=== PATIENT | female | born 1945 | race Caucasian/White ===

== ENCOUNTER 2016-12-13 18:21 | Inpatient (IN) | payer MEDICARE, MEDICAID ==
--- NOTE | 2016-12-13 19:25 | ED Physician Chart ---
Chief Complaint/HPI - Patient Information Date Seen:: 12/13/16 Time Seen:: 19:22 Chief Complaint:: l side pain History of Present Illness:: pt began w a "rash " on left hip area on monday. no known hx of trauma or a fall. dtr is usually nearby when pt is in motion and doubts a fall could have occurred. pt was walking yesterday but after her dialysis session complained l leg pain worse and wont walk. pt has prior fx/sx of l hip. pt says rash very tndr to lt touch. no fever. no known hx of sciatic type pains. pt asks for pain med..is not usually on pain meds Vitals:: Vital Signs - 8 hr 12/13/16 18:55 Temp 98.4 F HR 115 RR 16 BP 113/68 O2 Sat % 98 Historian:: Patient, Family Member (dtr) Review of Systems - Review of Systems General/Constitutional: No fever, No chills, No weight loss, No weakness, No diaphoresis, No edema, No loss of appetite Skin: No skin lesions, No rash, No bruising Head: No headache, No light-headedness Eyes: No loss of vision, No pain, No diplopia ENT: No earache, No nasal drainage, No sore throat, No tinnitus Neck: No neck pain, No swelling, No thyromegaly, No stiffness, No mass noted Cardio Vascular: No chest pain, No palpitations, No PND, No orthopnea, No edema Pulmonary: No SOB, No cough, No sputum, No wheezing GI: No nausea, No vomiting, No diarrhea, No pain, No melena, No hematochezia, No constipation, No hematemesis G/U: No dysuria, No frequency, No hematuria Musculoskeletal: No bone or joint pain, No back pain, No muscle pain, Other ( pain along l lat side/flank/hip) Endocrine: No polyuria, No polydipsia Psychiatric: No prior psych history, No depression, No anxiety, No suicidal ideation Hematopoietic: No bruising, No lymphadenopathy Allergic/Immuno: No urticaria, No angioedema Neurological: No syncope, No focal symptoms, No weakness, No paresthesia, No headache, No seizure, No dizziness, No confusion, No vertigo Past Medical History - Past Medical History Past Medical History: DM, CVA/TIA (loss vision rt eye only), ESRD (dialysis m/w/ f), Other (a fib hx but not on rate meds , non-etoh related cirrhosis) Social History: Other (lives in [facility] alone) Surgical History: other (dialysis shunt left bicep) Medication: Reviewed Physical Exam - Physical Examination General/Constitutional: Awake, Well-developed, well-nourished, Alert, No distress, GCS 15, Non-toxic appearing, Ambulatory Other Gen/Cons comments:: mod obese. wont walk now. Head: Atraumatic Eyes: Lids, conjuctiva normal, PERRL, EOMI Skin: Nl inspection, No rash, No skin lesions, No ecchymosis, Well hydrated, No lymphadenopathy ENMT: External ears, nose nl, Nasal exam nl, Lips, teeth, gums nl Neck: Nontender, Full ROM w/o pain, No JVD, No nuchal rigidity, No bruit, No mass, No stridor Respiratory: Nl effort/Exclusion, Clear to Auscultation, No Wheeze/Rhonchi/Rales Cardio Vascular: No murmur, gallop, rubs, NL S1 S2 Other Cardio Vascular comments:: irreg irreg hrt beat w ? slt murmur GI: No tenderness/rebounding/guarding, No organomegaly, No hernia, Normal BS's, Nondistended, No mass/bruits, No McBurney tenderness : No CVA tenderness Extremities: No tenderness or effusion, Full ROM, normal strength in all extremities, No edema, Normal digits & nails Other Extremities comments:: dialysis shunt left bicep..clean , no infection left side has ecchymosis from left hip to thigh and up side to flank. pt refuses to straight leg raise on l due to pain. sensation in feet ok. Neuro/Psych: Alert/oriented, DTR's symmetric, Normal sensory exam, Normal motor strength, Judgement/insight normal, Mood normal, Normal gait, No focal deficits Misc: normal gait, Normal back, No paraspinal tenderness Labs/Radiology/EKG Results - Lab Results Results: Laboratory Tests 12/13/16 12/13/16 12/13/16 19:37 19:37 19:37 WBC 4.5 L RBC 3.62 L Hgb 12.6 Hct 37.9 MCV 104.8 H MCH 34.8 H MCHC Differential 33.2 RDW 18.1 Plt Count 44 L MPV 9.3 Band Neutrophils % 12 H Neutrophils (Manual) 80 Lymphocytes 4 L Monocytes 4 Eosinophils 0 Basophils 0 Platelet Estimate DECREASED PLATELETS Platelet Morphology NORMAL RBC Morph Micro Appear NORMAL PT 14.5 H INR 1.37 PTT (Actin FS) 39.0 H Sodium 134 L Potassium 2.9 L* Chloride 97 L Carbon Dioxide 26.7 Anion Gap 13.2 BUN 40 H Creatinine 5.2 H* Est GFR ( Amer) TNP Est GFR (Non-Af Amer) TNP BUN/Creatinine Ratio 7.7 Glucose 141 H Calcium 9.2 Total Bilirubin 2.0 H AST 29 ALT 14 Alkaline Phosphatase 129 H Total Protein 5.6 L Albumin 2.7 L Globulin 2.9 Albumin/Globulin Ratio 0.9 L - Radiology Results Results: rt hip xray - no fx. old hardware from hip replacement ok - EKG Interpretations EKG Time:: 19:45 Rate & Rhythm: a fib w 104 v rate Ririe: 34 Intervals: qtc 487 ED Septic Shock - . Is Septic Shock (SBP<90, OR Lactate>4 mmol\\L) present?: No - <6hrs of presentation: Vital Signs: Vital Signs - 8 hr 12/13/16 18:55 Temp 98.4 F HR 115 RR 16 BP 113/68 O2 Sat % 98 Reassessment (Disposition) - Reassessment Reassessment:: clinical thinking- rash seems most consistent w trauma but report is none occurred. story seems cw a herpez zostre but appearance of rash seems to not correlate as rash crosses many dermatomes and is ecchymosis and not vessicular. doesnt appear to be cellulitis. given pts poor reserve and severe pain syndrome and uncertain dx have advised admit. concerns include pemphigus vulgarus or infection or bleeding dyscrasia. d/w dr chaidez..will admit. Reassessment Condition:: Improved - Diagnosis Diagnosis:: 1 left leg/flank pain 2 rash of uncertain etiology r/o infection of blood dyscrasia 3 renal failure//dialysis pt 4 stable chronic a fib - Patient Disposition Admitted to:: Telemetry Condition at Disposition:: Improved
[2016-12-13] MEDS ORDERED: Morphine Sulfate 2 mg/mL 1mL Syr IVP STA ×2 (19:29→21:32)
[2016-12-13] MEDS ORDERED: Morphine Sulfate 2 mg/mL 1mL Syr ONE ×2 (19:49→21:33)
[2016-12-13 19:55] LABS: HEMATOCRIT 37.9 % (35.0-45.0); HEMOGLOBIN 12.6 gm/dL (11.7-16.1); MEAN CELL VOLUME 104.8 fl (81-100); MEAN CORPUSCULAR HEMOGLOBIN 34.8 pg (27.0-31.0); MEAN CORPUSCULAR HGB CONC 33.2 pg (28.0-36.0); MEAN PLATELET VOLUME 9.3 fl; PLATELET COUNT 44 Th/cmm (150-400); RED BLOOD COUNT 3.62 Mil/cmm (3.80-5.20); RED CELL DISTRIBUTION WIDTH 18.1 % (11.5-20.0); WHITE BLOOD COUNT 4.5 Th/cmm (4.8-10.8)
[2016-12-13 20:01] LABS: ALB/GLOB RATIO 0.9 (1.0-1.8); ALKALINE PHOSPHATASE 129 U/L (34-104); ANION GAP 13.2 (7.0-16.0); BUN - UREA NITROGEN 40 mg/dL (7-25); BUN/CREATININE RATIO 7.7; CALCIUM SERUM 9.2 mg/dL (8.6-10.3); CARBON DIOXIDE 26.7 mEq/L (21.0-31.0); CHLORIDE 97 mEq/L (98-107); GLUCOSE 141 mg/dL (70-105); SGOT 29 U/L (13-39); SGPT/ALT 14 U/L (7-52); SODIUM SERUM 134 mEq/L (136-145)
[2016-12-13 20:16] LABS: POTASSIUM SERUM 2.9 mEq/L (3.5-5.1)
[2016-12-13 20:19] LABS: CREATININE - SERUM 5.2 mg/dL (0.6-1.2)
[2016-12-13 20:48] LABS: TOTAL CELLS COUNTED 100
[2016-12-13 21:10] LABS: BAND NEUTROPHILE 12 % (0-10); INR 1.37 (0.5-1.4); NEUTROPHILS 80 % (40-80); PROTHROMBIN TIME (TEST) 14.5 SECONDS (9.5-11.5)
[2016-12-13 21:11] LABS: BASOPHIL 0 % (0-3); EOSINOPHIL 0 % (0-5); PLATELET ESTIMATE DECREASED PLATELETS (NORMAL); PLATELET MORPHOLOGY NORMAL (NORMAL)
[2016-12-14] MEDS: Morphine Sulfate 2 mg/mL 1mL Syr IVP PRN ×3 (02:29→22:59)
--- NOTE | 2016-12-14 08:10 | Diagnostic Imaging Report ---
Left hip 2 views Indication: Pain and ecchymosis, rule out fracture Comparison: none Findings: A bipolar left hip hemiarthroplasty is noted.1-2 mm space is seen between the superior aspect of the acetabular component and the superior left acetabulum. No evidence of an acute fracture or dislocation. Atherosclerotic vascular disease is noted. Degenerative changes lower lumbar spine are noted. Impression: Evidence of previous bipolar left hip hemiarthroplasty. No evidence of an acute fracture. 1 to 2 mm space between the superior aspect of the left acetabular component of the prosthesis and the superior left acetabulum. This may be within the range of normal. Please correlate patient's clinical findings and old exams. In the setting of trauma, if clinical symptoms persist and there is continued concern for an occult fracture, follow up exams in 5-7 days is suggested.
--- NOTE | 2016-12-14 08:18 | History and Physical ---
History of Present Illness - HPI Chief Complaint: Left Side Pain HPI: 71 year old female who present with complaints of pain to the left side. Patient began with rash to the left hip area on Monday. no falls or trauma or fall. Patient had dialysis yesterday after which she developed pain to the left leg. Patient has previous history of fx to the left hip. patient has tender rash to the left hip. no fever. Vital Signs: Last Vital Signs Temp 97.0 F 12/14/16 04:33 Pulse 103 12/14/16 04:33 Resp 17 12/14/16 04:33 BP 107/68 12/14/16 04:33 Pulse Ox 96 12/14/16 00:33 Past Medical History Cardiovascular: Report: No Pertinent Hx Pulmonary: Report: No Pertinent Hx [employer]: Report: CVA, TIA GI: Report: No Pertinent Hx Psych: Report: No Pertinent Hx Musculoskeletal: Report: No Pertinent Hx Rheumatologic: Report: No pertinent Hx Infectious Disease: Report: No Pertinent Hx Renal/: Report: No Pertinent Hx, Other (ESRD) Endocrine: Report: Diabetes Dermatology: Report: No Pertinent Hx - Past Surgical History Past Surgical History: No pertinent Hx Family Medical History - Family Member Mother History Unknown: Yes Social History Smoke: No Alcohol: None Drugs: None Lives: With Family - Medications Home Medications: Home Medication Medication Instructions Recorded Type Cacium Carbonate 648 mg PO TID 12/13/16 History Calcitriol [Rocaltrol] 1 tab PO DAILY 12/13/16 History Folic Acid [Folate*] 1 tab PO DAILY 12/13/16 History Folic Acid/Vit Bcomp,C [Full 1 tab PO DAILY 12/13/16 History Spectrum B with Vit C Tab] Pantoprazole Sodium 1 tab PO DAILY 12/13/16 History Propranolol HCl [Inderal*] 1 tab PO TID 12/13/16 History Rifaximin [Xifaxan] 1 tab PO Q12H 12/13/16 History Sevelamer Carnonate [Renvela] 1 tab PO TID 12/13/16 History Tramadol HCl [Ultram] 1 tab PO Q8H 12/13/16 History Vit D2 1.25 mg PO QWEEK 0730 12/13/16 History - Allergies Allergies/Adverse Reactions: Allergies Allergy/AdvReac Type Severity Reaction Status Date / Time No Known Allergies Allergy Verified 12/13/16 19:23 Review of Systems - Review of Systems Constitutional: Report: No Significant Eyes: Report: No Significant ENT: Report: No Significant Respiratory: Report: No Significant Cardiovascular: Report: No Significant Gastrointestinal: Report: No Significant Genitourinary: Report: No Significant Musculoskeletal: Report: No Significant Skin: Report: No Significant Neurological: Report: No Significant Physical Exam - Physical Exam HEENT: Report: Ears Nose Throat within normal limits, Pharnyx within normal limits Neck: Report: Within normal limits Cardiovascular Systems: Report: +s1/s2 noted, Irregular rhythm was noted Respiratory: Report: Breath Sounds are within normal limits, Clear to Auscultation of lung conn Abdomen: Report: Non-tender to palpation Back: Report: Inspection of back is within normal limits. Extremities: Report: Non-tender to palpation. Skin: Report: Color of skin is within normal limits, Warm - Lab Results All Lab Results last 24 hours: Laboratory Last Values WBC 4.5 Th/cmm (4.8-10.8) L 12/13/16 19:37 RBC 3.62 Mil/cmm (3.80-5.20) L 12/13/16 19:37 Hgb 12.6 gm/dL (11.7-16.1) 12/13/16 19:37 Hct 37.9 % (35.0-45.0) 12/13/16 19:37 MCV 104.8 fl (81-100) H 12/13/16 19:37 MCH 34.8 pg (27.0-31.0) H 12/13/16 19:37 MCHC Differential 33.2 pg (28.0-36.0) 12/13/16 19:37 RDW 18.1 % (11.5-20.0) 12/13/16 19:37 Plt Count 44 Th/cmm (150-400) L 12/13/16 19:37 MPV 9.3 fl 12/13/16 19:37 Band Neutrophils % 12 % (0-10) H 12/13/16 19:37 Neutrophils (Manual) 80 % (40-80) 12/13/16 19:37 Lymphocytes 4 % (20-50) L 12/13/16 19:37 Monocytes 4 % (2-10) 12/13/16 19:37 Eosinophils 0 % (0-5) 12/13/16 19:37 Basophils 0 % (0-3) 12/13/16 19:37 Platelet Estimate DECREASED PLATELETS (NORMAL) 12/13/16 19:37 Platelet Morphology NORMAL (NORMAL) 12/13/16 19:37 RBC Morph Micro Appear NORMAL (NORMAL) 12/13/16 19:37 PT 14.5 SECONDS (9.5-11.5) H 12/13/16 19:37 INR 1.37 (0.5-1.4) 12/13/16 19:37 PTT (Actin FS) 39.0 SECONDS (26.0-38.0) H 12/13/16 19:37 Sodium 134 mEq/L (136-145) L 12/13/16 19:37 Potassium 2.9 mEq/L (3.5-5.1) L* 12/13/16 19:37 Chloride 97 mEq/L (98-107) L 12/13/16 19:37 Carbon Dioxide 26.7 mEq/L (21.0-31.0) 12/13/16 19:37 Anion Gap 13.2 (7.0-16.0) 12/13/16 19:37 BUN 40 mg/dL (7-25) H 12/13/16 19:37 Creatinine 5.2 mg/dL (0.6-1.2) H* 12/13/16 19:37 Est GFR ( Amer) TNP 12/13/16 19:37 Est GFR (Non-Af Amer) TNP 12/13/16 19:37 BUN/Creatinine Ratio 7.7 12/13/16 19:37 Glucose 141 mg/dL (70-105) H 12/13/16 19:37 Calcium 9.2 mg/dL (8.6-10.3) 12/13/16 19:37 Total Bilirubin 2.0 mg/dL (0.3-1.0) H 12/13/16 19:37 AST 29 U/L (13-39) 12/13/16 19:37 ALT 14 U/L (7-52) 12/13/16 19:37 Alkaline Phosphatase 129 U/L (34-104) H 12/13/16 19:37 Total Protein 5.6 gm/dL (6.0-8.3) L 12/13/16 19:37 Albumin 2.7 gm/dL (3.7-5.3) L 12/13/16 19:37 Globulin 2.9 gm/dL 12/13/16 19:37 Albumin/Globulin Ratio 0.9 (1.0-1.8) L 12/13/16 19:37 - Assessment Assessment: left leg pain secondary to #2 rash suspicious of herpes zoster ... will order acyclovir PO and gabapentin PO. Will order ID consult with Dr. Shemar Negron ESRD on HD .. renal consult dialysis per nephrology DM .. will order HgA1c, TSH CVA/TIA hypokalemia ... will repeat K+ chronic atrial fibrillation ... will order cardiology consult. ECHO to be read by Cardiology. - Plan Plan: left leg pain rash suspicious of herpes zoster ... will order acyclovir PO and gabapentin PO ESRD on HD .. renal consult dialysis per renal DM CVA/TIA hypokalemia ... will repeat K+ chronic atrial fibrillation ... will order cardiology consult. ECHO to be read by Cardiology.
[2016-12-14 09:26] LABS: HEMATOCRIT 39.4 % (35.0-45.0); HEMOGLOBIN 12.8 gm/dL (11.7-16.1); MEAN CELL VOLUME 103.3 fl (81-100); MEAN CORPUSCULAR HEMOGLOBIN 33.7 pg (27.0-31.0); MEAN CORPUSCULAR HGB CONC 32.6 pg (28.0-36.0); MEAN PLATELET VOLUME 9.3 fl; PLATELET COUNT 48 Th/cmm (150-400); RED BLOOD COUNT 3.81 Mil/cmm (3.80-5.20)
[2016-12-14 09:27] LABS: WHITE BLOOD COUNT 6.5 Th/cmm (4.8-10.8)
[2016-12-14 09:37] LABS: TOTAL CELLS COUNTED 100
[2016-12-14 09:42] LABS: BAND NEUTROPHILE 7 % (0-10); NEUTROPHILS 87 % (40-80)
[2016-12-14 09:43] LABS: PLATELET ESTIMATE DECREASED PLATELETS (NORMAL)
[2016-12-14 09:44] LABS: PLATELET MORPHOLOGY NORMAL (NORMAL)
[2016-12-14 10:52] LABS: ALB/GLOB RATIO 0.9 (1.0-1.8); ALKALINE PHOSPHATASE 132 U/L (34-104); ANION GAP 15.8 (7.0-16.0); BUN - UREA NITROGEN 45 mg/dL (7-25); BUN/CREATININE RATIO 7.8; CALCIUM SERUM 8.9 mg/dL (8.6-10.3); CARBON DIOXIDE 27.6 mEq/L (21.0-31.0); CHLORIDE 95 mEq/L (98-107); GLUCOSE 157 mg/dL (70-105); POTASSIUM SERUM 3.4 mEq/L (3.5-5.1); SGOT 29 U/L (13-39); SGPT/ALT 14 U/L (7-52); SODIUM SERUM 135 mEq/L (136-145)
[2016-12-14 10:58] LABS: CREATININE - SERUM 5.8 mg/dL (0.6-1.2)
[2016-12-14] MEDS: Vitamin B Complex w/Vitamin C Tab PO SCH (11:59)
[2016-12-14] MEDS: Sevelamer Carnonate 800 mg Tab PO SCH ×3 (12:00→21:03)
[2016-12-14] MEDS: Pantoprazole 40 mg EC Tab PO SCH (12:00)
--- NOTE | 2016-12-14 23:39 | Consultation ---
Consult Note - Consult Note Service Date: 12/14/16 Referring Physician: Rod Domínguez Consult Note: PHYSICIAN Consultation Note: Date of Admission: 12/13/16 Purpose of Consultation: painful skin lesion in L hip and leg pain. Chief Complaint: Patient SHIRIN CLARKE was admitted to [facility] Telemetry with RENAL FAILURE-L HIP PAIN-A-FIB. History of Present Illness: Patient is a 71 year female with a past medical history her CKD on hemodialysis , hypertension, diabetes mellitus type 2, atrial fibrillation, history of TIA admitted to the hospital for left hip pain with blister formation with underlying erythema. There is a large area of darkening of the skin with pain in the left leg. Patient has no fever. No chills. Past Medical History: CKD 5 on HD, HTN, DM2, CHRONIC ATRIAL FIBRILLATION, H/O TIA. Diagnoses ZOSTER WITHOUT COMPLICATIONS (12/13/16) TYPE 2 DIABETES MELLITUS W DIABETIC CHRONIC KIDNEY DISEASE (12/13/16) HYPOKALEMIA (12/13/16) HYP CHR KIDNEY DISEASE W STAGE 5 CHR KIDNEY DISEASE OR ESRD (12/13/16) CHRONIC ATRIAL FIBRILLATION (12/13/16) PAIN IN LEFT HIP (12/13/16) END STAGE RENAL DISEASE (12/13/16) PRSNL HX OF TIA (TIA), AND CEREB INFRC W/O RESID DEFICITS (12/13/16) DEPENDENCE ON RENAL DIALYSIS (12/13/16) Allergies Allergy/AdvReac Type Severity Reaction Status Date / Time No Known Allergies Allergy Verified 12/13/16 19:23 Vital Signs Temp 99.5 F 12/14/16 20:00 Pulse 96 12/14/16 21:04 Resp 18 12/14/16 20:00 BP 94/55 12/14/16 21:04 Pulse Ox 97 12/14/16 20:00 Intake & Output 12/14/16 12/14/16 12/15/16 06:59 18:59 06:59 Intake Total 30 400 Balance 30 400 Weight (lbs) 66.224 kg 66.224 kg Intake: Oral 30 400 Other: # Bowel Movements 0 1 Stool Characteristics Soft Laboratory Results - last 24 hr 12/14/16 12/14/16 12/14/16 08:50 08:50 08:50 WBC 6.5 D RBC 3.81 Hgb 12.8 Hct 39.4 MCV 103.3 H MCH 33.7 H MCHC Differential 32.6 RDW 18.0 Plt Count 48 L MPV 9.3 Band Neutrophils % 7 Neutrophils (Manual) 87 H Lymphocytes 3 L Monocytes 3 Platelet Estimate DECREASED PLATELETS Platelet Morphology NORMAL Sodium 135 L Potassium 3.4 L Chloride 95 L Carbon Dioxide 27.6 Anion Gap 15.8 BUN 45 H Creatinine 5.8 H* Est GFR ( Amer) TNP Est GFR (Non-Af Amer) TNP BUN/Creatinine Ratio 7.8 Glucose 157 H Calcium 8.9 Total Bilirubin 2.0 H AST 29 ALT 14 Alkaline Phosphatase 132 H Total Protein 5.4 L Albumin 2.6 L Globulin 2.8 Albumin/Globulin Ratio 0.9 L TSH 2.67 Home Medication Medication Instructions Recorded Type Cacium Carbonate 648 mg PO TID 12/13/16 History Calcitriol [Rocaltrol] 1 tab PO DAILY 12/13/16 History Folic Acid [Folate*] 1 tab PO DAILY 12/13/16 History Folic Acid/Vit Bcomp,C [Full 1 tab PO DAILY 12/13/16 History Spectrum B with Vit C Tab] Pantoprazole Sodium 1 tab PO DAILY 12/13/16 History Propranolol HCl [Inderal*] 1 tab PO TID 12/13/16 History Rifaximin [Xifaxan] 1 tab PO Q12H 12/13/16 History Sevelamer Carnonate [Renvela] 1 tab PO TID 12/13/16 History Tramadol HCl [Ultram] 1 tab PO Q8H 12/13/16 History Vit D2 1.25 mg PO QWEEK 0730 12/13/16 History Current Medications Generic Name Dose Route Start Last Admin Trade Name Freq PRN Reason Stop Dose Admin Acyclovir 800 mg 12/14/16 13:00 12/14/16 21:04 Zovirax PO 02/12/17 12:59 Not Given Q8HR ESMER Calcitriol 0.25 mcg 12/14/16 09:00 12/14/16 11:56 Rocaltrol PO 02/12/17 08:59 0.25 mcg DAILY ESMER Administration Calcium Carbonate 600 mg 12/14/16 09:00 12/14/16 21:02 Calcium Carb PO 02/12/17 08:59 600 mg TID ESMER Administration Folic Acid 1 mg 12/14/16 09:00 12/14/16 11:55 Folate PO 02/12/17 08:59 1 mg DAILY ESMER Administration Gabapentin 300 mg 12/14/16 09:00 12/14/16 11:55 Neurontin PO 02/12/17 08:59 300 mg DAILY ESMER Administration Miscellaneous 1 ea 12/14/16 11:20 Clinical Monitoring 02/12/17 11:19 DAILY PRN RENAL Morphine Sulfate 2 mg 12/14/16 00:35 12/14/16 22:59 Morphine IVP 02/12/17 00:34 2 mg Q6H PRN Administration Pain (Moderate) Pantoprazole Sodium 40 mg 12/14/16 09:00 12/14/16 12:00 Protonix PO 02/12/17 08:59 40 mg DAILY ESMER Administration Pneumococcal Polyvalent Vaccine 0.5 ml 12/16/16 09:00 Pneumovax IM 12/16/16 09:01 .ONCE ONE Propranolol HCl 20 mg 12/14/16 09:00 12/14/16 21:04 Inderal PO 02/12/17 08:59 Not Given TID ESMER Rifaximin 200 mg 12/14/16 09:00 12/14/16 21:03 Xifaxan PO 02/12/17 08:59 200 mg Q12H ESMER Administration Sevelamer Carbonate 800 mg 12/14/16 09:00 12/14/16 21:03 Renvela PO 02/12/17 08:59 800 mg TID ESMER Administration Tramadol HCl 50 mg 12/14/16 17:00 12/14/16 17:59 Ultram PO 02/12/17 16:59 Not Given Q8H ESMER Vitamin B Complex/Vit C/Folic Acid 1 tab 12/14/16 09:00 12/14/16 11:59 Vitamin B Complex W/Vitamin C PO 02/12/17 08:59 1 tab DAILY ESMER Administration Review of Systems: A 12 point ROS was reviewed with the pertinent positive and negatives noted in the HPI. Social History Smoking Status Never smoker Family Medical History Unknown Physical Exam: General: Comfortable, not in acute distress. Well-nourished well-developed. HEENT: Head: Atraumatic, normocephalic. Oral cavity: Moist, pink tongue. Eyes : Pallor is present and no icterus. Pupils PERRLA. EOMI. Neck: Neck supple no JVD noted to be thick and midline. Cardio: S1 and S2 within normal metabolism normal murmur or gallop Respiratory: CTAP Abdominal: Soft, nontender, nondistended, bowel sounds present Genital/Urinary: Deferred Extremities: No cyanosis, no clubbing, no edema. Left hip: Anterolaterally, there is a tender erythematous lesion with a blister formation. There is a blackening of the skin with blister formation on lateral aspect of leg. Neurological: Alert, awake, oriented 3. No focal neuro deficit. Assessment: 1. Left lower extremity cellulitis, ? doubt shingles. r/o fascitis. 2. ? Shingles of left lower extremity. 3. CKD 5 on HD. 4. DM2 5. HTN. 6. CHRONIC ATRIAL FIBRILLATION. 7. H/O TIA Plan: Start vanco Clinda and zosyn. Continue acyclovir, change to the renal dose. Check Xray of left humerus, knee and tibia fibula. Blood cultures. Thank you, Dr. Domínguez, for involving me taking care of this patient. Faiza, Shemar Negron M.D. [id number]
--- NOTE | 2016-12-15 00:04 | Consultation ---
DATE OF CONSULTATION: 12/14/[address] Olmos. HISTORY AND PHYSICAL: This is a 71-year-old female patient came to the Emergency Room complaining of pain in the hip. The patient was found to have shingles. During that stay, the patient was found to have atrial fibrillation with rapid ventricular response and hence cardiac consult is requested. PAST MEDICAL HISTORY: Diabetes mellitus type 2, insulin-dependent diabetes mellitus, diabetic CKD stage V, end-stage renal disease, on dialysis; iron deficiency anemia, hyperkalemia, atrial fibrillation, shingles in the left thigh, shingles neuropathy. FAMILY HISTORY: Unremarkable. SOCIAL HISTORY: No history of smoking, alcohol abuse. ALLERGIES: None. PHYSICAL EXAMINATION: VITAL SIGNS: Blood pressure 130/80, pulse 110 irregular, respirations 28. HEAD: Normocephalic. No lumps or bumps. EYES: Pupils equal, reactive to light. Fundi show AV nicking, sclerae white, conjunctivae pink. NECK: Carotid 2+. Normal upstroke. JVD flat. Thyroid not palpable. Lymph nodes not palpable. CHEST: Shows increased AP diameter. No kyphosis, scoliosis. LUNGS: Bilateral bronchovesicular breath sounds. HEART: PMI fifth intercostal space with lateral to midclavicular line. S1, S2. No S3, S4. ____. Systolic murmur, grade 2/6, lower left sternal border without radiation. ABDOMEN: Soft. Liver, spleen not palpable. No organomegaly. Bowel sounds active. NEUROLOGIC: No focal neurological deficit except shingles neuropathy. EXTREMITIES: Peripheral pulses 1+. No pedal edema. CLINICAL IMPRESSION: Atrial fibrillation with rapid ventricular response, diabetes mellitus type 2, insulin-dependent diabetes mellitus, diabetic chronic kidney disease stage V, end-stage renal disease, on dialysis, iron deficiency anemia, shingles on the left thigh with shingles neuropathy, hyperkalemia. PLAN: Admit the patient. We will give Kayexalate, control the heart rate. Continue dialysis with ultrafiltration. Start the patient on acyclovir with gabapentin and control diabetes. [facility]# [id number]
[2016-12-15] MEDS ORDERED: Clindamycin 600mg/50mL 600 MG/50 ML BAG IV ONE (00:15)
[2016-12-15] MEDS ORDERED: Clindamycin 150 mg/mL 4mL Vial ONE (00:39)
[2016-12-15] MEDS ORDERED: Piperacillin Sodium/Tazobact 2.25 gm Vial IV ONE (00:40)
--- NOTE | 2016-12-15 04:06 | Consultation ---
DATE OF CONSULTATION: 12/14/2016 HISTORY OF PRESENT ILLNESS: The patient was seen by courtesy of Dr. Domínguez. The patient is seen at [facility]. The patient is a 71-year-old dialysis patient known to us from our dialysis unit who has been admitted to the hospital with 3 days of excruciating pain in her left eye. The patient has a history of diabetes mellitus, hypertension, diabetic nephropathy and seizure disease, on hemodialysis for more than 3 years, has been on dialysis, also has nonalcoholic cirrhosis of liver. Had a left hip surgery done in the recent past; had some ecchymosis and tenderness in her belly followed by improvement of the ecchymosis; however, 3 days ago, the patient had worsening of ecchymosis and redness of the left thigh, which turned into inflammation and excruciating pain that the patient came to the Emergency Room for further management. ALLERGIES: NO KNOWN ALLERGIES. AST MEDICAL HISTORY: The patient had atrial fibrillation; history of hypertension; diverticulitis; nonalcoholic cirrhosis; stroke; peripheral vascular disease; TIA with right eye blindness; end-stage renal disease, on dialysis on Monday, Monday and Monday; atrial fibrillation as mentioned. SOCIAL HISTORY: Nonsmoker, nonalcoholic, supportive family. SURGICAL HISTORY: Significant history of access in the left arm. PHYSICAL EXAMINATION: VITAL SIGNS: Blood pressure is 105 systolic, diastolic 56, afebrile, pulse is 130. HEENT: Pupils are reactive, right eye poorly responsive to light reaction. NECK: JVP is collapsed. Central trachea. LUNGS: Clear. ABDOMEN: Soft with ecchymosis in the lower part of the abdomen, surgical scar noted for possible hysterectomy in the past. EXTREMITIES: The patient has bruits on the left arm where the access has been done in the past. The patient's left thigh is tender to touch with ecchymosis and redness and warmth. The lower extremity pulses are intact. NEUROLOGIC: The patient is alert and oriented times person, mild to moderate distress because of the pain. INVESTIGATION: WBC count of 4.5 and now 6.5, H and H of 12.8 and 39.4. INR of 1.37. Sodium 134, potassium 2.9, BUN and creatinine is 40 and 5.2, calcium 9.2. AST, ALT normal range. Total protein 5.6, albumin 2.7. The INR is 1.37 as mentioned. ASSESSMENT AND PLAN: The patient with possible cellulitis and superimposed with infection evaluating the hip, the integrity of the hip replacement as well. Dialysis support will be given. Sliding scale insulin be used for diabetes. Blood pressure, as the patient is hypotensive at this time, we will closely monitor the blood pressure. Liver cirrhosis is stable, compensated. Atrial fibrillation, heart rate is stable with some slight increase in the heart rate of 130. Close monitoring needed. The patient will be scheduled for dialysis while antibiotic will be given for possible cellulitis and physical therapy will be continued. In the interim, I thank Dr. Domínguez for asking me to see the patient. JOB# [id number]
[2016-12-15] MEDS: Piperacillin/Tazobact 2.25 gm in 0.9% NS 50 ML IV SCH ×2 (05:50→12:02)
[2016-12-15 07:55] LABS: MEAN CELL VOLUME 104.6 fl (81-100); RED CELL DISTRIBUTION WIDTH 18.2 % (11.5-20.0)
[2016-12-15 08:00] LABS: HEMATOCRIT 38.9 % (35.0-45.0); HEMOGLOBIN 12.7 gm/dL (11.7-16.1); MEAN CORPUSCULAR HEMOGLOBIN 34.1 pg (27.0-31.0); MEAN CORPUSCULAR HGB CONC 32.6 pg (28.0-36.0); MEAN PLATELET VOLUME 10.3 fl; PLATELET COUNT 44 Th/cmm (150-400); RED BLOOD COUNT 3.72 Mil/cmm (3.80-5.20); WHITE BLOOD COUNT 6.7 Th/cmm (4.8-10.8)
--- NOTE | 2016-12-15 08:17 | General Progress Note ---
Subjective - Review of Systems Service Date: 12/15/16 Subjective: Awake,Alert,afebrile. no acute distress. Complains of left hip pain. Left Hip Xray negative for fractures. Patient states pain is better. Objective - Results Result Diagrams: 12/15/16 07:44 12/14/16 08:50 Recent Labs: Laboratory Last Values WBC 6.5 Th/cmm (4.8-10.8) D 12/14/16 08:50 RBC 3.81 Mil/cmm (3.80-5.20) 12/14/16 08:50 Hgb 12.8 gm/dL (11.7-16.1) 12/14/16 08:50 Hct 39.4 % (35.0-45.0) 12/14/16 08:50 MCV 103.3 fl (81-100) H 12/14/16 08:50 MCH 33.7 pg (27.0-31.0) H 12/14/16 08:50 MCHC Differential 32.6 pg (28.0-36.0) 12/14/16 08:50 RDW 18.0 % (11.5-20.0) 12/14/16 08:50 Plt Count 48 Th/cmm (150-400) L 12/14/16 08:50 MPV 9.3 fl 12/14/16 08:50 Band Neutrophils % 7 % (0-10) 12/14/16 08:50 Neutrophils (Manual) 87 % (40-80) H 12/14/16 08:50 Lymphocytes 3 % (20-50) L 12/14/16 08:50 Monocytes 3 % (2-10) 12/14/16 08:50 Eosinophils 0 % (0-5) 12/13/16 19:37 Basophils 0 % (0-3) 12/13/16 19:37 Platelet Estimate DECREASED PLATELETS (NORMAL) 12/14/16 08:50 Platelet Morphology NORMAL (NORMAL) 12/14/16 08:50 RBC Morph Micro Appear NORMAL (NORMAL) 12/13/16 19:37 PT 14.5 SECONDS (9.5-11.5) H 12/13/16 19:37 INR 1.37 (0.5-1.4) 12/13/16 19:37 PTT (Actin FS) 39.0 SECONDS (26.0-38.0) H 12/13/16 19:37 Sodium 135 mEq/L (136-145) L 12/14/16 08:50 Potassium 3.4 mEq/L (3.5-5.1) L 12/14/16 08:50 Chloride 95 mEq/L (98-107) L 12/14/16 08:50 Carbon Dioxide 27.6 mEq/L (21.0-31.0) 12/14/16 08:50 Anion Gap 15.8 (7.0-16.0) 12/14/16 08:50 BUN 45 mg/dL (7-25) H 12/14/16 08:50 Creatinine 5.8 mg/dL (0.6-1.2) H* 12/14/16 08:50 Est GFR ( Amer) TNP 12/14/16 08:50 Est GFR (Non-Af Amer) TNP 12/14/16 08:50 BUN/Creatinine Ratio 7.8 12/14/16 08:50 Glucose 157 mg/dL (70-105) H 12/14/16 08:50 Calcium 8.9 mg/dL (8.6-10.3) 12/14/16 08:50 Total Bilirubin 2.0 mg/dL (0.3-1.0) H 12/14/16 08:50 AST 29 U/L (13-39) 12/14/16 08:50 ALT 14 U/L (7-52) 12/14/16 08:50 Alkaline Phosphatase 132 U/L (34-104) H 12/14/16 08:50 Total Protein 5.4 gm/dL (6.0-8.3) L 12/14/16 08:50 Albumin 2.6 gm/dL (3.7-5.3) L 12/14/16 08:50 Globulin 2.8 gm/dL 12/14/16 08:50 Albumin/Globulin Ratio 0.9 (1.0-1.8) L 12/14/16 08:50 TSH 2.67 uIU/ml (0.34-5.60) 12/14/16 08:50 - Physical Exam Vitals and I&O: Vital Signs Temp 97.6 F 12/15/16 05:00 Pulse 68 12/15/16 05:00 Resp 18 12/15/16 05:00 BP 136/86 12/15/16 05:00 Pulse Ox 98 12/15/16 05:00 Intake & Output 12/14/16 12/15/16 12/15/16 18:59 06:59 18:59 Intake Total 400 450 Output Total 2 Balance 400 448 Weight (lbs) 66.224 kg 66.224 kg Intake: Intake, IV Amount 450 Clindamycin 600mg/50mL 50 600 mg In 50 ml @ 100 mls /hr IV ONCE ONE Rx#: [id number] Clindamycin 600mg/50mL 50 600 mg In 50 ml @ 100 mls /hr IV Q8HR [facility] Rx#: [id number] Piperacillin Sodium/ 50 Tazobact 2.25 gm In Sodium Chloride 0.9% 50 ml @ 100 mls/hr IV ONCE ONE Rx#:[id number] Piperacillin Sodium/ 50 Tazobact 2.25 gm In Sodium Chloride 0.9% 50 ml @ 100 mls/hr IV Q8HR [facility] Rx#:[id number] Vancomycin HCl 1 gm In 250 Sodium Chloride 0.9% 250 ml @ 165 mls/hr IV ONCE ONE Rx#:[id number] Oral 400 Output: Urine 2 Other: # Bowel Movements 1 2 Stool Characteristics Soft Active Medications: Current Medications Acyclovir (Zovirax) 400 mg PO DAILY [facility] Stop: 02/13/17 08:59 Calcitriol (Rocaltrol) 0.25 mcg PO DAILY [facility] Stop: 02/12/17 08:59 Last Admin: 12/14/16 11:56 Dose: 0.25 mcg Calcium Carbonate (Calcium Carb) 600 mg PO TID [facility] Stop: 02/12/17 08:59 Last Admin: 12/14/16 21:02 Dose: 600 mg Folic Acid (Folate) 1 mg PO DAILY [facility] Stop: 02/12/17 08:59 Last Admin: 12/14/16 11:55 Dose: 1 mg Gabapentin (Neurontin) 300 mg PO DAILY [facility] Stop: 02/12/17 08:59 Last Admin: 12/14/16 11:55 Dose: 300 mg Clindamycin Phosphate (Cleocin Pb) 600 mg in 50 mls @ 100 mls/hr IV Q8HR [facility] Stop: 02/13/17 04:59 Last Infusion: 12/15/16 05:30 Dose: Infused Piperacillin Sod/Tazobactam (Sod 2.25 gm/ Sodium Chloride) 50 mls @ 100 mls/hr IV Q8HR [facility] Stop: 02/13/17 04:59 Last Infusion: 12/15/16 06:20 Dose: Infused Miscellaneous (Clinical Monitoring) 1 ea DAILY PRN PRN Reason: RENAL Stop: 02/12/17 11:19 Miscellaneous (Vancomycin Iv Per Pharmacy) 1 ea PRN [facility] Stop: 02/13/17 00:14 Morphine Sulfate (Morphine) 2 mg IVP Q6H PRN PRN Reason: Pain (Moderate) Stop: 02/12/17 00:34 Last Admin: 12/14/16 22:59 Dose: 2 mg Pantoprazole Sodium (Protonix) 40 mg PO DAILY [facility] Stop: 02/12/17 08:59 Last Admin: 12/14/16 12:00 Dose: 40 mg Pneumococcal Polyvalent Vaccine (Pneumovax) 0.5 ml IM .ONCE ONE Stop: 12/16/16 09:01 Propranolol HCl (Inderal) 20 mg PO TID [facility] Stop: 02/12/17 08:59 Last Admin: 12/14/16 21:04 Dose: Not Given Rifaximin (Xifaxan) 200 mg PO Q12H [facility] Stop: 02/12/17 08:59 Last Admin: 12/14/16 21:03 Dose: 200 mg Sevelamer Carbonate (Renvela) 800 mg PO TID [facility] Stop: 02/12/17 08:59 Last Admin: 12/14/16 21:03 Dose: 800 mg Tramadol HCl (Ultram) 50 mg PO Q8H [facility] Stop: 02/12/17 16:59 Last Admin: 12/15/16 01:30 Dose: 50 mg Vitamin B Complex/Vit C/Folic Acid (Vitamin B Complex W/Vitamin C) 1 tab PO DAILY [facility] Stop: 02/12/17 08:59 Last Admin: 12/14/16 11:59 Dose: 1 tab General: Alert, Oriented x3, No acute distress HEENT: Atraumatic, PERRLA, EOMI Neck: Supple Cardiovascular: Regular rate, Normal S1, Normal S2 Lungs: Clear to auscultation Abdomen: Bowel sounds Extremities: Edema, no Clubbing, no Cyanosis Skin: Rash (left hip and lower leg) Assessment/Plan - Assessment Assessment: left leg pain secondary to #2 rash suspicious of herpes zoster ... will order acyclovir PO and gabapentin PO. Will order ID consult with Dr. Shemar Negron ESRD on HD .. renal consult dialysis per nephrology DM .. will order HgA1c, TSH CVA/TIA hypokalemia ... will repeat K+ chronic atrial fibrillation ... will order cardiology consult. ECHO to be read by Cardiology. - Plan Plan: left leg pain rash suspicious of herpes zoster ... will order acyclovir PO and gabapentin PO ESRD on HD .. renal consult dialysis per renal DM CVA/TIA hypokalemia ... will repeat K+ chronic atrial fibrillation ... will order cardiology consult. ECHO to be read by Cardiology.
--- NOTE | 2016-12-15 08:23 | General Progress Note ---
Subjective - Review of Systems Service Date: 12/15/16 Events since last encounter: c/o left thigh pain. Case D/W Dr Domínguez today. She had dialysis yesterday and is due for another treatment tomorrow. Having multiple bedside Xrays taken at this time. Subjective: c/o left thigh pain and "burning" Objective - Results Result Diagrams: 12/14/16 08:50 12/14/16 08:50 Recent Labs: Laboratory Last Values WBC 6.5 Th/cmm (4.8-10.8) D 12/14/16 08:50 RBC 3.81 Mil/cmm (3.80-5.20) 12/14/16 08:50 Hgb 12.8 gm/dL (11.7-16.1) 12/14/16 08:50 Hct 39.4 % (35.0-45.0) 12/14/16 08:50 MCV 103.3 fl (81-100) H 12/14/16 08:50 MCH 33.7 pg (27.0-31.0) H 12/14/16 08:50 MCHC Differential 32.6 pg (28.0-36.0) 12/14/16 08:50 RDW 18.0 % (11.5-20.0) 12/14/16 08:50 Plt Count 48 Th/cmm (150-400) L 12/14/16 08:50 MPV 9.3 fl 12/14/16 08:50 Band Neutrophils % 7 % (0-10) 12/14/16 08:50 Neutrophils (Manual) 87 % (40-80) H 12/14/16 08:50 Lymphocytes 3 % (20-50) L 12/14/16 08:50 Monocytes 3 % (2-10) 12/14/16 08:50 Eosinophils 0 % (0-5) 12/13/16 19:37 Basophils 0 % (0-3) 12/13/16 19:37 Platelet Estimate DECREASED PLATELETS (NORMAL) 12/14/16 08:50 Platelet Morphology NORMAL (NORMAL) 12/14/16 08:50 RBC Morph Micro Appear NORMAL (NORMAL) 12/13/16 19:37 PT 14.5 SECONDS (9.5-11.5) H 12/13/16 19:37 INR 1.37 (0.5-1.4) 12/13/16 19:37 PTT (Actin FS) 39.0 SECONDS (26.0-38.0) H 12/13/16 19:37 Sodium 135 mEq/L (136-145) L 12/14/16 08:50 Potassium 3.4 mEq/L (3.5-5.1) L 12/14/16 08:50 Chloride 95 mEq/L (98-107) L 12/14/16 08:50 Carbon Dioxide 27.6 mEq/L (21.0-31.0) 12/14/16 08:50 Anion Gap 15.8 (7.0-16.0) 12/14/16 08:50 BUN 45 mg/dL (7-25) H 12/14/16 08:50 Creatinine 5.8 mg/dL (0.6-1.2) H* 12/14/16 08:50 Est GFR ( Amer) TNP 12/14/16 08:50 Est GFR (Non-Af Amer) TNP 12/14/16 08:50 BUN/Creatinine Ratio 7.8 12/14/16 08:50 Glucose 157 mg/dL (70-105) H 12/14/16 08:50 Calcium 8.9 mg/dL (8.6-10.3) 12/14/16 08:50 Total Bilirubin 2.0 mg/dL (0.3-1.0) H 12/14/16 08:50 AST 29 U/L (13-39) 12/14/16 08:50 ALT 14 U/L (7-52) 12/14/16 08:50 Alkaline Phosphatase 132 U/L (34-104) H 12/14/16 08:50 Total Protein 5.4 gm/dL (6.0-8.3) L 12/14/16 08:50 Albumin 2.6 gm/dL (3.7-5.3) L 12/14/16 08:50 Globulin 2.8 gm/dL 12/14/16 08:50 Albumin/Globulin Ratio 0.9 (1.0-1.8) L 12/14/16 08:50 TSH 2.67 uIU/ml (0.34-5.60) 12/14/16 08:50 - Physical Exam Vitals and I&O: Vital Signs Temp 97.6 F 12/15/16 05:00 Pulse 68 12/15/16 05:00 Resp 18 12/15/16 05:00 BP 136/86 12/15/16 05:00 Pulse Ox 98 12/15/16 05:00 Intake & Output 12/14/16 12/15/16 12/15/16 18:59 06:59 18:59 Intake Total 400 450 Output Total 2 Balance 400 448 Weight (lbs) 66.224 kg 66.224 kg Intake: Intake, IV Amount 450 Clindamycin 600mg/50mL 50 600 mg In 50 ml @ 100 mls /hr IV ONCE ONE Rx#: [id number] Clindamycin 600mg/50mL 50 600 mg In 50 ml @ 100 mls /hr IV Q8HR [facility] Rx#: [id number] Piperacillin Sodium/ 50 Tazobact 2.25 gm In Sodium Chloride 0.9% 50 ml @ 100 mls/hr IV ONCE ONE Rx#:[id number] Piperacillin Sodium/ 50 Tazobact 2.25 gm In Sodium Chloride 0.9% 50 ml @ 100 mls/hr IV Q8HR [facility] Rx#:[id number] Vancomycin HCl 1 gm In 250 Sodium Chloride 0.9% 250 ml @ 165 mls/hr IV ONCE ONE Rx#:[id number] Oral 400 Output: Urine 2 Other: # Bowel Movements 1 2 Stool Characteristics Soft Active Medications: Current Medications Acyclovir (Zovirax) 400 mg PO DAILY [facility] Stop: 02/13/17 08:59 Calcitriol (Rocaltrol) 0.25 mcg PO DAILY [facility] Stop: 02/12/17 08:59 Last Admin: 12/14/16 11:56 Dose: 0.25 mcg Calcium Carbonate (Calcium Carb) 600 mg PO TID [facility] Stop: 02/12/17 08:59 Last Admin: 12/14/16 21:02 Dose: 600 mg Folic Acid (Folate) 1 mg PO DAILY [facility] Stop: 02/12/17 08:59 Last Admin: 12/14/16 11:55 Dose: 1 mg Gabapentin (Neurontin) 300 mg PO DAILY [facility] Stop: 02/12/17 08:59 Last Admin: 12/14/16 11:55 Dose: 300 mg Clindamycin Phosphate (Cleocin Pb) 600 mg in 50 mls @ 100 mls/hr IV Q8HR [facility] Stop: 02/13/17 04:59 Last Infusion: 12/15/16 05:30 Dose: Infused Piperacillin Sod/Tazobactam (Sod 2.25 gm/ Sodium Chloride) 50 mls @ 100 mls/hr IV Q8HR [facility] Stop: 02/13/17 04:59 Last Infusion: 12/15/16 06:20 Dose: Infused Miscellaneous (Clinical Monitoring) 1 ea [facility] DAILY PRN PRN Reason: RENAL Stop: 02/12/17 11:19 Miscellaneous (Vancomycin Iv Per Pharmacy) 1 ea MC PRN [facility] Stop: 02/13/17 00:14 Morphine Sulfate (Morphine) 2 mg IVP Q6H PRN PRN Reason: Pain (Moderate) Stop: 02/12/17 00:34 Last Admin: 12/14/16 22:59 Dose: 2 mg Pantoprazole Sodium (Protonix) 40 mg PO DAILY [facility] Stop: 02/12/17 08:59 Last Admin: 12/14/16 12:00 Dose: 40 mg Pneumococcal Polyvalent Vaccine (Pneumovax) 0.5 ml IM .ONCE ONE Stop: 12/16/16 09:01 Propranolol HCl (Inderal) 20 mg PO TID [facility] Stop: 02/12/17 08:59 Last Admin: 12/14/16 21:04 Dose: Not Given Rifaximin (Xifaxan) 200 mg PO Q12H [facility] Stop: 02/12/17 08:59 Last Admin: 12/14/16 21:03 Dose: 200 mg Sevelamer Carbonate (Renvela) 800 mg PO TID [facility] Stop: 02/12/17 08:59 Last Admin: 12/14/16 21:03 Dose: 800 mg Tramadol HCl (Ultram) 50 mg PO Q8H [facility] Stop: 02/12/17 16:59 Last Admin: 12/15/16 01:30 Dose: 50 mg Vitamin B Complex/Vit C/Folic Acid (Vitamin B Complex W/Vitamin C) 1 tab PO DAILY [facility] Stop: 02/12/17 08:59 Last Admin: 12/14/16 11:59 Dose: 1 tab General: Alert, Oriented x3, Cooperative, No acute distress, Mild distress HEENT: Atraumatic, PERRLA, EOMI Neck: Supple Cardiovascular: Regular rate, Normal S1, Normal S2 Lungs: Clear to auscultation Abdomen: Bowel sounds, Soft Extremities: Other (left arm AVF with good bruit. Left thigh with vesicular erruption in dermatomal distribution) Skin: Other (sallow appearing) Assessment/Plan - Assessment Assessment: 1. ESRD: Stable. for dialysis tomorrow. 2. A FIB: Stable., Monitor 3. HTN: Controlled 4. Herpes Zoster (Shingles) left thigh: Stabael. On Acyclovir and Neurontin. ID COnsult pending 5. Dialysis Status: Stable. For dialysis tomorrow 6. BRADLEY with liver cirrhosis: Stable. Monitor Amonia as needed 7. Thrombocytopenia: Stable. No evidence of bleeding at this time. 8. Anemia: Stable. GIve EPOGEN as needed.
[2016-12-15 08:25] LABS: CHOLESTEROL 67 mg/dL (<200); TRIGLYCERIDES 146 mg/dL (<150)
[2016-12-15 09:35] LABS: BAND NEUTROPHILE 2 % (0-10); NEUTROPHILS 83 % (40-80); TOTAL CELLS COUNTED 100
[2016-12-15] MEDS: Pantoprazole 40 mg EC Tab PO SCH (09:38)
[2016-12-15] MEDS: Vitamin B Complex w/Vitamin C Tab PO SCH (09:38)
[2016-12-15] MEDS ORDERED: Probiotic Screen MC PRN (09:48)
[2016-12-15] MEDS: Sevelamer Carnonate 800 mg Tab PO SCH ×3 (09:51→21:28)
--- NOTE | 2016-12-15 12:40 | Diagnostic Imaging Report ---
Left humerus (2 views) HISTORY: Pain, swelling No focal bony lesions. No fractures. No radiographic evidence of osteomyelitis. Numerous surgical clips noted in the overlying soft tissues. Vascular stent seen in the left axillary area. There is suggestion of focal soft tissue swelling and calcification adjacent to the mid shaft humerus with questionable air collection. A CT scan would provide additional assessment and evaluation. IMPRESSION: 1. No focal bony abnormalities 2. Suggestion of focal soft tissue swelling and calcification adjacent to the mid shaft of the humerus. Questionable air collection. A CT scan is recommended for further assessment and evaluation.
--- NOTE | 2016-12-15 12:40 | Diagnostic Imaging Report ---
Left knee (2 views) HISTORY: Pain, swelling No acute bony abnormality is. No fractures. Mild medial joint space narrowing. Mild degenerative changes noted along the patella. Vascular calcification noted. IMPRESSION: 1. No acute bony abnormalities 2. Mild degenerative changes
--- NOTE | 2016-12-15 12:40 | Diagnostic Imaging Report ---
Left tibia/fibula HISTORY: Pain, swelling No acute bony abnormalities. No fractures. No radiographic evidence of osteomyelitis. No abnormal soft tissue calcifications. IMPRESSION: 1. No acute bony abnormalities
--- NOTE | 2016-12-15 12:41 | Cardiology ---
12/15/[address] Rod Domínguez. M-MODE ECHOCARDIOGRAM: Mitral valve, anterior leaflet of mitral valve shows normal excursion, EF velocity. Posterior leaflet of mitral valve shows normal excursion. Left ventricular posterior wall shows increased thickness, normal excursion. Interventricular septum showed normal thickness, decreased excursion, ejection fraction 50%. Left atrium enlarged 4.4 cm. Aortic root shows normal dimension, normal excursion of aortic leaflets. CONCLUSION: Hypertrophy of the left ventricle, ejection fraction 50%, left atrial enlargement. 2D ECHO: Long axis view showed normal sized left ventricle with hypertrophy of the left ventricle. Left atrium enlarged. Aortic root shows normal dimension, normal excursion of aortic leaflets. Short axis view of mitral valve normal. Short axis view of aortic valve normal. Apical four chamber view showed normal sized left ventricle with hypertrophy of the left ventricle. Left atrium enlarged. Right ventricular cavity, right atrium normal, no pericardial effusion. CONCLUSION: Hypertrophy of the left ventricle with left atrial enlargement, ejection fraction 50%. Doppler study shows prominent A wave consistent with poor compliance of left ventricle, trace mitral regurgitation, severe tricuspid regurgitation, right ventricular systolic pressure of 32 mmHg. JOB# [id number]
[2016-12-15] MEDS: Lactulose 10 Gm/15 mL 30mL UDC PO SCH (16:46)
--- NOTE | 2016-12-15 17:25 | Infectious Disease Prog Note ---
Infectious Disease Subjective - Review of Systems Service Date: 12/15/16 Subjective: patient has no new change, she has developed large blister with underlying necrosis. There is no fever. c/o tenderness in her left leg laterally. Infectious Disease Objective - Results Result Diagrams: 12/15/16 07:44 12/14/16 08:50 Recent Labs: Laboratory Last Values WBC 6.7 Th/cmm (4.8-10.8) 12/15/16 07:44 RBC 3.72 Mil/cmm (3.80-5.20) L 12/15/16 07:44 Hgb 12.7 gm/dL (11.7-16.1) 12/15/16 07:44 Hct 38.9 % (35.0-45.0) 12/15/16 07:44 MCV 104.6 fl (81-100) H 12/15/16 07:44 MCH 34.1 pg (27.0-31.0) H 12/15/16 07:44 MCHC Differential 32.6 pg (28.0-36.0) 12/15/16 07:44 RDW 18.2 % (11.5-20.0) 12/15/16 07:44 Plt Count 44 Th/cmm (150-400) L 12/15/16 07:44 MPV 10.3 fl 12/15/16 07:44 Neutrophils % TELEPHONE CLERKS SUPERVISOR 12/15/16 07:44 Band Neutrophils % 2 % (0-10) 12/15/16 07:44 Lymphocytes % TELEPHONE CLERKS SUPERVISOR 12/15/16 07:44 Monocytes % TELEPHONE CLERKS SUPERVISOR 12/15/16 07:44 Eosinophils % TELEPHONE CLERKS SUPERVISOR 12/15/16 07:44 Basophils % TELEPHONE CLERKS SUPERVISOR 12/15/16 07:44 Neutrophils (Manual) 83 % (40-80) H 12/15/16 07:44 Lymphocytes 10 % (20-50) L 12/15/16 07:44 Monocytes 5 % (2-10) 12/15/16 07:44 Eosinophils 0 % (0-5) 12/13/16 19:37 Basophils 0 % (0-3) 12/13/16 19:37 Platelet Estimate DECREASED PLATELETS (NORMAL) 12/14/16 08:50 Platelet Morphology NORMAL (NORMAL) 12/14/16 08:50 RBC Morph Micro Appear NORMAL (NORMAL) 12/13/16 19:37 PT 14.5 SECONDS (9.5-11.5) H 12/13/16 19:37 INR 1.37 (0.5-1.4) 12/13/16 19:37 PTT (Actin FS) 39.0 SECONDS (26.0-38.0) H 12/13/16 19:37 Sodium 135 mEq/L (136-145) L 12/14/16 08:50 Potassium 3.4 mEq/L (3.5-5.1) L 12/14/16 08:50 Chloride 95 mEq/L (98-107) L 12/14/16 08:50 Carbon Dioxide 27.6 mEq/L (21.0-31.0) 12/14/16 08:50 Anion Gap 15.8 (7.0-16.0) 12/14/16 08:50 BUN 45 mg/dL (7-25) H 12/14/16 08:50 Creatinine 5.8 mg/dL (0.6-1.2) H* 12/14/16 08:50 Est GFR ( Amer) TNP 12/14/16 08:50 Est GFR (Non-Af Amer) TNP 12/14/16 08:50 BUN/Creatinine Ratio 7.8 12/14/16 08:50 Glucose 157 mg/dL (70-105) H 12/14/16 08:50 Hemoglobin A1c % 5.1 % (4.0-6.0) 12/15/16 07:44 Calcium 8.9 mg/dL (8.6-10.3) 12/14/16 08:50 Total Bilirubin 2.0 mg/dL (0.3-1.0) H 12/14/16 08:50 AST 29 U/L (13-39) 12/14/16 08:50 ALT 14 U/L (7-52) 12/14/16 08:50 Alkaline Phosphatase 132 U/L (34-104) H 12/14/16 08:50 Ammonia 89 umol/L (16-53) H 12/15/16 07:44 Total Protein 5.4 gm/dL (6.0-8.3) L 12/14/16 08:50 Albumin 2.6 gm/dL (3.7-5.3) L 12/14/16 08:50 Globulin 2.8 gm/dL 12/14/16 08:50 Albumin/Globulin Ratio 0.9 (1.0-1.8) L 12/14/16 08:50 Triglycerides 146 mg/dL (<150) 12/15/16 07:44 Cholesterol 67 mg/dL (<200) 12/15/16 07:44 LDL Cholesterol Direct 18 mg/dL (75-193) L 12/15/16 07:44 HDL Cholesterol 7 mg/dL (23-92) L 12/15/16 07:44 TSH 1.39 uIU/ml (0.34-5.60) 12/15/16 07:44 - Physical Exam Vitals and I&O: Vital Signs Temp 97.5 F 12/15/16 16:52 Pulse 102 12/15/16 16:52 Resp 19 12/15/16 16:52 BP 90/54 12/15/16 16:52 Pulse Ox 96 12/15/16 16:52 Intake & Output 12/14/16 12/15/16 12/15/16 18:59 06:59 18:59 Intake Total 400 450 100 Output Total 2 Balance 400 448 100 Weight (lbs) 66.224 kg 66.224 kg Intake: Intake, IV Amount 450 100 Clindamycin 600mg/50mL 50 600 mg In 50 ml @ 100 mls /hr IV ONCE ONE Rx#: [id number] Clindamycin 600mg/50mL 50 50 600 mg In 50 ml @ 100 mls /hr IV Q8HR [facility] Rx#: [id number] Piperacillin Sodium/ 50 Tazobact 2.25 gm In Sodium Chloride 0.9% 50 ml @ 100 mls/hr IV ONCE ONE Rx#:[id number] Piperacillin Sodium/ 50 50 Tazobact 2.25 gm In Sodium Chloride 0.9% 50 ml @ 100 mls/hr IV Q8HR [facility] Rx#:[id number] Vancomycin HCl 1 gm In 250 Sodium Chloride 0.9% 250 ml @ 165 mls/hr IV ONCE ONE Rx#:[id number] Oral 400 Output: Urine 2 Other: # Bowel Movements 1 2 Stool Characteristics Soft Soft Active Medications: Current Medications Acyclovir (Zovirax) 400 mg PO DAILY [facility] Stop: 02/13/17 08:59 Last Admin: 12/15/16 11:07 Dose: 400 mg Amiodarone HCl (Cordarone) 200 mg PO BID [facility] Stop: 02/13/17 16:59 Last Admin: 12/15/16 16:46 Dose: 200 mg Calcitriol (Rocaltrol) 0.25 mcg PO DAILY [facility] Stop: 02/12/17 08:59 Last Admin: 12/15/16 09:38 Dose: 0.25 mcg Calcium Carbonate (Calcium Carb) 600 mg PO TID [facility] Stop: 02/12/17 08:59 Last Admin: 12/15/16 13:35 Dose: 600 mg Folic Acid (Folate) 1 mg PO DAILY [facility] Stop: 02/12/17 08:59 Last Admin: 12/15/16 09:38 Dose: 1 mg Gabapentin (Neurontin) 300 mg PO DAILY [facility] Stop: 02/12/17 08:59 Last Admin: 12/15/16 09:38 Dose: 300 mg Clindamycin Phosphate (Cleocin Pb) 600 mg in 50 mls @ 100 mls/hr IV Q8HR [facility] Stop: 02/13/17 04:59 Last Infusion: 12/15/16 12:32 Dose: Infused Piperacillin Sod/Tazobactam (Sod 2.25 gm/ Sodium Chloride) 50 mls @ 100 mls/hr IV Q8HR [facility] Stop: 02/13/17 04:59 Last Infusion: 12/15/16 12:32 Dose: Infused Lactobacillus Rhamnosus (Culturelle) 1 each PO DAILY [facility] Stop: 02/14/17 08:59 Lactulose (Cephulac) 15 gm PO DAILY [facility] Stop: 02/13/17 16:14 Last Admin: 12/15/16 16:46 Dose: 15 gm Miscellaneous (Clinical Monitoring) 1 ea DAILY PRN PRN Reason: RENAL Stop: 02/12/17 11:19 Miscellaneous (Vancomycin Iv Per Pharmacy) 1 ea PRN [facility] Stop: 02/13/17 00:14 Miscellaneous (Probiotic Screen) 1 ea PRN PRN PRN Reason: PROTOCOL Stop: 02/13/17 09:47 Morphine Sulfate (Morphine) 2 mg IVP Q6H PRN PRN Reason: Pain (Moderate) Stop: 02/12/17 00:34 Last Admin: 12/14/16 22:59 Dose: 2 mg Pantoprazole Sodium (Protonix) 40 mg PO DAILY [facility] Stop: 02/12/17 08:59 Last Admin: 12/15/16 09:38 Dose: 40 mg Pneumococcal Polyvalent Vaccine (Pneumovax) 0.5 ml IM .ONCE ONE Stop: 12/16/16 09:01 Propranolol HCl (Inderal) 20 mg PO TID [facility] Stop: 02/12/17 08:59 Last Admin: 12/15/16 13:36 Dose: Not Given Rifaximin (Xifaxan) 200 mg PO Q12H [facility] Stop: 02/12/17 08:59 Last Admin: 12/15/16 09:38 Dose: 200 mg Sevelamer Carbonate (Renvela) 800 mg PO TID [facility] Stop: 02/12/17 08:59 Last Admin: 12/15/16 13:36 Dose: 800 mg Tramadol HCl (Ultram) 50 mg PO Q8H [facility] Stop: 02/12/17 16:59 Last Admin: 12/15/16 16:50 Dose: 50 mg Vitamin B Complex/Vit C/Folic Acid (Vitamin B Complex W/Vitamin C) 1 tab PO DAILY [facility] Stop: 02/12/17 08:59 Last Admin: 12/15/16 09:38 Dose: 1 tab General: no acute distress, well developed, well nourished HEENT: atraumatic, normocephalic, PERRLA, EOMI Neck: supple, no thyromegaly Cardiovascular: S1S2, no regular Lungs: clear to auscultation bilaterally, clear to percussion Abdomen: soft, bowel sounds, no tender, no distended Extremities: no cyanosis, no clubbing, no edema Neurological: awake, alert, oriented, CN 2-12 intact Skin: other (left thigh and left leg ) Infectious Disease Assmt/Plan - Assessment Assessment: 1. Left leg cellulitis. suspect strep versus staph infection, suspect underlying necrosis. 2. ? shingles in thigh. 3. DM2. 4. CKD 5 on HD. - Plan Plan: Continue vanco iv, zosyn, clinda and acyclovir. surgical consult with dr Cordon. Arterial study. Nutritional Asmnt/Malnutr-PDOC - Dietary Evaluation Malnutrition Findings (Please click <Entered> for more info): Nutritional Asmnt/Malnutrition Start: 12/15/16 15: 13 Text: Status: Complete Freq: Document 12/15/16 15:13 [facility] (Rec: 12/15/16 15:28 [facility] SHOSHANA-[id number]) Nutritional Asmnt/Malnutrition Patient General Information Nutritional Screening High Risk Screening Diagnosis Left leg pain, rash suspicious of herpes zoster Pertinent Medical Hx/Surgical Hx CVA, TIA, ESRD on dialysis, DM Subjective Information Pt is a 71-year-old female admitted with chief complaint of pain to left side of hip. Pt was asleep and unarousable to sound. Pt appears overwt with loose skin. RD unable to complete full malnutrition- focused physical assessment. CHRISTINA Pierre reports that pt feeds self independently. Pt has no teeth but currently tolerating food; RN request for soft foods in case. RD discussed with Dr. Domínguez, texture change approved. Current Diet Order/ Nutrition Support Renal Patient / S.O Indicated Pertinent Medications Rocaltrol, Calcium Carb, Cleocin, Folate, Morphine, Protonix, Renevla, Vitamin B Complex Pertinent Labs (12/14) BUN 45H and Creatinine 5 .8H (increasing), Total Bilrubin 2H, Alkaline Phosphatase 132H, Albumin 2.6L , Ammonia 89H Nutritional Hx/Data Height 1.55 m Height (Calculated Centimeters) 154.9 Current Weight (lbs) 66.224 kg Weight (Calculated Kilograms) 66.2 Weight (Calculated Grams) 79317.5 [place] Body Weight 105 % [place] Body Weight 139 Weight Status Overweight GI Symptoms GI Symptoms None Last BM Difficult in: Chewing Food Allergies No Cultural/Ethnic/P[employer]ism Belief No preferences noted. Skin Integrity/Comment: Jf 17. No skin breakdown. Rash and bruises noted. Current %PO Good (75-100%) Estimated Nutritional Goals BEE in Kcals: Using Current wt Calories/Kcals/Kg Based on current wt 66.4 kg with consideration of dialysis Kcals Calculated 5119-7650 kcals/day (25-30 kcals/kg) Protein: Using Current wt Protein g/kg: Based on current wt 66.4 kg with consideration of dialysis Protein Calculated 80-93 gm/day (1.2-1.4 gm/kg) Fluid: ml Per MD/DO due to renal failure Nutritional Problem 1. Problem Problem Possible chewing difficulty related to Etiology complete edentulism as evidenced by Signs/Symptoms: RN reports. Malnutrition Alert Protein-Calorie Malnutrition N/A Is there a minimum of two criteria No selected? Query Text:Check all the applicable criteria. A minimum of two criteria are recommended for diagnosis of either severe or non-severe malnutrition. Malnutrition Related to Morbid Obesity Malnutrition related to morbid obesity No Intervention/Recommendation Comments 1. Recommend mechanical soft chopped, 90-gram renal diet to better meet estimated nutritional needs. Expected Outcomes/Goals Expected Outcomes/Goals Have pt meet at least 75% of estimated nutritional needs with acceptable tolerance. Physician Parameters for PEM Serum Albumin (g/dl) 2.4 - 3.0 (Moderate)
--- NOTE | 2016-12-15 17:30 | Infectious Disease Prog Note ---
Infectious Disease Subjective - Review of Systems Service Date: 12/15/16 Subjective: patient has no new change, she has developed large blister with underlying necrosis. There is no fever. c/o tenderness in her left leg laterally. Infectious Disease Objective - Results Result Diagrams: 12/15/16 07:44 12/14/16 08:50 Recent Labs: Laboratory Last Values WBC 6.7 Th/cmm (4.8-10.8) 12/15/16 07:44 RBC 3.72 Mil/cmm (3.80-5.20) L 12/15/16 07:44 Hgb 12.7 gm/dL (11.7-16.1) 12/15/16 07:44 Hct 38.9 % (35.0-45.0) 12/15/16 07:44 MCV 104.6 fl (81-100) H 12/15/16 07:44 MCH 34.1 pg (27.0-31.0) H 12/15/16 07:44 MCHC Differential 32.6 pg (28.0-36.0) 12/15/16 07:44 RDW 18.2 % (11.5-20.0) 12/15/16 07:44 Plt Count 44 Th/cmm (150-400) L 12/15/16 07:44 MPV 10.3 fl 12/15/16 07:44 Neutrophils % SUPERVISOR WHIPPED TOPPING 12/15/16 07:44 Band Neutrophils % 2 % (0-10) 12/15/16 07:44 Lymphocytes % SUPERVISOR WHIPPED TOPPING 12/15/16 07:44 Monocytes % SUPERVISOR WHIPPED TOPPING 12/15/16 07:44 Eosinophils % SUPERVISOR WHIPPED TOPPING 12/15/16 07:44 Basophils % SUPERVISOR WHIPPED TOPPING 12/15/16 07:44 Neutrophils (Manual) 83 % (40-80) H 12/15/16 07:44 Lymphocytes 10 % (20-50) L 12/15/16 07:44 Monocytes 5 % (2-10) 12/15/16 07:44 Eosinophils 0 % (0-5) 12/13/16 19:37 Basophils 0 % (0-3) 12/13/16 19:37 Platelet Estimate DECREASED PLATELETS (NORMAL) 12/14/16 08:50 Platelet Morphology NORMAL (NORMAL) 12/14/16 08:50 RBC Morph Micro Appear NORMAL (NORMAL) 12/13/16 19:37 PT 14.5 SECONDS (9.5-11.5) H 12/13/16 19:37 INR 1.37 (0.5-1.4) 12/13/16 19:37 PTT (Actin FS) 39.0 SECONDS (26.0-38.0) H 12/13/16 19:37 Sodium 135 mEq/L (136-145) L 12/14/16 08:50 Potassium 3.4 mEq/L (3.5-5.1) L 12/14/16 08:50 Chloride 95 mEq/L (98-107) L 12/14/16 08:50 Carbon Dioxide 27.6 mEq/L (21.0-31.0) 12/14/16 08:50 Anion Gap 15.8 (7.0-16.0) 12/14/16 08:50 BUN 45 mg/dL (7-25) H 12/14/16 08:50 Creatinine 5.8 mg/dL (0.6-1.2) H* 12/14/16 08:50 Est GFR ( Amer) TNP 12/14/16 08:50 Est GFR (Non-Af Amer) TNP 12/14/16 08:50 BUN/Creatinine Ratio 7.8 12/14/16 08:50 Glucose 157 mg/dL (70-105) H 12/14/16 08:50 Hemoglobin A1c % 5.1 % (4.0-6.0) 12/15/16 07:44 Calcium 8.9 mg/dL (8.6-10.3) 12/14/16 08:50 Total Bilirubin 2.0 mg/dL (0.3-1.0) H 12/14/16 08:50 AST 29 U/L (13-39) 12/14/16 08:50 ALT 14 U/L (7-52) 12/14/16 08:50 Alkaline Phosphatase 132 U/L (34-104) H 12/14/16 08:50 Ammonia 89 umol/L (16-53) H 12/15/16 07:44 Total Protein 5.4 gm/dL (6.0-8.3) L 12/14/16 08:50 Albumin 2.6 gm/dL (3.7-5.3) L 12/14/16 08:50 Globulin 2.8 gm/dL 12/14/16 08:50 Albumin/Globulin Ratio 0.9 (1.0-1.8) L 12/14/16 08:50 Triglycerides 146 mg/dL (<150) 12/15/16 07:44 Cholesterol 67 mg/dL (<200) 12/15/16 07:44 LDL Cholesterol Direct 18 mg/dL (75-193) L 12/15/16 07:44 HDL Cholesterol 7 mg/dL (23-92) L 12/15/16 07:44 TSH 1.39 uIU/ml (0.34-5.60) 12/15/16 07:44 - Physical Exam Vitals and I&O: Vital Signs Temp 97.5 F 12/15/16 16:52 Pulse 102 12/15/16 16:52 Resp 19 12/15/16 16:52 BP 90/54 12/15/16 16:52 Pulse Ox 96 12/15/16 16:52 Intake & Output 12/14/16 12/15/16 12/15/16 18:59 06:59 18:59 Intake Total 400 450 100 Output Total 2 Balance 400 448 100 Weight (lbs) 66.224 kg 66.224 kg Intake: Intake, IV Amount 450 100 Clindamycin 600mg/50mL 50 600 mg In 50 ml @ 100 mls /hr IV ONCE ONE Rx#: [id number] Clindamycin 600mg/50mL 50 50 600 mg In 50 ml @ 100 mls /hr IV Q8HR [facility] Rx#: [id number] Piperacillin Sodium/ 50 Tazobact 2.25 gm In Sodium Chloride 0.9% 50 ml @ 100 mls/hr IV ONCE ONE Rx#:[id number] Piperacillin Sodium/ 50 50 Tazobact 2.25 gm In Sodium Chloride 0.9% 50 ml @ 100 mls/hr IV Q8HR [facility] Rx#:[id number] Vancomycin HCl 1 gm In 250 Sodium Chloride 0.9% 250 ml @ 165 mls/hr IV ONCE ONE Rx#:[id number] Oral 400 Output: Urine 2 Other: # Bowel Movements 1 2 Stool Characteristics Soft Soft Active Medications: Current Medications Acyclovir (Zovirax) 400 mg PO DAILY [facility] Stop: 02/13/17 08:59 Last Admin: 12/15/16 11:07 Dose: 400 mg Amiodarone HCl (Cordarone) 200 mg PO BID [facility] Stop: 02/13/17 16:59 Last Admin: 12/15/16 16:46 Dose: 200 mg Calcitriol (Rocaltrol) 0.25 mcg PO DAILY [facility] Stop: 02/12/17 08:59 Last Admin: 12/15/16 09:38 Dose: 0.25 mcg Calcium Carbonate (Calcium Carb) 600 mg PO TID [facility] Stop: 02/12/17 08:59 Last Admin: 12/15/16 13:35 Dose: 600 mg Folic Acid (Folate) 1 mg PO DAILY [facility] Stop: 02/12/17 08:59 Last Admin: 12/15/16 09:38 Dose: 1 mg Gabapentin (Neurontin) 300 mg PO DAILY [facility] Stop: 02/12/17 08:59 Last Admin: 12/15/16 09:38 Dose: 300 mg Clindamycin Phosphate (Cleocin Pb) 600 mg in 50 mls @ 100 mls/hr IV Q8HR [facility] Stop: 02/13/17 04:59 Last Infusion: 12/15/16 12:32 Dose: Infused Piperacillin Sod/Tazobactam (Sod 2.25 gm/ Sodium Chloride) 50 mls @ 100 mls/hr IV Q8HR [facility] Stop: 02/13/17 04:59 Last Infusion: 12/15/16 12:32 Dose: Infused Lactobacillus Rhamnosus (Culturelle) 1 each PO DAILY [facility] Stop: 02/14/17 08:59 Lactulose (Cephulac) 15 gm PO DAILY [facility] Stop: 02/13/17 16:14 Last Admin: 12/15/16 16:46 Dose: 15 gm Miscellaneous (Clinical Monitoring) 1 ea DAILY PRN PRN Reason: RENAL Stop: 02/12/17 11:19 Miscellaneous (Vancomycin Iv Per Pharmacy) 1 ea PRN [facility] Stop: 02/13/17 00:14 Miscellaneous (Probiotic Screen) 1 ea PRN PRN PRN Reason: PROTOCOL Stop: 02/13/17 09:47 Morphine Sulfate (Morphine) 2 mg IVP Q6H PRN PRN Reason: Pain (Moderate) Stop: 02/12/17 00:34 Last Admin: 12/14/16 22:59 Dose: 2 mg Pantoprazole Sodium (Protonix) 40 mg PO DAILY [facility] Stop: 02/12/17 08:59 Last Admin: 12/15/16 09:38 Dose: 40 mg Pneumococcal Polyvalent Vaccine (Pneumovax) 0.5 ml IM .ONCE ONE Stop: 12/16/16 09:01 Propranolol HCl (Inderal) 20 mg PO TID [facility] Stop: 02/12/17 08:59 Last Admin: 12/15/16 13:36 Dose: Not Given Rifaximin (Xifaxan) 200 mg PO Q12H [facility] Stop: 02/12/17 08:59 Last Admin: 12/15/16 09:38 Dose: 200 mg Sevelamer Carbonate (Renvela) 800 mg PO TID [facility] Stop: 02/12/17 08:59 Last Admin: 12/15/16 13:36 Dose: 800 mg Tramadol HCl (Ultram) 50 mg PO Q8H [facility] Stop: 02/12/17 16:59 Last Admin: 12/15/16 16:50 Dose: 50 mg Vitamin B Complex/Vit C/Folic Acid (Vitamin B Complex W/Vitamin C) 1 tab PO DAILY [facility] Stop: 02/12/17 08:59 Last Admin: 12/15/16 09:38 Dose: 1 tab General: no acute distress, well developed, well nourished HEENT: atraumatic, normocephalic, PERRLA Neck: supple, no thyromegaly Cardiovascular: S1S2, regular Lungs: clear to auscultation bilaterally, clear to percussion Abdomen: soft, bowel sounds, no tender, no distended Extremities: edema, other (large blister in lateral aspect of left leg with darkening of the skin underneath. Left thigh blister with wurrounding erythema.) , no cyanosis, no clubbing Neurological: awake, alert, oriented Infectious Disease Assmt/Plan - Assessment Assessment: 1. Left leg cellulitis. suspect strep versus staph infection, suspect underlying necrosis. 2. ? shingles in thigh. 3. DM2. 4. CKD 5 on HD. - Plan Plan: Continue vanco iv, zosyn, clinda and acyclovir. surgical consult with dr Cordon. Arterial study. Nutritional Asmnt/Malnutr-PDOC - Dietary Evaluation Malnutrition Findings (Please click <Entered> for more info): Nutritional Asmnt/Malnutrition Start: 12/15/16 15: 13 Text: Status: Complete Freq: Document 12/15/16 15:13 [facility] (Rec: 12/15/16 15:28 [facility] [id number]) Nutritional Asmnt/Malnutrition Patient General Information Nutritional Screening High Risk Screening Diagnosis Left leg pain, rash suspicious of herpes zoster Pertinent Medical Hx/Surgical Hx CVA, TIA, ESRD on dialysis, DM Subjective Information Pt is a 71-year-old female admitted with chief complaint of pain to left side of hip. Pt was asleep and unarousable to sound. Pt appears overwt with loose skin. RD unable to complete full malnutrition- focused physical assessment. CHRISTINA Pierre reports that pt feeds self independently. Pt has no teeth but currently tolerating food; RN request for soft foods in case. RD discussed with Dr. Domínguez, texture change approved. Current Diet Order/ Nutrition Support Renal Patient / S.O Indicated Pertinent Medications Rocaltrol, Calcium Carb, Cleocin, Folate, Morphine, Protonix, Renevla, Vitamin B Complex Pertinent Labs (12/14) BUN 45H and Creatinine 5 .8H (increasing), Total Bilrubin 2H, Alkaline Phosphatase 132H, Albumin 2.6L , Ammonia 89H Nutritional Hx/Data Height 1.55 m Height (Calculated Centimeters) 154.9 Current Weight (lbs) 66.224 kg Weight (Calculated Kilograms) 66.2 Weight (Calculated Grams) 09166.5 [place] Body Weight 105 % [place] Body Weight 139 Weight Status Overweight GI Symptoms GI Symptoms None Last BM Difficult in: Chewing Food Allergies No Cultural/Ethnic/Spiritism Belief No preferences noted. Skin Integrity/Comment: Jf 17. No skin breakdown. Rash and bruises noted. Current %PO Good (75-100%) Estimated Nutritional Goals BEE in Kcals: Using Current wt Calories/Kcals/Kg Based on current wt 66.4 kg with consideration of dialysis Kcals Calculated 5187-6615 kcals/day (25-30 kcals/kg) Protein: Using Current wt Protein g/kg: Based on current wt 66.4 kg with consideration of dialysis Protein Calculated 80-93 gm/day (1.2-1.4 gm/kg) Fluid: ml Per MD/DO due to renal failure Nutritional Problem 1. Problem Problem Possible chewing difficulty related to Etiology complete edentulism as evidenced by Signs/Symptoms: RN reports. Malnutrition Alert Protein-Calorie Malnutrition N/A Is there a minimum of two criteria No selected? Query Text:Check all the applicable criteria. A minimum of two criteria are recommended for diagnosis of either severe or non-severe malnutrition. Malnutrition Related to Morbid Obesity Malnutrition related to morbid obesity No Intervention/Recommendation Comments 1. Recommend mechanical soft chopped, 90-gram renal diet to better meet estimated nutritional needs. Expected Outcomes/Goals Expected Outcomes/Goals Have pt meet at least 75% of estimated nutritional needs with acceptable tolerance. Physician Parameters for PEM Serum Albumin (g/dl) 2.4 - 3.0 (Moderate)
[2016-12-16] MEDS: Piperacillin/Tazobact 2.25 gm in 0.9% NS 50 ML IV SCH ×4 (01:16→21:34)
--- NOTE | 2016-12-16 03:17 | Admit Criteria Form ---
Admit Criteria Forms - Admit Criteria Diagnosis: PAIN MANAGEMENT GR Clinical Indications for Admission to Inpatient Care (Place 'X' for any and all applicable criteria): Hospital admission is needed for appropriate care of the patient because of 1 or more of the following are present (1)(2)(3)(4)(5): [X ]I. Severe pain requiring acute inpatient management as indicated by 1 or more of the following (2)(5)(10): [X ]a) Continuous or frequent (eg, every 2 to 4 hours) parenteral analgesics required [A] [ ]b) Necessity (ie, alternative approaches not effective) for analgesic regimen that can only be performed or initiated in inpatient setting [ ]II. Pain causing debilitation to the point of inability to function or be supported at any other level of care [ ]III. Severe side effects from pain medications as indicated by ANY ONE of the following (12)(13)(14)(15): [ ]a) Uncontrollable seizures [ ]b) Cardiac arrhythmias of immediate concern [ ]c) Dehydration that is severe or persistent [ ]d) Vomiting that is severe or persistent [ ]e) Altered mental status that is severe or persistent [ ]f) Obstipation with inadequate GI function to maintain nutrition The original [employer] content created by [employer] has been revised. The portions of the content which have been revised are identified through the use of italic text or in bold, and [facility] has neither reviewed nor approved the modified material. All other unmodified content is copyright [employer]. Please see references footnoted in the original [facility] edition 2016 Admit Criteria Met?: Yes
[2016-12-16 06:28] LABS: HEMATOCRIT 34.8 % (35.0-45.0); HEMOGLOBIN 11.8 gm/dL (11.7-16.1); MEAN CELL VOLUME 101.9 fl (81-100); MEAN CORPUSCULAR HEMOGLOBIN 34.5 pg (27.0-31.0); MEAN CORPUSCULAR HGB CONC 33.9 pg (28.0-36.0); MEAN PLATELET VOLUME 10.1 fl; RED BLOOD COUNT 3.41 Mil/cmm (3.80-5.20); RED CELL DISTRIBUTION WIDTH 17.8 % (11.5-20.0); WHITE BLOOD COUNT 8.7 Th/cmm (4.8-10.8)
--- NOTE | 2016-12-16 07:46 | General Progress Note ---
Subjective - Review of Systems Service Date: 12/16/16 Subjective: Awake,Alert,afebrile. no acute distress. Complains of left hip pain. Left Hip Xray negative for fractures. Patient states pain is better. resting in bed. blisters present to the left hip with evidence of necrosis. Surgical consult today with Dr. Cordon. Objective - Results Result Diagrams: 12/16/16 05:55 12/14/16 08:50 Recent Labs: Laboratory Last Values WBC 8.7 Th/cmm (4.8-10.8) D 12/16/16 05:55 RBC 3.41 Mil/cmm (3.80-5.20) L 12/16/16 05:55 Hgb 11.8 gm/dL (11.7-16.1) 12/16/16 05:55 Hct 34.8 % (35.0-45.0) L D 12/16/16 05:55 MCV 101.9 fl (81-100) H 12/16/16 05:55 MCH 34.5 pg (27.0-31.0) H 12/16/16 05:55 MCHC Differential 33.9 pg (28.0-36.0) 12/16/16 05:55 RDW 17.8 % (11.5-20.0) 12/16/16 05:55 Plt Count 48 Th/cmm (150-400) L 12/16/16 05:55 MPV 10.1 fl 12/16/16 05:55 Neutrophils % 80.8 % (40.0-80.0) H 12/16/16 05:55 Band Neutrophils % 2 % (0-10) 12/15/16 07:44 Lymphocytes % 9.6 % (20.0-50.0) L 12/16/16 05:55 Monocytes % 9.3 % (2.0-10.0) 12/16/16 05:55 Eosinophils % 0.3 % (0.0-5.0) 12/16/16 05:55 Basophils % 0.0 % (0.0-2.0) 12/16/16 05:55 Neutrophils (Manual) 83 % (40-80) H 12/15/16 07:44 Lymphocytes 10 % (20-50) L 12/15/16 07:44 Monocytes 5 % (2-10) 12/15/16 07:44 Eosinophils 0 % (0-5) 12/13/16 19:37 Basophils 0 % (0-3) 12/13/16 19:37 Platelet Estimate DECREASED PLATELETS (NORMAL) 12/14/16 08:50 Platelet Morphology NORMAL (NORMAL) 12/14/16 08:50 RBC Morph Micro Appear NORMAL (NORMAL) 12/13/16 19:37 PT 14.5 SECONDS (9.5-11.5) H 12/13/16 19:37 INR 1.37 (0.5-1.4) 12/13/16 19:37 PTT (Actin FS) 39.0 SECONDS (26.0-38.0) H 12/13/16 19:37 Sodium 135 mEq/L (136-145) L 12/14/16 08:50 Potassium 3.4 mEq/L (3.5-5.1) L 12/14/16 08:50 Chloride 95 mEq/L (98-107) L 12/14/16 08:50 Carbon Dioxide 27.6 mEq/L (21.0-31.0) 12/14/16 08:50 Anion Gap 15.8 (7.0-16.0) 12/14/16 08:50 BUN 45 mg/dL (7-25) H 12/14/16 08:50 Creatinine 5.8 mg/dL (0.6-1.2) H* 12/14/16 08:50 Est GFR ( Amer) TNP 12/14/16 08:50 Est GFR (Non-Af Amer) TNP 12/14/16 08:50 BUN/Creatinine Ratio 7.8 12/14/16 08:50 Glucose 157 mg/dL (70-105) H 12/14/16 08:50 Hemoglobin A1c % 5.1 % (4.0-6.0) 12/15/16 07:44 Calcium 8.9 mg/dL (8.6-10.3) 12/14/16 08:50 Total Bilirubin 2.0 mg/dL (0.3-1.0) H 12/14/16 08:50 AST 29 U/L (13-39) 12/14/16 08:50 ALT 14 U/L (7-52) 12/14/16 08:50 Alkaline Phosphatase 132 U/L (34-104) H 12/14/16 08:50 Ammonia 39 umol/L (16-53) 12/16/16 05:55 Total Protein 5.4 gm/dL (6.0-8.3) L 12/14/16 08:50 Albumin 2.6 gm/dL (3.7-5.3) L 12/14/16 08:50 Globulin 2.8 gm/dL 12/14/16 08:50 Albumin/Globulin Ratio 0.9 (1.0-1.8) L 12/14/16 08:50 Triglycerides 146 mg/dL (<150) 12/15/16 07:44 Cholesterol 67 mg/dL (<200) 12/15/16 07:44 LDL Cholesterol Direct 18 mg/dL (75-193) L 12/15/16 07:44 HDL Cholesterol 7 mg/dL (23-92) L 12/15/16 07:44 TSH 1.39 uIU/ml (0.34-5.60) 12/15/16 07:44 Random Vancomycin 10.3 ug/mL (5.0-40.0) 12/16/16 05:55 - Physical Exam Vitals and I&O: Vital Signs Temp 96.9 F 12/16/16 04:00 Pulse 88 12/16/16 04:00 Resp 18 12/16/16 04:00 BP 144/83 12/16/16 04:00 Pulse Ox 95 12/16/16 04:00 Intake & Output 12/15/16 12/16/16 12/16/16 18:59 06:59 18:59 Intake Total 100 350 Balance 100 350 Weight (lbs) 83.37 kg Intake: Intake, IV Amount 100 150 Clindamycin 600mg/50mL 50 100 600 mg In 50 ml @ 100 mls /hr IV Q8HR [facility] Rx#: [id number] Piperacillin Sodium/ 50 50 Tazobact 2.25 gm In Sodium Chloride 0.9% 50 ml @ 100 mls/hr IV Q8HR [facility] Rx#:[id number] Oral 200 Other: # Voids 1 # Bowel Movements 1 Stool Characteristics Soft Soft Active Medications: Current Medications Acyclovir (Zovirax) 400 mg PO DAILY [facility] Stop: 02/13/17 08:59 Last Admin: 12/15/16 11:07 Dose: 400 mg Amiodarone HCl (Cordarone) 200 mg PO BID [facility] Stop: 02/13/17 16:59 Last Admin: 12/15/16 16:46 Dose: 200 mg Calcitriol (Rocaltrol) 0.25 mcg PO DAILY [facility] Stop: 02/12/17 08:59 Last Admin: 12/15/16 09:38 Dose: 0.25 mcg Calcium Carbonate (Calcium Carb) 600 mg PO TID [facility] Stop: 02/12/17 08:59 Last Admin: 12/15/16 21:23 Dose: 600 mg Folic Acid (Folate) 1 mg PO DAILY [facility] Stop: 02/12/17 08:59 Last Admin: 12/15/16 09:38 Dose: 1 mg Gabapentin (Neurontin) 300 mg PO DAILY [facility] Stop: 02/12/17 08:59 Last Admin: 12/15/16 09:38 Dose: 300 mg Clindamycin Phosphate (Cleocin Pb) 600 mg in 50 mls @ 100 mls/hr IV Q8HR [facility] Stop: 02/13/17 04:59 Last Infusion: 12/16/16 05:42 Dose: Infused Piperacillin Sod/Tazobactam (Sod 2.25 gm/ Sodium Chloride) 50 mls @ 100 mls/hr IV Q8HR [facility] Stop: 02/13/17 04:59 Last Admin: 12/16/16 05:42 Dose: 100 mls/hr Lactobacillus Rhamnosus (Culturelle) 1 each PO DAILY [facility] Stop: 02/14/17 08:59 Lactulose (Cephulac) 15 gm PO DAILY [facility] Stop: 02/13/17 16:14 Last Admin: 12/15/16 16:46 Dose: 15 gm Miscellaneous (Clinical Monitoring) 1 ea [facility] DAILY PRN PRN Reason: RENAL Stop: 02/12/17 11:19 Miscellaneous (Vancomycin Iv Per Pharmacy) 1 ea MC PRN [facility] Stop: 02/13/17 00:14 Miscellaneous (Probiotic Screen) 1 ea PRN PRN PRN Reason: PROTOCOL Stop: 02/13/17 09:47 Morphine Sulfate (Morphine) 2 mg IVP Q6H PRN PRN Reason: Pain (Moderate) Stop: 02/12/17 00:34 Last Admin: 12/14/16 22:59 Dose: 2 mg Pantoprazole Sodium (Protonix) 40 mg PO DAILY [facility] Stop: 02/12/17 08:59 Last Admin: 12/15/16 09:38 Dose: 40 mg Pneumococcal Polyvalent Vaccine (Pneumovax) 0.5 ml IM .ONCE ONE Stop: 12/16/16 09:01 Propranolol HCl (Inderal) 20 mg PO TID [facility] Stop: 02/12/17 08:59 Last Admin: 12/15/16 21:24 Dose: Not Given Rifaximin (Xifaxan) 200 mg PO Q12H [facility] Stop: 02/12/17 08:59 Last Admin: 12/15/16 21:24 Dose: 200 mg Sevelamer Carbonate (Renvela) 800 mg PO TID [facility] Stop: 02/12/17 08:59 Last Admin: 12/15/16 21:28 Dose: 800 mg Tramadol HCl (Ultram) 50 mg PO Q8H [facility] Stop: 02/12/17 16:59 Last Admin: 12/16/16 01:17 Dose: 50 mg Vitamin B Complex/Vit C/Folic Acid (Vitamin B Complex W/Vitamin C) 1 tab PO DAILY [facility] Stop: 02/12/17 08:59 Last Admin: 12/15/16 09:38 Dose: 1 tab General: Alert, Oriented x3, No acute distress HEENT: Atraumatic, PERRLA, EOMI Neck: Supple Cardiovascular: Regular rate, Normal S1, Normal S2 Lungs: Clear to auscultation Abdomen: Bowel sounds Extremities: Edema, no Clubbing, no Cyanosis Skin: Rash (vesicular rash present to the left hip cellulitis) Assessment/Plan - Problem List Patient Problems: All Active Problems Anemia (Acute) D64.9 Cellulitis (Acute) L03.90 Chronic atrial fibrillation (Acute) I48.2 Diabetes mellitus (Acute) E11.9 ESRD (end stage renal disease) on dialysis (Acute) N18.6, Z99.2 Herpes zoster (Acute) B02.9 Left hip pain (Acute) M25.552 BRADLEY (nonalcoholic steatohepatitis) (Acute) K75.81 Peripheral vascular disease (Acute) I73.9 Thrombocytopenia (Acute) D69.6 - Assessment Assessment: left leg pain cellulitis herpes zoster End Stage Renal Disease on HD Diabetes Mellitus Chronic Atrial Fibrillation Thrombocytopenia Anemia PVD BRADLEY - Plan Plan: left leg pain rash suspicious of herpes zoster ... will order acyclovir PO and gabapentin PO ESRD on HD .. renal consult dialysis per renal DM CVA/TIA hypokalemia ... will repeat K+ chronic atrial fibrillation ... will order cardiology consult. ECHO to be read by Cardiology. Nutritional Asmnt/Malnutr-PDOC - Dietary Evaluation Malnutrition Findings (Please click <Entered> for more info): Nutritional Asmnt/Malnutrition Start: 12/15/16 15: 13 Text: Status: Complete Freq: Document 12/15/16 15:13 [facility] (Rec: 12/15/16 15:28 [facility] [id number]) Nutritional Asmnt/Malnutrition Patient General Information Nutritional Screening High Risk Screening Diagnosis Left leg pain, rash suspicious of herpes zoster Pertinent Medical Hx/Surgical Hx CVA, TIA, ESRD on dialysis, DM Subjective Information Pt is a 71-year-old female admitted with chief complaint of pain to left side of hip. Pt was asleep and unarousable to sound. Pt appears overwt with loose skin. RD unable to complete full malnutrition- focused physical assessment. CHRISTINA Pierre reports that pt feeds self independently. Pt has no teeth but currently tolerating food; RN request for soft foods in case. RD discussed with Dr. Domínguez, texture change approved. Current Diet Order/ Nutrition Support Renal Patient / S.O Indicated Pertinent Medications Rocaltrol, Calcium Carb, Cleocin, Folate, Morphine, Protonix, Renevla, Vitamin B Complex Pertinent Labs (12/14) BUN 45H and Creatinine 5 .8H (increasing), Total Bilrubin 2H, Alkaline Phosphatase 132H, Albumin 2.6L , Ammonia 89H Nutritional Hx/Data Height 1.55 m Height (Calculated Centimeters) 154.9 Current Weight (lbs) 66.224 kg Weight (Calculated Kilograms) 66.2 Weight (Calculated Grams) 85444.5 [place] Body Weight 105 % [place] Body Weight 139 Weight Status Overweight GI Symptoms GI Symptoms None Last BM Difficult in: Chewing Food Allergies No Cultural/Ethnic/Voodoo Belief No preferences noted. Skin Integrity/Comment: Jf 17. No skin breakdown. Rash and bruises noted. Current %PO Good (75-100%) Estimated Nutritional Goals BEE in Kcals: Using Current wt Calories/Kcals/Kg Based on current wt 66.4 kg with consideration of dialysis Kcals Calculated 4041-7565 kcals/day (25-30 kcals/kg) Protein: Using Current wt Protein g/kg: Based on current wt 66.4 kg with consideration of dialysis Protein Calculated 80-93 gm/day (1.2-1.4 gm/kg) Fluid: ml Per MD/DO due to renal failure Nutritional Problem 1. Problem Problem Possible chewing difficulty related to Etiology complete edentulism as evidenced by Signs/Symptoms: RN reports. Malnutrition Alert Protein-Calorie Malnutrition N/A Is there a minimum of two criteria No selected? Query Text:Check all the applicable criteria. A minimum of two criteria are recommended for diagnosis of either severe or non-severe malnutrition. Malnutrition Related to Morbid Obesity Malnutrition related to morbid obesity No Intervention/Recommendation Comments 1. Recommend mechanical soft chopped, 90-gram renal diet to better meet estimated nutritional needs. Expected Outcomes/Goals Expected Outcomes/Goals Have pt meet at least 75% of estimated nutritional needs with acceptable tolerance. Physician Parameters for PEM Serum Albumin (g/dl) 2.4 - 3.0 (Moderate)
[2016-12-16 07:57] LABS: PLATELET COUNT 48 Th/cmm (150-400)
[2016-12-16 07:59] LABS: BAND NEUTROPHILE 4 % (0-10); NEUTROPHILS 80 % (40-80); TOTAL CELLS COUNTED 100
[2016-12-16 08:00] LABS: PLATELET ESTIMATE SLIGHT DECREASED (NORMAL)
[2016-12-16] MEDS ORDERED: Lactulose 10 Gm/15 mL 30mL UDC PO SCH (09:00)
[2016-12-16] MEDS ORDERED: Pneumococcal Vaccine 0.5 mL Vial IM ONE (09:00)
[2016-12-16] MEDS: Lactulose 10 Gm/15 mL 30mL UDC PO SCH (09:12)
[2016-12-16] MEDS: Sevelamer Carnonate 800 mg Tab PO SCH ×3 (09:12→21:33)
[2016-12-16] MEDS: Pantoprazole 40 mg EC Tab PO SCH (09:13)
[2016-12-16] MEDS: Vitamin B Complex w/Vitamin C Tab PO SCH (09:13)
[2016-12-16] MEDS: Lactobacillus Rhamnosus 10 Billion CFU Capsule PO SCH (09:17)
[2016-12-16] MEDS ORDERED: Albumin 25% 25gm/100mL 25 GM/100 ML BTL IV ONE ×2 (12:47→13:09)
[2016-12-16] MEDS ORDERED: Albumin 5% 12.5gm/250mL 12.5 GM/250 ML BTL IV ONE ×2 (14:02→14:15)
--- NOTE | 2016-12-16 17:43 | Consultation ---
DATE OF CONSULTATION: 12/16/2016 REFERRING PHYSICIAN: Dr. Domínguez. REASON FOR CONSULTATION: Superficial skin necrosis and blisters on lateral aspect of the left lower extremity. Thank you for referring this patient to me. HISTORY OF PRESENT ILLNESS: This is a 71-year-old female who complained of pain with no antecedent episode few days before admission, which would be about a week ago. The patient claims that prior to this, she has been able to ambulate with a walker. She is on dialysis for end-stage renal disease. PAST HISTORY: Includes CVA and TIA. She has diabetes as well. LABORATORY STUDIES: On this admission, the WBC is normal, hemoglobin is also normal. Bands, however, is elevated to 12%. Chemistry: BUN is 40 with creatinine of 5.2. The x-rays of the left knee, tibia and fibula, humerus and hip does not show any acute fracture. The patient has been seen by Infectious Disease dairy nutrition consultant who feels that the blisters and the underlying necrosis of the lateral aspect of the left leg could likely be secondary to shingles or staph infection. RECOMMENDATIONS: I agree with the recommendation so far. However, there is a chance these changes can lead to superficial skin ulcerations and gangrene, which might be necessary to debride. We will follow with you. [facility]# [id number]
--- NOTE | 2016-12-16 19:25 | Infectious Disease Prog Note ---
Infectious Disease Subjective - Review of Systems Service Date: 12/16/16 Subjective: patient has no new change, she has same large blister with underlying necrosis. There is no fever. c/o tenderness in her left leg laterally. Infectious Disease Objective - Results Result Diagrams: 12/16/16 05:55 12/14/16 08:50 Recent Labs: Laboratory Last Values WBC 8.7 Th/cmm (4.8-10.8) D 12/16/16 05:55 RBC 3.41 Mil/cmm (3.80-5.20) L 12/16/16 05:55 Hgb 11.8 gm/dL (11.7-16.1) 12/16/16 05:55 Hct 34.8 % (35.0-45.0) L D 12/16/16 05:55 MCV 101.9 fl (81-100) H 12/16/16 05:55 MCH 34.5 pg (27.0-31.0) H 12/16/16 05:55 MCHC Differential 33.9 pg (28.0-36.0) 12/16/16 05:55 RDW 17.8 % (11.5-20.0) 12/16/16 05:55 Plt Count 48 Th/cmm (150-400) L 12/16/16 05:55 MPV 10.1 fl 12/16/16 05:55 Neutrophils % CASTING MACHINE SET UP OPERATOR 12/16/16 05:55 Band Neutrophils % 4 % (0-10) 12/16/16 05:55 Lymphocytes % CASTING MACHINE SET UP OPERATOR 12/16/16 05:55 Monocytes % CASTING MACHINE SET UP OPERATOR 12/16/16 05:55 Eosinophils % CASTING MACHINE SET UP OPERATOR 12/16/16 05:55 Basophils % CASTING MACHINE SET UP OPERATOR 12/16/16 05:55 Neutrophils (Manual) 80 % (40-80) 12/16/16 05:55 Lymphocytes 8 % (20-50) L 12/16/16 05:55 Monocytes 8 % (2-10) 12/16/16 05:55 Eosinophils 0 % (0-5) 12/13/16 19:37 Basophils 0 % (0-3) 12/13/16 19:37 Platelet Estimate SLIGHT DECREASED (NORMAL) 12/16/16 05:55 Platelet Morphology NORMAL (NORMAL) 12/14/16 08:50 RBC Morph Micro Appear NORMAL (NORMAL) 12/13/16 19:37 PT 14.5 SECONDS (9.5-11.5) H 12/13/16 19:37 INR 1.37 (0.5-1.4) 12/13/16 19:37 PTT (Actin FS) 39.0 SECONDS (26.0-38.0) H 12/13/16 19:37 Sodium 135 mEq/L (136-145) L 12/14/16 08:50 Potassium 3.4 mEq/L (3.5-5.1) L 12/14/16 08:50 Chloride 95 mEq/L (98-107) L 12/14/16 08:50 Carbon Dioxide 27.6 mEq/L (21.0-31.0) 12/14/16 08:50 Anion Gap 15.8 (7.0-16.0) 12/14/16 08:50 BUN 45 mg/dL (7-25) H 12/14/16 08:50 Creatinine 5.8 mg/dL (0.6-1.2) H* 12/14/16 08:50 Est GFR ( Amer) TNP 12/14/16 08:50 Est GFR (Non-Af Amer) TNP 12/14/16 08:50 BUN/Creatinine Ratio 7.8 12/14/16 08:50 Glucose 157 mg/dL (70-105) H 12/14/16 08:50 Hemoglobin A1c % 5.1 % (4.0-6.0) 12/15/16 07:44 Calcium 8.9 mg/dL (8.6-10.3) 12/14/16 08:50 Total Bilirubin 2.0 mg/dL (0.3-1.0) H 12/14/16 08:50 AST 29 U/L (13-39) 12/14/16 08:50 ALT 14 U/L (7-52) 12/14/16 08:50 Alkaline Phosphatase 132 U/L (34-104) H 12/14/16 08:50 Ammonia 39 umol/L (16-53) 12/16/16 05:55 Total Protein 5.4 gm/dL (6.0-8.3) L 12/14/16 08:50 Albumin 2.6 gm/dL (3.7-5.3) L 12/14/16 08:50 Globulin 2.8 gm/dL 12/14/16 08:50 Albumin/Globulin Ratio 0.9 (1.0-1.8) L 12/14/16 08:50 Triglycerides 146 mg/dL (<150) 12/15/16 07:44 Cholesterol 67 mg/dL (<200) 12/15/16 07:44 LDL Cholesterol Direct 18 mg/dL (75-193) L 12/15/16 07:44 HDL Cholesterol 7 mg/dL (23-92) L 12/15/16 07:44 TSH 1.39 uIU/ml (0.34-5.60) 12/15/16 07:44 Random Vancomycin 10.3 ug/mL (5.0-40.0) 12/16/16 05:55 - Physical Exam Vitals and I&O: Vital Signs Temp 97.7 F 12/16/16 17:28 Pulse 104 12/16/16 17:28 Resp 19 12/16/16 17:28 BP 98/77 12/16/16 17:28 Pulse Ox 97 12/16/16 17:28 Intake & Output 12/16/16 12/16/16 12/17/16 06:59 18:59 06:59 Intake Total 400 100 Balance 400 100 Weight (lbs) 83.37 kg Intake: Intake, IV Amount 200 100 Clindamycin 600mg/50mL 100 50 600 mg In 50 ml @ 100 mls /hr IV Q8HR [facility] Rx#: [id number] Piperacillin Sodium/ 100 50 Tazobact 2.25 gm In Sodium Chloride 0.9% 50 ml @ 100 mls/hr IV Q8HR [facility] Rx#:[id number] Oral 200 Other: # Voids 1 # Bowel Movements 1 Stool Characteristics Soft Active Medications: Current Medications Acyclovir (Zovirax) [address] [facility] Stop: 02/13/17 08:59 Last Admin: 12/16/16 09:11 Dose: 400 mg Amiodarone HCl (Cordarone) [address] [facility] Stop: 02/13/17 16:59 Last Admin: 12/16/16 16:53 Dose: 200 mg Calcitriol (Rocaltrol) 0.[address] [facility] Stop: 02/12/17 08:59 Last Admin: 12/16/16 09:13 Dose: 0.25 mcg Calcium Carbonate (Calcium Carb) [address] [facility] Stop: 02/12/17 08:59 Last Admin: 12/16/16 13:15 Dose: 600 mg Folic Acid (Folate) 1 mg PO DAILY [facility] Stop: 02/12/17 08:59 Last Admin: 12/16/16 09:14 Dose: 1 mg Gabapentin (Neurontin) 300 mg PO DAILY [facility] Stop: 02/12/17 08:59 Last Admin: 12/16/16 09:13 Dose: 300 mg Clindamycin Phosphate (Cleocin Pb) 600 mg in 50 mls @ 100 mls/hr IV Q8HR [facility] Stop: 02/13/17 04:59 Last Infusion: 12/16/16 13:45 Dose: Infused Piperacillin Sod/Tazobactam (Sod 2.25 gm/ Sodium Chloride) 50 mls @ 100 mls/hr IV Q8HR [facility] Stop: 02/13/17 04:59 Last Infusion: 12/16/16 12:30 Dose: Infused Lactobacillus Rhamnosus (Culturelle) [address] [facility] Stop: 02/14/17 08:59 Last Admin: 12/16/16 09:17 Dose: Not Given Lactulose (Cephulac) [address] [facility] Stop: 02/13/17 16:14 Last Admin: 12/16/16 09:12 Dose: 15 gm Miscellaneous (Clinical Monitoring) 1 ea DAILY PRN PRN Reason: RENAL Stop: 02/12/17 11:19 Miscellaneous (Vancomycin Iv Per Pharmacy) [address] [facility] Stop: 02/13/17 00:14 Miscellaneous (Probiotic Screen) 1 [facility] PRN PRN PRN Reason: PROTOCOL Stop: 02/13/17 09:47 Morphine Sulfate (Morphine) 2 mg IVP Q6H PRN PRN Reason: Pain (Moderate) Stop: 02/12/17 00:34 Last Admin: 12/14/16 22:59 Dose: 2 mg Pantoprazole Sodium (Protonix) [address] [facility] Stop: 02/12/17 08:59 Last Admin: 12/16/16 09:13 Dose: 40 mg Propranolol HCl (Inderal) [address] [facility] Stop: 02/12/17 08:59 Last Admin: 12/16/16 13:14 Dose: Not Given Rifaximin (Xifaxan) [address] [facility] Stop: 02/12/17 08:59 Last Admin: 12/16/16 09:11 Dose: 200 mg Sevelamer Carbonate (Renvela) 800 mg PO TID [facility] Stop: 02/12/17 08:59 Last Admin: 12/16/16 13:14 Dose: 800 mg Tramadol HCl (Ultram) 50 mg PO Q8H [facility] Stop: 02/12/17 16:59 Last Admin: 12/16/16 16:54 Dose: 50 mg Vitamin B Complex/Vit C/Folic Acid (Vitamin B Complex W/Vitamin C) 1 tab PO DAILY [facility] Stop: 02/12/17 08:59 Last Admin: 12/16/16 09:13 Dose: 1 tab General: no acute distress, well developed, well nourished HEENT: atraumatic, normocephalic, PERRLA Neck: supple, no thyromegaly Cardiovascular: S1S2, regular Lungs: clear to auscultation bilaterally, clear to percussion Abdomen: soft, no tender Extremities: other (left leg has large dlister, with underlying skin necrosis), no cyanosis, no clubbing Neurological: awake, alert, oriented Infectious Disease Assmt/Plan - Problem List Patient Problems: All Active Problems Anemia (Acute) D64.9 Cellulitis (Acute) L03.90 Chronic atrial fibrillation (Acute) I48.2 Diabetes mellitus (Acute) E11.9 ESRD (end stage renal disease) on dialysis (Acute) N18.6, Z99.2 Herpes zoster (Acute) B02.9 Left hip pain (Acute) M25.552 BRADLEY (nonalcoholic steatohepatitis) (Acute) K75.81 Peripheral vascular disease (Acute) I73.9 Thrombocytopenia (Acute) D69.6 - Assessment Assessment: 1. Left leg cellulitis. suspect strep versus staph infection, suspect underlying necrosis. 2. ? shingles in thigh. 3. DM2. 4. CKD 5 on HD. - Plan Plan: Continue vanco iv, zosyn, clinda and acyclovir. surgical consult with ofelia Rodriguez. Arterial study. Nutritional Asmnt/Malnutr-PDOC - Dietary Evaluation Malnutrition Findings (Please click <Entered> for more info): Nutritional Asmnt/Malnutrition Start: 12/15/16 15: 13 Text: Status: Complete Freq: Document 12/15/16 15:13 [facility] (Rec: 12/15/16 15:28 [facility] [id number]) Nutritional Asmnt/Malnutrition Patient General Information Nutritional Screening High Risk Screening Diagnosis Left leg pain, rash suspicious of herpes zoster Pertinent Medical Hx/Surgical Hx CVA, TIA, ESRD on dialysis, DM Subjective Information Pt is a 71-year-old female admitted with chief complaint of pain to left side of hip. Pt was asleep and unarousable to sound. Pt appears overwt with loose skin. RD unable to complete full malnutrition- focused physical assessment. CHRISTINA Pierre reports that pt feeds self independently. Pt has no teeth but currently tolerating food; RN request for soft foods in case. RD discussed with Dr. Domínguez, texture change approved. Current Diet Order/ Nutrition Support Renal Patient / S.O Indicated Pertinent Medications Rocaltrol, Calcium Carb, Cleocin, Folate, Morphine, Protonix, Renevla, Vitamin B Complex Pertinent Labs (12/14) BUN 45H and Creatinine 5 .8H (increasing), Total Bilrubin 2H, Alkaline Phosphatase 132H, Albumin 2.6L , Ammonia 89H Nutritional Hx/Data Height 1.55 m Height (Calculated Centimeters) 154.9 Current Weight (lbs) 66.224 kg Weight (Calculated Kilograms) 66.2 Weight (Calculated Grams) 94809.5 [place] Body Weight 105 % [place] Body Weight 139 Weight Status Overweight GI Symptoms GI Symptoms None Last BM Difficult in: Chewing Food Allergies No Cultural/Ethnic/Anabaptist Belief No preferences noted. Skin Integrity/Comment: Jf 17. No skin breakdown. Rash and bruises noted. Current %PO Good (75-100%) Estimated Nutritional Goals BEE in Kcals: Using Current wt Calories/Kcals/Kg Based on current wt 66.4 kg with consideration of dialysis Kcals Calculated 4906-1077 kcals/day (25-30 kcals/kg) Protein: Using Current wt Protein g/kg: Based on current wt 66.4 kg with consideration of dialysis Protein Calculated 80-93 gm/day (1.2-1.4 gm/kg) Fluid: ml Per MD/DO due to renal failure Nutritional Problem 1. Problem Problem Possible chewing difficulty related to Etiology complete edentulism as evidenced by Signs/Symptoms: RN reports. Malnutrition Alert Protein-Calorie Malnutrition N/A Is there a minimum of two criteria No selected? Query Text:Check all the applicable criteria. A minimum of two criteria are recommended for diagnosis of either severe or non-severe malnutrition. Malnutrition Related to Morbid Obesity Malnutrition related to morbid obesity No Intervention/Recommendation Comments 1. Recommend mechanical soft chopped, 90-gram renal diet to better meet estimated nutritional needs. Expected Outcomes/Goals Expected Outcomes/Goals Have pt meet at least 75% of estimated nutritional needs with acceptable tolerance. Physician Parameters for PEM Serum Albumin (g/dl) 2.4 - 3.0 (Moderate)
[2016-12-16] MEDS: Morphine Sulfate 2 mg/mL 1mL Syr IVP PRN (21:39)
[2016-12-17] MEDS: Piperacillin/Tazobact 2.25 gm in 0.9% NS 50 ML IV SCH ×3 (05:22→23:00)
--- NOTE | 2016-12-17 05:50 | General Progress Note ---
Subjective - Review of Systems Service Date: 12/17/16 Subjective: Awake,Alert,afebrile. no acute distress. Complains of left hip pain. Xray negative for fractures. Patient states pain is better. resting in bed. blisters present to the left hip with evidence of necrosis. Surgical consult today with Dr. Cordon. please see dictated report. continue current treatment. Objective - Results Result Diagrams: 12/16/16 05:55 12/14/16 08:50 Recent Labs: Laboratory Last Values WBC 8.7 Th/cmm (4.8-10.8) D 12/16/16 05:55 RBC 3.41 Mil/cmm (3.80-5.20) L 12/16/16 05:55 Hgb 11.8 gm/dL (11.7-16.1) 12/16/16 05:55 Hct 34.8 % (35.0-45.0) L D 12/16/16 05:55 MCV 101.9 fl (81-100) H 12/16/16 05:55 MCH 34.5 pg (27.0-31.0) H 12/16/16 05:55 MCHC Differential 33.9 pg (28.0-36.0) 12/16/16 05:55 RDW 17.8 % (11.5-20.0) 12/16/16 05:55 Plt Count 48 Th/cmm (150-400) L 12/16/16 05:55 MPV 10.1 fl 12/16/16 05:55 Neutrophils % GENERAL ACCOUNTING MANAGER 12/16/16 05:55 Band Neutrophils % 4 % (0-10) 12/16/16 05:55 Lymphocytes % GENERAL ACCOUNTING MANAGER 12/16/16 05:55 Monocytes % GENERAL ACCOUNTING MANAGER 12/16/16 05:55 Eosinophils % GENERAL ACCOUNTING MANAGER 12/16/16 05:55 Basophils % GENERAL ACCOUNTING MANAGER 12/16/16 05:55 Neutrophils (Manual) 80 % (40-80) 12/16/16 05:55 Lymphocytes 8 % (20-50) L 12/16/16 05:55 Monocytes 8 % (2-10) 12/16/16 05:55 Eosinophils 0 % (0-5) 12/13/16 19:37 Basophils 0 % (0-3) 12/13/16 19:37 Platelet Estimate SLIGHT DECREASED (NORMAL) 12/16/16 05:55 Platelet Morphology NORMAL (NORMAL) 12/14/16 08:50 RBC Morph Micro Appear NORMAL (NORMAL) 12/13/16 19:37 PT 14.5 SECONDS (9.5-11.5) H 12/13/16 19:37 INR 1.37 (0.5-1.4) 12/13/16 19:37 PTT (Actin FS) 39.0 SECONDS (26.0-38.0) H 12/13/16 19:37 Sodium 135 mEq/L (136-145) L 12/14/16 08:50 Potassium 3.4 mEq/L (3.5-5.1) L 12/14/16 08:50 Chloride 95 mEq/L (98-107) L 12/14/16 08:50 Carbon Dioxide 27.6 mEq/L (21.0-31.0) 12/14/16 08:50 Anion Gap 15.8 (7.0-16.0) 12/14/16 08:50 BUN 45 mg/dL (7-25) H 12/14/16 08:50 Creatinine 5.8 mg/dL (0.6-1.2) H* 12/14/16 08:50 Est GFR ( Amer) TNP 12/14/16 08:50 Est GFR (Non-Af Amer) TNP 12/14/16 08:50 BUN/Creatinine Ratio 7.8 12/14/16 08:50 Glucose 157 mg/dL (70-105) H 12/14/16 08:50 Hemoglobin A1c % 5.1 % (4.0-6.0) 12/15/16 07:44 Calcium 8.9 mg/dL (8.6-10.3) 12/14/16 08:50 Total Bilirubin 2.0 mg/dL (0.3-1.0) H 12/14/16 08:50 AST 29 U/L (13-39) 12/14/16 08:50 ALT 14 U/L (7-52) 12/14/16 08:50 Alkaline Phosphatase 132 U/L (34-104) H 12/14/16 08:50 Ammonia 39 umol/L (16-53) 12/16/16 05:55 Total Protein 5.4 gm/dL (6.0-8.3) L 12/14/16 08:50 Albumin 2.6 gm/dL (3.7-5.3) L 12/14/16 08:50 Globulin 2.8 gm/dL 12/14/16 08:50 Albumin/Globulin Ratio 0.9 (1.0-1.8) L 12/14/16 08:50 Triglycerides 146 mg/dL (<150) 12/15/16 07:44 Cholesterol 67 mg/dL (<200) 12/15/16 07:44 LDL Cholesterol Direct 18 mg/dL (75-193) L 12/15/16 07:44 HDL Cholesterol 7 mg/dL (23-92) L 12/15/16 07:44 TSH 1.39 uIU/ml (0.34-5.60) 12/15/16 07:44 Random Vancomycin 10.3 ug/mL (5.0-40.0) 12/16/16 05:55 - Physical Exam Vitals and I&O: Vital Signs Temp 96.5 F 12/17/16 04:00 Pulse 118 12/17/16 04:00 Resp 18 12/17/16 05:00 BP 98/59 12/17/16 04:00 Pulse Ox 98 12/17/16 04:00 Intake & Output 12/16/16 12/16/16 12/17/16 06:59 18:59 06:59 Intake Total 400 100 243.333 Balance 400 100 243.333 Weight (lbs) 83.37 kg 76.657 kg Intake: Intake, IV Amount 200 100 143.333 Clindamycin 600mg/50mL 100 50 100 600 mg In 50 ml @ 100 mls /hr IV Q8HR [facility] Rx#: [id number] Piperacillin Sodium/ 100 50 43.333 Tazobact 2.25 gm In Sodium Chloride 0.9% 50 ml @ 100 mls/hr IV Q8HR [facility] Rx#:[id number] Oral 200 100 Other: # Voids 1 2 # Bowel Movements 1 3 Stool Characteristics Soft Active Medications: Current Medications Acyclovir (Zovirax) 400 mg PO DAILY [facility] Stop: 02/13/17 08:59 Last Admin: 12/16/16 09:11 Dose: 400 mg Amiodarone HCl (Cordarone) 200 mg PO BID [facility] Stop: 02/13/17 16:59 Last Admin: 12/16/16 16:53 Dose: 200 mg Calcitriol (Rocaltrol) 0.25 mcg PO DAILY [facility] Stop: 02/12/17 08:59 Last Admin: 12/16/16 09:13 Dose: 0.25 mcg Calcium Carbonate (Calcium Carb) 600 mg PO TID [facility] Stop: 02/12/17 08:59 Last Admin: 12/16/16 21:30 Dose: 600 mg Folic Acid (Folate) 1 mg PO DAILY [facility] Stop: 02/12/17 08:59 Last Admin: 12/16/16 09:14 Dose: 1 mg Gabapentin (Neurontin) 300 mg PO DAILY [facility] Stop: 02/12/17 08:59 Last Admin: 12/16/16 09:13 Dose: 300 mg Clindamycin Phosphate (Cleocin Pb) 600 mg in 50 mls @ 100 mls/hr IV Q8HR [facility] Stop: 02/13/17 04:59 Last Infusion: 12/17/16 05:23 Dose: Infused Piperacillin Sod/Tazobactam (Sod 2.25 gm/ Sodium Chloride) 50 mls @ 100 mls/hr IV Q8HR [facility] Stop: 02/13/17 04:59 Last Admin: 12/17/16 05:22 Dose: 100 mls/hr Lactobacillus Rhamnosus (Culturelle) 1 each PO DAILY [facility] Stop: 02/14/17 08:59 Last Admin: 12/16/16 09:17 Dose: Not Given Lactulose (Cephulac) 15 gm PO DAILY [facility] Stop: 02/13/17 16:14 Last Admin: 12/16/16 09:12 Dose: 15 gm Miscellaneous (Clinical Monitoring) 1 ea DAILY PRN PRN Reason: RENAL Stop: 02/12/17 11:19 Miscellaneous (Vancomycin Iv Per Pharmacy) 1 ea MC PRN [facility] Stop: 02/13/17 00:14 Miscellaneous (Probiotic Screen) 1 ea PRN PRN PRN Reason: PROTOCOL Stop: 02/13/17 09:47 Morphine Sulfate (Morphine) 2 mg IVP Q6H PRN PRN Reason: Pain (Moderate) Stop: 02/12/17 00:34 Last Admin: 12/16/16 21:39 Dose: 2 mg Pantoprazole Sodium (Protonix) 40 mg PO DAILY [facility] Stop: 02/12/17 08:59 Last Admin: 12/16/16 09:13 Dose: 40 mg Propranolol HCl (Inderal) 20 mg PO TID [facility] Stop: 02/12/17 08:59 Last Admin: 12/16/16 21:31 Dose: Not Given Rifaximin (Xifaxan) 200 mg PO Q12H [facility] Stop: 02/12/17 08:59 Last Admin: 12/16/16 21:33 Dose: 200 mg Sevelamer Carbonate (Renvela) 800 mg PO TID [facility] Stop: 02/12/17 08:59 Last Admin: 12/16/16 21:33 Dose: 800 mg Tramadol HCl (Ultram) 50 mg PO Q8H [facility] Stop: 02/12/17 16:59 Last Admin: 12/17/16 00:55 Dose: 50 mg Vitamin B Complex/Vit C/Folic Acid (Vitamin B Complex W/Vitamin C) 1 tab PO DAILY [facility] Stop: 02/12/17 08:59 Last Admin: 12/16/16 09:13 Dose: 1 tab General: Alert, Oriented x3, No acute distress HEENT: Atraumatic, PERRLA, EOMI Neck: Supple Cardiovascular: Regular rate, Normal S1, Normal S2 Lungs: Clear to auscultation Abdomen: Bowel sounds Extremities: Edema, no Clubbing, no Cyanosis Skin: Rash (vesicular rash present to the left hip cellulitis) Assessment/Plan - Problem List Patient Problems: All Active Problems Anemia (Acute) D64.9 Cellulitis (Acute) L03.90 Chronic atrial fibrillation (Acute) I48.2 Diabetes mellitus (Acute) E11.9 ESRD (end stage renal disease) on dialysis (Acute) N18.6, Z99.2 Herpes zoster (Acute) B02.9 Left hip pain (Acute) M25.552 BRADLEY (nonalcoholic steatohepatitis) (Acute) K75.81 Peripheral vascular disease (Acute) I73.9 Thrombocytopenia (Acute) D69.6 - Assessment Assessment: left leg pain cellulitis herpes zoster End Stage Renal Disease on HD Diabetes Mellitus Chronic Atrial Fibrillation Thrombocytopenia Anemia PVD BRADLEY - Plan Plan: eft leg pain cellulitis herpes zoster End Stage Renal Disease on HD Diabetes Mellitus Chronic Atrial Fibrillation Thrombocytopenia Anemia PVD BRADLEY Nutritional Asmnt/Malnutr-PDOC - Dietary Evaluation Malnutrition Findings (Please click <Entered> for more info): Nutritional Asmnt/Malnutrition Start: 12/15/16 15: 13 Text: Status: Complete Freq: Document 12/15/16 15:13 [facility] (Rec: 12/15/16 15:28 [facility] [id number]) Nutritional Asmnt/Malnutrition Patient General Information Nutritional Screening High Risk Screening Diagnosis Left leg pain, rash suspicious of herpes zoster Pertinent Medical Hx/Surgical Hx CVA, TIA, ESRD on dialysis, DM Subjective Information Pt is a 71-year-old female admitted with chief complaint of pain to left side of hip. Pt was asleep and unarousable to sound. Pt appears overwt with loose skin. RD unable to complete full malnutrition- focused physical assessment. CHRISTINA Pierre reports that pt feeds self independently. Pt has no teeth but currently tolerating food; RN request for soft foods in case. RD discussed with Dr. Domínguez, texture change approved. Current Diet Order/ Nutrition Support Renal Patient / S.O Indicated Pertinent Medications Rocaltrol, Calcium Carb, Cleocin, Folate, Morphine, Protonix, Renevla, Vitamin B Complex Pertinent Labs (12/14) BUN 45H and Creatinine 5 .8H (increasing), Total Bilrubin 2H, Alkaline Phosphatase 132H, Albumin 2.6L , Ammonia 89H Nutritional Hx/Data Height 1.55 m Height (Calculated Centimeters) 154.9 Current Weight (lbs) 66.224 kg Weight (Calculated Kilograms) 66.2 Weight (Calculated Grams) 68843.5 [place] Body Weight 105 % [place] Body Weight 139 Weight Status Overweight GI Symptoms GI Symptoms None Last BM Difficult in: Chewing Food Allergies No Cultural/Ethnic/B[employer]ism Belief No preferences noted. Skin Integrity/Comment: Jf 17. No skin breakdown. Rash and bruises noted. Current %PO Good (75-100%) Estimated Nutritional Goals BEE in Kcals: Using Current wt Calories/Kcals/Kg Based on current wt 66.4 kg with consideration of dialysis Kcals Calculated 1885-6447 kcals/day (25-30 kcals/kg) Protein: Using Current wt Protein g/kg: Based on current wt 66.4 kg with consideration of dialysis Protein Calculated 80-93 gm/day (1.2-1.4 gm/kg) Fluid: ml Per MD/DO due to renal failure Nutritional Problem 1. Problem Problem Possible chewing difficulty related to Etiology complete edentulism as evidenced by Signs/Symptoms: RN reports. Malnutrition Alert Protein-Calorie Malnutrition N/A Is there a minimum of two criteria No selected? Query Text:Check all the applicable criteria. A minimum of two criteria are recommended for diagnosis of either severe or non-severe malnutrition. Malnutrition Related to Morbid Obesity Malnutrition related to morbid obesity No Intervention/Recommendation Comments 1. Recommend mechanical soft chopped, 90-gram renal diet to better meet estimated nutritional needs. Expected Outcomes/Goals Expected Outcomes/Goals Have pt meet at least 75% of estimated nutritional needs with acceptable tolerance. Physician Parameters for PEM Serum Albumin (g/dl) 2.4 - 3.0 (Moderate)
[2016-12-17 07:01] LABS: HEMATOCRIT 32.5 % (35.0-45.0); HEMOGLOBIN 10.9 gm/dL (11.7-16.1); MEAN CELL VOLUME 101.6 fl (81-100); MEAN CORPUSCULAR HEMOGLOBIN 34.2 pg (27.0-31.0); MEAN CORPUSCULAR HGB CONC 33.7 pg (28.0-36.0); MEAN PLATELET VOLUME 10.7 fl; RED CELL DISTRIBUTION WIDTH 17.9 % (11.5-20.0); WHITE BLOOD COUNT 8.5 Th/cmm (4.8-10.8)
[2016-12-17 07:06] LABS: PLATELET COUNT 68 Th/cmm (150-400)
[2016-12-17 08:33] LABS: ANISOCYTOSIS 1+; BAND NEUTROPHILE 7 % (0-10); EOSINOPHIL 1 % (0-5); NEUTROPHILS 72 % (40-80); PLATELET ESTIMATE DECREASED PLATELETS (NORMAL); PLATELET MORPHOLOGY NORMAL (NORMAL); TOTAL CELLS COUNTED 100
--- NOTE | 2016-12-17 08:51 | Diagnostic Imaging Report ---
Exam: Ultrasound examination of the posterior circulation lower extremities bilaterally. HISTORY: Peripheral vascular disease. Findings: Real-time ultrasound examination of the deep posterior circulation lower extremities bilaterally was performed utilizing color Doppler technique. The study demonstrates mild to moderate plaque formation along the course of the common femoral superficial femoral and popliteal arteries with the biphasic flow throughout the right lower extremity duplex. Circulation. The right ankle-brachial index 0.6 The left lower extremity demonstrates a predominantly biphasic flow through the deep posterior circulation throughout with a monophasic flow in the distal left superficial femoral artery. Mild to moderate plaquing is seen throughout. The left ankle brachial indexes 0.6 IMPRESSION: 1. No evidence of significant stenosis or alteration of flow with mild to moderate plaque formation throughout. 2. The right lower extremity demonstrates uniform biphasic flow throughout. No significant stenosis or alteration of flow. 3. The left lower extremity demonstrates a monophasic flow in the left distal superficial femoral artery as well is a anterior tibial artery. Mild to moderate plaque formation is noted throughout without significant stenosis or alteration of flow.
[2016-12-17] MEDS: Lactulose 10 Gm/15 mL 30mL UDC PO SCH (09:00)
[2016-12-17] MEDS: Vitamin B Complex w/Vitamin C Tab PO SCH (10:37)
[2016-12-17] MEDS: Lactobacillus Rhamnosus 10 Billion CFU Capsule PO SCH (10:38)
[2016-12-17] MEDS: Sevelamer Carnonate 800 mg Tab PO SCH ×3 (10:38→21:42)
[2016-12-17] MEDS: Pantoprazole 40 mg EC Tab PO SCH (10:38)
[2016-12-17] MEDS: Morphine Sulfate 2 mg/mL 1mL Syr IVP PRN ×2 (12:50→21:47)
[2016-12-17] MEDS ORDERED: Vancomycin HCl 500 MG in Sodium Chloride 0.9% 100 ML IV SCH (21:00)
[2016-12-18] MEDS: Piperacillin/Tazobact 2.25 gm in 0.9% NS 50 ML IV SCH ×3 (06:02→20:51)
[2016-12-18 06:28] LABS: HEMATOCRIT 31.5 % (35.0-45.0); HEMOGLOBIN 10.7 gm/dL (11.7-16.1); MEAN CELL VOLUME 102.3 fl (81-100); MEAN CORPUSCULAR HEMOGLOBIN 34.7 pg (27.0-31.0); MEAN CORPUSCULAR HGB CONC 33.9 pg (28.0-36.0); MEAN PLATELET VOLUME 10.5 fl; PLATELET COUNT 81 Th/cmm (150-400); RED BLOOD COUNT 3.08 Mil/cmm (3.80-5.20); RED CELL DISTRIBUTION WIDTH 17.1 % (11.5-20.0); WHITE BLOOD COUNT 8.8 Th/cmm (4.8-10.8)
--- NOTE | 2016-12-18 07:20 | General Progress Note ---
Subjective - Review of Systems Service Date: 12/18/16 Subjective: Awake,Alert,afebrile. no acute distress. Complains of left hip pain. Xray negative for fractures. Patient states pain is better. resting in bed. blisters present to the left hip with evidence of necrosis. Surgical consult today with Dr. Cordon. please see dictated report. continue current treatment. Objective - Results Result Diagrams: 12/18/16 06:09 12/14/16 08:50 Recent Labs: Laboratory Last Values WBC 8.8 Th/cmm (4.8-10.8) 12/18/16 06:09 RBC 3.08 Mil/cmm (3.80-5.20) L 12/18/16 06:09 Hgb 10.7 gm/dL (11.7-16.1) L 12/18/16 06:09 Hct 31.5 % (35.0-45.0) L 12/18/16 06:09 MCV 102.3 fl (81-100) H 12/18/16 06:09 MCH 34.7 pg (27.0-31.0) H 12/18/16 06:09 MCHC Differential 33.9 pg (28.0-36.0) 12/18/16 06:09 RDW 17.1 % (11.5-20.0) 12/18/16 06:09 Plt Count 81 Th/cmm (150-400) L 12/18/16 06:09 MPV 10.5 fl 12/18/16 06:09 Neutrophils % FIELD COIL WINDER 12/16/16 05:55 Band Neutrophils % 7 % (0-10) 12/17/16 06:42 Lymphocytes % FIELD COIL WINDER 12/16/16 05:55 Monocytes % FIELD COIL WINDER 12/16/16 05:55 Eosinophils % FIELD COIL WINDER 12/16/16 05:55 Basophils % FIELD COIL WINDER 12/16/16 05:55 Neutrophils (Manual) 72 % (40-80) 12/17/16 06:42 Lymphocytes 10 % (20-50) L 12/17/16 06:42 Monocytes 10 % (2-10) 12/17/16 06:42 Eosinophils 1 % (0-5) 12/17/16 06:42 Basophils 0 % (0-3) 12/13/16 19:37 Platelet Estimate DECREASED PLATELETS (NORMAL) 12/17/16 06:42 Platelet Morphology NORMAL (NORMAL) 12/17/16 06:42 Anisocytosis 1+ 12/17/16 06:42 RBC Morph Micro Appear ABNORMAL (NORMAL) 12/17/16 06:42 PT 14.5 SECONDS (9.5-11.5) H 12/13/16 19:37 INR 1.37 (0.5-1.4) 12/13/16 19:37 PTT (Actin FS) 39.0 SECONDS (26.0-38.0) H 12/13/16 19:37 Sodium 135 mEq/L (136-145) L 12/14/16 08:50 Potassium 3.4 mEq/L (3.5-5.1) L 12/14/16 08:50 Chloride 95 mEq/L (98-107) L 12/14/16 08:50 Carbon Dioxide 27.6 mEq/L (21.0-31.0) 12/14/16 08:50 Anion Gap 15.8 (7.0-16.0) 12/14/16 08:50 BUN 45 mg/dL (7-25) H 12/14/16 08:50 Creatinine 5.8 mg/dL (0.6-1.2) H* 12/14/16 08:50 Est GFR ( Amer) TNP 12/14/16 08:50 Est GFR (Non-Af Amer) TNP 12/14/16 08:50 BUN/Creatinine Ratio 7.8 12/14/16 08:50 Glucose 157 mg/dL (70-105) H 12/14/16 08:50 Hemoglobin A1c % 5.1 % (4.0-6.0) 12/15/16 07:44 Calcium 8.9 mg/dL (8.6-10.3) 12/14/16 08:50 Total Bilirubin 2.0 mg/dL (0.3-1.0) H 12/14/16 08:50 AST 29 U/L (13-39) 12/14/16 08:50 ALT 14 U/L (7-52) 12/14/16 08:50 Alkaline Phosphatase 132 U/L (34-104) H 12/14/16 08:50 Ammonia 34 umol/L (16-53) 12/17/16 06:42 Total Protein 5.4 gm/dL (6.0-8.3) L 12/14/16 08:50 Albumin 2.6 gm/dL (3.7-5.3) L 12/14/16 08:50 Globulin 2.8 gm/dL 12/14/16 08:50 Albumin/Globulin Ratio 0.9 (1.0-1.8) L 12/14/16 08:50 Triglycerides 146 mg/dL (<150) 12/15/16 07:44 Cholesterol 67 mg/dL (<200) 12/15/16 07:44 LDL Cholesterol Direct 18 mg/dL (75-193) L 12/15/16 07:44 HDL Cholesterol 7 mg/dL (23-92) L 12/15/16 07:44 TSH 1.39 uIU/ml (0.34-5.60) 12/15/16 07:44 Random Vancomycin 22.7 ug/mL (5.0-40.0) 12/18/16 06:09 - Physical Exam Vitals and I&O: Vital Signs Temp 98.9 F 12/18/16 04:00 Pulse 72 12/18/16 04:00 Resp 19 12/18/16 04:00 BP 95/41 12/18/16 04:00 Pulse Ox 96 12/18/16 04:00 Intake & Output 12/17/16 12/18/16 12/18/16 18:59 06:59 18:59 Intake Total 50 250 Balance 50 250 Weight (lbs) 76.657 kg 85.139 kg Intake: Intake, IV Amount 50 250 Clindamycin 600mg/50mL 50 50 600 mg In 50 ml @ 100 mls /hr IV Q8HR [facility] Rx#: [id number] Piperacillin Sodium/ 100 Tazobact 2.25 gm In Sodium Chloride 0.9% 50 ml @ 100 mls/hr IV Q8HR [facility] Rx#:[id number] Vancomycin HCl 500 mg In 100 Sodium Chloride 0.9% 100 ml @ 100 mls/hr IV 2100 [facility] Rx#:[id number] Other: Stool Characteristics Soft Soft Active Medications: Current Medications Acyclovir (Zovirax) 400 mg PO DAILY [facility] Stop: 02/13/17 08:59 Last Admin: 12/17/16 10:34 Dose: 400 mg Amiodarone HCl (Cordarone) 200 mg PO BID [facility] Stop: 02/13/17 16:59 Last Admin: 12/17/16 18:58 Dose: 200 mg Calcitriol (Rocaltrol) 0.25 mcg PO DAILY [facility] Stop: 02/12/17 08:59 Last Admin: 12/17/16 10:35 Dose: 0.25 mcg Calcium Carbonate (Calcium Carb) 600 mg PO TID [facility] Stop: 02/12/17 08:59 Last Admin: 12/17/16 21:38 Dose: 600 mg Folic Acid (Folate) 1 mg PO DAILY [facility] Stop: 02/12/17 08:59 Last Admin: 12/17/16 10:38 Dose: 1 mg Gabapentin (Neurontin) 300 mg PO DAILY [facility] Stop: 02/12/17 08:59 Last Admin: 12/17/16 10:39 Dose: 300 mg Clindamycin Phosphate (Cleocin Pb) 600 mg in 50 mls @ 100 mls/hr IV Q8HR [facility] Stop: 02/13/17 04:59 Last Admin: 12/18/16 05:18 Dose: 100 mls/hr Piperacillin Sod/Tazobactam (Sod 2.25 gm/ Sodium Chloride) 50 mls @ 100 mls/hr IV Q8HR [facility] Stop: 02/13/17 04:59 Last Admin: 12/18/16 06:02 Dose: 100 mls/hr Lactobacillus Rhamnosus (Culturelle) 1 each PO DAILY [facility] Stop: 02/14/17 08:59 Last Admin: 12/17/16 10:38 Dose: 1 each Lactulose (Cephulac) 15 gm PO DAILY [facility] Stop: 02/13/17 16:14 Last Admin: 12/17/16 09:00 Dose: 15 gm Miscellaneous (Clinical Monitoring) 1 ea DAILY PRN PRN Reason: RENAL Stop: 02/12/17 11:19 Miscellaneous (Vancomycin Iv Per Pharmacy) 1 ea PRN [facility] Stop: 02/13/17 00:14 Miscellaneous (Probiotic Screen) 1 ea PRN PRN PRN Reason: PROTOCOL Stop: 02/13/17 09:47 Morphine Sulfate (Morphine) 2 mg IVP Q6H PRN PRN Reason: Pain (Moderate) Stop: 02/12/17 00:34 Last Admin: 12/17/16 21:47 Dose: 2 mg Pantoprazole Sodium (Protonix) 40 mg PO DAILY [facility] Stop: 02/12/17 08:59 Last Admin: 12/17/16 10:38 Dose: 40 mg Propranolol HCl (Inderal) 20 mg PO TID [facility] Stop: 02/12/17 08:59 Last Admin: 12/17/16 21:42 Dose: 20 mg Rifaximin (Xifaxan) 200 mg PO Q12H [facility] Stop: 02/12/17 08:59 Last Admin: 12/17/16 21:38 Dose: 200 mg Sevelamer Carbonate (Renvela) 800 mg PO TID [facility] Stop: 02/12/17 08:59 Last Admin: 12/17/16 21:42 Dose: 800 mg Tramadol HCl (Ultram) 50 mg PO Q8H [facility] Stop: 02/12/17 16:59 Last Admin: 12/18/16 00:48 Dose: Not Given Vitamin B Complex/Vit C/Folic Acid (Vitamin B Complex W/Vitamin C) 1 tab PO DAILY [facility] Stop: 02/12/17 08:59 Last Admin: 12/17/16 10:37 Dose: 1 tab General: Alert, Oriented x3, No acute distress HEENT: Atraumatic, PERRLA, EOMI Neck: Supple Cardiovascular: Regular rate, Normal S1, Normal S2 Lungs: Clear to auscultation Abdomen: Bowel sounds Extremities: Edema, no Clubbing, no Cyanosis Skin: Rash (vesicular rash present to the left hip cellulitis) Assessment/Plan - Problem List Patient Problems: All Active Problems Anemia (Acute) D64.9 Cellulitis (Acute) L03.90 Chronic atrial fibrillation (Acute) I48.2 Diabetes mellitus (Acute) E11.9 ESRD (end stage renal disease) on dialysis (Acute) N18.6, Z99.2 Herpes zoster (Acute) B02.9 Left hip pain (Acute) M25.552 BRADLEY (nonalcoholic steatohepatitis) (Acute) K75.81 Peripheral vascular disease (Acute) I73.9 Thrombocytopenia (Acute) D69.6 - Assessment Assessment: left leg pain cellulitis herpes zoster End Stage Renal Disease on HD Diabetes Mellitus Chronic Atrial Fibrillation Thrombocytopenia Anemia PVD BRADLEY - Plan Plan: eft leg pain cellulitis herpes zoster End Stage Renal Disease on HD Diabetes Mellitus Chronic Atrial Fibrillation Thrombocytopenia Anemia PVD BRADLEY Nutritional Asmnt/Malnutr-PDOC - Dietary Evaluation Malnutrition Findings (Please click <Entered> for more info): Nutritional Asmnt/Malnutrition Start: 12/15/16 15: 13 Text: Status: Complete Freq: Document 12/15/16 15:13 [facility] (Rec: 12/15/16 15:28 [facility] [id number]) Nutritional Asmnt/Malnutrition Patient General Information Nutritional Screening High Risk Screening Diagnosis Left leg pain, rash suspicious of herpes zoster Pertinent Medical Hx/Surgical Hx CVA, TIA, ESRD on dialysis, DM Subjective Information Pt is a 71-year-old female admitted with chief complaint of pain to left side of hip. Pt was asleep and unarousable to sound. Pt appears overwt with loose skin. RD unable to complete full malnutrition- focused physical assessment. RN Gabby reports that pt feeds self independently. Pt has no teeth but currently tolerating food; RN request for soft foods in case. RD discussed with Dr. Domínguez, texture change approved. Current Diet Order/ Nutrition Support Renal Patient / S.O Indicated Pertinent Medications Rocaltrol, Calcium Carb, Cleocin, Folate, Morphine, Protonix, Renevla, Vitamin B Complex Pertinent Labs (12/14) BUN 45H and Creatinine 5 .8H (increasing), Total Bilrubin 2H, Alkaline Phosphatase 132H, Albumin 2.6L , Ammonia 89H Nutritional Hx/Data Height 1.55 m Height (Calculated Centimeters) 154.9 Current Weight (lbs) 66.224 kg Weight (Calculated Kilograms) 66.2 Weight (Calculated Grams) 86660.5 [place] Body Weight 105 % [place] Body Weight 139 Weight Status Overweight GI Symptoms GI Symptoms None Last BM Difficult in: Chewing Food Allergies No Cultural/Ethnic/[employer] Belief No preferences noted. Skin Integrity/Comment: Jf 17. No skin breakdown. Rash and bruises noted. Current %PO Good (75-100%) Estimated Nutritional Goals BEE in Kcals: Using Current wt Calories/Kcals/Kg Based on current wt 66.4 kg with consideration of dialysis Kcals Calculated 8569-3204 kcals/day (25-30 kcals/kg) Protein: Using Current wt Protein g/kg: Based on current wt 66.4 kg with consideration of dialysis Protein Calculated 80-93 gm/day (1.2-1.4 gm/kg) Fluid: ml Per MD/DO due to renal failure Nutritional Problem 1. Problem Problem Possible chewing difficulty related to Etiology complete edentulism as evidenced by Signs/Symptoms: RN reports. Malnutrition Alert Protein-Calorie Malnutrition N/A Is there a minimum of two criteria No selected? Query Text:Check all the applicable criteria. A minimum of two criteria are recommended for diagnosis of either severe or non-severe malnutrition. Malnutrition Related to Morbid Obesity Malnutrition related to morbid obesity No Intervention/Recommendation Comments 1. Recommend mechanical soft chopped, 90-gram renal diet to better meet estimated nutritional needs. Expected Outcomes/Goals Expected Outcomes/Goals Have pt meet at least 75% of estimated nutritional needs with acceptable tolerance. Physician Parameters for PEM Serum Albumin (g/dl) 2.4 - 3.0 (Moderate)
[2016-12-18 08:38] LABS: ALB/GLOB RATIO 0.9 (1.0-1.8); ALKALINE PHOSPHATASE 77 U/L (34-104); ANION GAP 12.1 (7.0-16.0); BILIRUBIN,TOTAL 3.1 mg/dL (0.3-1.0); BUN - UREA NITROGEN 35 mg/dL (7-25); BUN/CREATININE RATIO 7.1; CALCIUM SERUM 8.8 mg/dL (8.6-10.3); CARBON DIOXIDE 24.8 mEq/L (21.0-31.0); CHLORIDE 94 mEq/L (98-107); GLUCOSE 92 mg/dL (70-105); POTASSIUM SERUM 3.9 mEq/L (3.5-5.1); SGOT 15 U/L (13-39); SGPT/ALT 8 U/L (7-52); SODIUM SERUM 127 mEq/L (136-145)
[2016-12-18 09:09] LABS: CREATININE - SERUM 4.9 mg/dL (0.6-1.2)
[2016-12-18] MEDS: Pantoprazole 40 mg EC Tab PO SCH (09:43)
[2016-12-18] MEDS: Vitamin B Complex w/Vitamin C Tab PO SCH (09:44)
[2016-12-18] MEDS: Lactulose 10 Gm/15 mL 30mL UDC PO SCH (09:46)
[2016-12-18] MEDS: Lactobacillus Rhamnosus 10 Billion CFU Capsule PO SCH (09:46)
[2016-12-18 10:06] LABS: BAND NEUTROPHILE 2 % (0-10); EOSINOPHIL 1 % (0-5); NEUTROPHILS 82 % (40-80); TOTAL CELLS COUNTED 100
[2016-12-18 10:07] LABS: PLATELET ESTIMATE DECREASED PLATELETS (NORMAL); PLATELET MORPHOLOGY NORMAL (NORMAL); POLYCHROMASIA 1+
[2016-12-18] MEDS: Sevelamer Carnonate 800 mg Tab PO SCH ×3 (10:48→21:01)
--- NOTE | 2016-12-18 11:23 | General Progress Note ---
Subjective - Review of Systems Service Date: 12/18/16 Events since last encounter: blisters left leg removed local wound care ordered Objective - Results Result Diagrams: 12/18/16 06:09 12/18/16 06:09 Recent Labs: Laboratory Last Values WBC 8.8 Th/cmm (4.8-10.8) 12/18/16 06:09 RBC 3.08 Mil/cmm (3.80-5.20) L 12/18/16 06:09 Hgb 10.7 gm/dL (11.7-16.1) L 12/18/16 06:09 Hct 31.5 % (35.0-45.0) L 12/18/16 06:09 MCV 102.3 fl (81-100) H 12/18/16 06:09 MCH 34.7 pg (27.0-31.0) H 12/18/16 06:09 MCHC Differential 33.9 pg (28.0-36.0) 12/18/16 06:09 RDW 17.1 % (11.5-20.0) 12/18/16 06:09 Plt Count 81 Th/cmm (150-400) L 12/18/16 06:09 MPV 10.5 fl 12/18/16 06:09 Neutrophils % RECONCILER 12/16/16 05:55 Band Neutrophils % 2 % (0-10) 12/18/16 06:09 Lymphocytes % RECONCILER 12/16/16 05:55 Monocytes % RECONCILER 12/16/16 05:55 Eosinophils % RECONCILER 12/16/16 05:55 Basophils % RECONCILER 12/16/16 05:55 Neutrophils (Manual) 82 % (40-80) H 12/18/16 06:09 Lymphocytes 9 % (20-50) L 12/18/16 06:09 Monocytes 6 % (2-10) 12/18/16 06:09 Eosinophils 1 % (0-5) 12/18/16 06:09 Basophils 0 % (0-3) 12/13/16 19:37 Nucleated RBCs 1.0 % (0-0) H 12/18/16 06:09 Platelet Estimate DECREASED PLATELETS (NORMAL) 12/18/16 06:09 Platelet Morphology NORMAL (NORMAL) 12/18/16 06:09 Polychromasia 1+ 12/18/16 06:09 Anisocytosis 1+ 12/17/16 06:42 RBC Morph Micro Appear ABNORMAL (NORMAL) 12/18/16 06:09 PT 14.5 SECONDS (9.5-11.5) H 12/13/16 19:37 INR 1.37 (0.5-1.4) 12/13/16 19:37 PTT (Actin FS) 39.0 SECONDS (26.0-38.0) H 12/13/16 19:37 Sodium 127 mEq/L (136-145) L 12/18/16 06:09 Potassium 3.9 mEq/L (3.5-5.1) 12/18/16 06:09 Chloride 94 mEq/L (98-107) L 12/18/16 06:09 Carbon Dioxide 24.8 mEq/L (21.0-31.0) 12/18/16 06:09 Anion Gap 12.1 (7.0-16.0) 12/18/16 06:09 BUN 35 mg/dL (7-25) H 12/18/16 06:09 Creatinine 4.9 mg/dL (0.6-1.2) H* 12/18/16 06:09 Est GFR ( Amer) TNP 12/18/16 06:09 Est GFR (Non-Af Amer) TNP 12/18/16 06:09 BUN/Creatinine Ratio 7.1 12/18/16 06:09 Glucose 92 mg/dL (70-105) 12/18/16 06:09 Hemoglobin A1c % 5.1 % (4.0-6.0) 12/15/16 07:44 Calcium 8.8 mg/dL (8.6-10.3) 12/18/16 06:09 Total Bilirubin 3.1 mg/dL (0.3-1.0) H 12/18/16 06:09 AST 15 U/L (13-39) 12/18/16 06:09 ALT 8 U/L (7-52) 12/18/16 06:09 Alkaline Phosphatase 77 U/L (34-104) 12/18/16 06:09 Ammonia 34 umol/L (16-53) 12/17/16 06:42 Total Protein 5.2 gm/dL (6.0-8.3) L 12/18/16 06:09 Albumin 2.5 gm/dL (3.7-5.3) L 12/18/16 06:09 Globulin 2.7 gm/dL 12/18/16 06:09 Albumin/Globulin Ratio 0.9 (1.0-1.8) L 12/18/16 06:09 Triglycerides 146 mg/dL (<150) 12/15/16 07:44 Cholesterol 67 mg/dL (<200) 12/15/16 07:44 LDL Cholesterol Direct 18 mg/dL (75-193) L 12/15/16 07:44 HDL Cholesterol 7 mg/dL (23-92) L 12/15/16 07:44 TSH 1.39 uIU/ml (0.34-5.60) 12/15/16 07:44 Random Vancomycin 22.7 ug/mL (5.0-40.0) 12/18/16 06:09 - Physical Exam Vitals and I&O: Vital Signs Temp 98.9 F 12/18/16 04:00 Pulse 113 12/18/16 09:45 Resp 19 12/18/16 04:00 BP 132/83 12/18/16 09:45 Pulse Ox 96 12/18/16 04:00 Intake & Output 12/17/16 12/18/16 12/18/16 18:59 06:59 18:59 Intake Total 50 300 Balance 50 300 Weight (lbs) 76.657 kg 85.139 kg Intake: Intake, IV Amount 50 250 Clindamycin 600mg/50mL 50 50 600 mg In 50 ml @ 100 mls /hr IV Q8HR [facility] Rx#: [id number] Piperacillin Sodium/ 100 Tazobact 2.25 gm In Sodium Chloride 0.9% 50 ml @ 100 mls/hr IV Q8HR [facility] Rx#:[id number] Vancomycin HCl 500 mg In 100 Sodium Chloride 0.9% 100 ml @ 100 mls/hr IV 2100 [facility] Rx#:[id number] Oral 50 Other: # Bowel Movements 1 Stool Characteristics Soft Soft Active Medications: Current Medications Acyclovir (Zovirax) 400 mg PO DAILY ESMER Stop: 02/13/17 08:59 Last Admin: 12/18/16 09:43 Dose: 400 mg Amiodarone HCl (Cordarone) 200 mg PO BID ESMER Stop: 02/13/17 16:59 Last Admin: 12/18/16 09:44 Dose: 200 mg Calcitriol (Rocaltrol) 0.25 mcg PO DAILY ESMER Stop: 02/12/17 08:59 Last Admin: 12/18/16 09:43 Dose: 0.25 mcg Calcium Carbonate (Calcium Carb) 600 mg PO TID ESMER Stop: 02/12/17 08:59 Last Admin: 12/18/16 09:48 Dose: 600 mg Folic Acid (Folate) 1 mg PO DAILY ESMER Stop: 02/12/17 08:59 Last Admin: 12/18/16 09:44 Dose: 1 mg Gabapentin (Neurontin) 300 mg PO DAILY ESMER Stop: 02/12/17 08:59 Last Admin: 12/18/16 09:45 Dose: 300 mg Clindamycin Phosphate (Cleocin Pb) 600 mg in 50 mls @ 100 mls/hr IV Q8HR [facility] Stop: 02/13/17 04:59 Last Admin: 12/18/16 05:18 Dose: 100 mls/hr Piperacillin Sod/Tazobactam (Sod 2.25 gm/ Sodium Chloride) 50 mls @ 100 mls/hr IV Q8HR [facility]SMER Stop: 02/13/17 04:59 Last Admin: 12/18/16 06:02 Dose: 100 mls/hr Lactobacillus Rhamnosus (Culturelle) 1 each PO DAILY ESMER Stop: 02/14/17 08:59 Last Admin: 12/18/16 09:46 Dose: 1 each Lactulose (Cephulac) 15 gm PO DAILY ESMER Stop: 02/13/17 16:14 Last Admin: 12/18/16 09:46 Dose: 15 gm Miscellaneous (Clinical Monitoring) 1 ea DAILY PRN PRN Reason: RENAL Stop: 02/12/17 11:19 Miscellaneous (Vancomycin Iv Per Pharmacy) 1 ea PRN ESMER Stop: 02/13/17 00:14 Miscellaneous (Probiotic Screen) 1 ea PRN PRN PRN Reason: PROTOCOL Stop: 02/13/17 09:47 Morphine Sulfate (Morphine) 2 mg IVP Q6H PRN PRN Reason: Pain (Moderate) Stop: 02/12/17 00:34 Last Admin: 12/17/16 21:47 Dose: 2 mg Pantoprazole Sodium (Protonix) 40 mg PO DAILY ESMER Stop: 02/12/17 08:59 Last Admin: 12/18/16 09:43 Dose: 40 mg Propranolol HCl (Inderal) 20 mg PO TID [facility] Stop: 02/12/17 08:59 Last Admin: 12/18/16 09:45 Dose: 20 mg Rifaximin (Xifaxan) 200 mg PO Q12H [facility] Stop: 02/12/17 08:59 Last Admin: 12/18/16 09:43 Dose: 200 mg Sevelamer Carbonate (Renvela) 800 mg PO TID [facility] Stop: 02/12/17 08:59 Last Admin: 12/18/16 10:48 Dose: 800 mg Tramadol HCl (Ultram) 50 mg PO Q8H [facility] Stop: 02/12/17 16:59 Last Admin: 12/18/16 00:48 Dose: Not Given Vitamin B Complex/Vit C/Folic Acid (Vitamin B Complex W/Vitamin C) 1 tab PO DAILY [facility] Stop: 02/12/17 08:59 Last Admin: 12/18/16 09:44 Dose: 1 tab General: Alert, Oriented x3, No acute distress HEENT: Atraumatic, PERRLA, EOMI Neck: Supple Cardiovascular: Regular rate, Normal S1, Normal S2 Lungs: Clear to auscultation Abdomen: Bowel sounds Extremities: Edema, no Clubbing, no Cyanosis Skin: Rash (vesicular rash present to the left hip cellulitis) Assessment/Plan - Problem List Patient Problems: All Active Problems Anemia (Acute) D64.9 Cellulitis (Acute) L03.90 Chronic atrial fibrillation (Acute) I48.2 Diabetes mellitus (Acute) E11.9 ESRD (end stage renal disease) on dialysis (Acute) N18.6, Z99.2 Herpes zoster (Acute) B02.9 Left hip pain (Acute) M25.552 BRADLEY (nonalcoholic steatohepatitis) (Acute) K75.81 Peripheral vascular disease (Acute) I73.9 Thrombocytopenia (Acute) D69.6 Nutritional Asmnt/Malnutr-PDOC - Dietary Evaluation Malnutrition Findings (Please click <Entered> for more info): Nutritional Asmnt/Malnutrition Start: 12/15/16 15: 13 Text: Status: Complete Freq: Document 12/15/16 15:13 [facility] (Rec: 12/15/16 15:28 [facility] [id number]) Nutritional Asmnt/Malnutrition Patient General Information Nutritional Screening High Risk Screening Diagnosis Left leg pain, rash suspicious of herpes zoster Pertinent Medical Hx/Surgical Hx CVA, TIA, ESRD on dialysis, DM Subjective Information Pt is a 71-year-old female admitted with chief complaint of pain to left side of hip. Pt was asleep and unarousable to sound. Pt appears overwt with loose skin. RD unable to complete full malnutrition- focused physical assessment. RN Gabby reports that pt feeds self independently. Pt has no teeth but currently tolerating food; RN request for soft foods in case. RD discussed with Dr. Domínguez, texture change approved. Current Diet Order/ Nutrition Support Renal Patient / S.O Indicated Pertinent Medications Rocaltrol, Calcium Carb, Cleocin, Folate, Morphine, Protonix, Renevla, Vitamin B Complex Pertinent Labs (12/14) BUN 45H and Creatinine 5 .8H (increasing), Total Bilrubin 2H, Alkaline Phosphatase 132H, Albumin 2.6L , Ammonia 89H Nutritional Hx/Data Height 1.55 m Height (Calculated Centimeters) 154.9 Current Weight (lbs) 66.224 kg Weight (Calculated Kilograms) 66.2 Weight (Calculated Grams) 98963.5 [place] Body Weight 105 % [place] Body Weight 139 Weight Status Overweight GI Symptoms GI Symptoms None Last BM Difficult in: Chewing Food Allergies No Cultural/Ethnic/[employer] Belief No preferences noted. Skin Integrity/Comment: Jf 17. No skin breakdown. Rash and bruises noted. Current %PO Good (75-100%) Estimated Nutritional Goals BEE in Kcals: Using Current wt Calories/Kcals/Kg Based on current wt 66.4 kg with consideration of dialysis Kcals Calculated 4116-9668 kcals/day (25-30 kcals/kg) Protein: Using Current wt Protein g/kg: Based on current wt 66.4 kg with consideration of dialysis Protein Calculated 80-93 gm/day (1.2-1.4 gm/kg) Fluid: ml Per MD/DO due to renal failure Nutritional Problem 1. Problem Problem Possible chewing difficulty related to Etiology complete edentulism as evidenced by Signs/Symptoms: RN reports. Malnutrition Alert Protein-Calorie Malnutrition N/A Is there a minimum of two criteria No selected? Query Text:Check all the applicable criteria. A minimum of two criteria are recommended for diagnosis of either severe or non-severe malnutrition. Malnutrition Related to Morbid Obesity Malnutrition related to morbid obesity No Intervention/Recommendation Comments 1. Recommend mechanical soft chopped, 90-gram renal diet to better meet estimated nutritional needs. Expected Outcomes/Goals Expected Outcomes/Goals Have pt meet at least 75% of estimated nutritional needs with acceptable tolerance. Physician Parameters for PEM Serum Albumin (g/dl) 2.4 - 3.0 (Moderate)
--- NOTE | 2016-12-18 15:59 | Infectious Disease Prog Note ---
Infectious Disease Subjective - Review of Systems Service Date: 12/18/16 Subjective: patient has no new change, she has same large blister with underlying necrosis. There is no fever. c/o tenderness in her left leg laterally. Infectious Disease Objective - Results Result Diagrams: 12/18/16 06:09 12/18/16 06:09 Recent Labs: Laboratory Last Values WBC 8.8 Th/cmm (4.8-10.8) 12/18/16 06:09 RBC 3.08 Mil/cmm (3.80-5.20) L 12/18/16 06:09 Hgb 10.7 gm/dL (11.7-16.1) L 12/18/16 06:09 Hct 31.5 % (35.0-45.0) L 12/18/16 06:09 MCV 102.3 fl (81-100) H 12/18/16 06:09 MCH 34.7 pg (27.0-31.0) H 12/18/16 06:09 MCHC Differential 33.9 pg (28.0-36.0) 12/18/16 06:09 RDW 17.1 % (11.5-20.0) 12/18/16 06:09 Plt Count 81 Th/cmm (150-400) L 12/18/16 06:09 MPV 10.5 fl 12/18/16 06:09 Neutrophils % INSURANCE POLICY CLERK 12/16/16 05:55 Band Neutrophils % 2 % (0-10) 12/18/16 06:09 Lymphocytes % INSURANCE POLICY CLERK 12/16/16 05:55 Monocytes % INSURANCE POLICY CLERK 12/16/16 05:55 Eosinophils % INSURANCE POLICY CLERK 12/16/16 05:55 Basophils % INSURANCE POLICY CLERK 12/16/16 05:55 Neutrophils (Manual) 82 % (40-80) H 12/18/16 06:09 Lymphocytes 9 % (20-50) L 12/18/16 06:09 Monocytes 6 % (2-10) 12/18/16 06:09 Eosinophils 1 % (0-5) 12/18/16 06:09 Basophils 0 % (0-3) 12/13/16 19:37 Nucleated RBCs 1.0 % (0-0) H 12/18/16 06:09 Platelet Estimate DECREASED PLATELETS (NORMAL) 12/18/16 06:09 Platelet Morphology NORMAL (NORMAL) 12/18/16 06:09 Polychromasia 1+ 12/18/16 06:09 Anisocytosis 1+ 12/17/16 06:42 RBC Morph Micro Appear ABNORMAL (NORMAL) 12/18/16 06:09 PT 14.5 SECONDS (9.5-11.5) H 12/13/16 19:37 INR 1.37 (0.5-1.4) 12/13/16 19:37 PTT (Actin FS) 39.0 SECONDS (26.0-38.0) H 12/13/16 19:37 Sodium 127 mEq/L (136-145) L 12/18/16 06:09 Potassium 3.9 mEq/L (3.5-5.1) 12/18/16 06:09 Chloride 94 mEq/L (98-107) L 12/18/16 06:09 Carbon Dioxide 24.8 mEq/L (21.0-31.0) 12/18/16 06:09 Anion Gap 12.1 (7.0-16.0) 12/18/16 06:09 BUN 35 mg/dL (7-25) H 12/18/16 06:09 Creatinine 4.9 mg/dL (0.6-1.2) H* 12/18/16 06:09 Est GFR ( Amer) TNP 12/18/16 06:09 Est GFR (Non-Af Amer) TNP 12/18/16 06:09 BUN/Creatinine Ratio 7.1 12/18/16 06:09 Glucose 92 mg/dL (70-105) 12/18/16 06:09 Hemoglobin A1c % 5.1 % (4.0-6.0) 12/15/16 07:44 Calcium 8.8 mg/dL (8.6-10.3) 12/18/16 06:09 Total Bilirubin 3.1 mg/dL (0.3-1.0) H 12/18/16 06:09 AST 15 U/L (13-39) 12/18/16 06:09 ALT 8 U/L (7-52) 12/18/16 06:09 Alkaline Phosphatase 77 U/L (34-104) 12/18/16 06:09 Ammonia 34 umol/L (16-53) 12/17/16 06:42 Total Protein 5.2 gm/dL (6.0-8.3) L 12/18/16 06:09 Albumin 2.5 gm/dL (3.7-5.3) L 12/18/16 06:09 Globulin 2.7 gm/dL 12/18/16 06:09 Albumin/Globulin Ratio 0.9 (1.0-1.8) L 12/18/16 06:09 Triglycerides 146 mg/dL (<150) 12/15/16 07:44 Cholesterol 67 mg/dL (<200) 12/15/16 07:44 LDL Cholesterol Direct 18 mg/dL (75-193) L 12/15/16 07:44 HDL Cholesterol 7 mg/dL (23-92) L 12/15/16 07:44 TSH 1.39 uIU/ml (0.34-5.60) 12/15/16 07:44 Random Vancomycin 22.7 ug/mL (5.0-40.0) 12/18/16 06:09 - Physical Exam Vitals and I&O: Vital Signs Temp 98.9 F 12/18/16 04:00 Pulse 72 12/18/16 14:31 Resp 19 12/18/16 04:00 BP 129/51 12/18/16 14:31 Pulse Ox 96 12/18/16 04:00 Intake & Output 12/17/16 12/18/16 12/18/16 18:59 06:59 18:59 Intake Total 50 400 Balance 50 400 Weight (lbs) 76.657 kg 85.139 kg Intake: Intake, IV Amount 50 350 Clindamycin 600mg/50mL 50 100 600 mg In 50 ml @ 100 mls /hr IV Q8HR [facility] Rx#: [id number] Piperacillin Sodium/ 150 Tazobact 2.25 gm In Sodium Chloride 0.9% 50 ml @ 100 mls/hr IV Q8HR [facility] Rx#:[id number] Vancomycin HCl 500 mg In 100 Sodium Chloride 0.9% 100 ml @ 100 mls/hr IV 2100 [facility] Rx#:[id number] Oral 50 Other: # Bowel Movements 1 Stool Characteristics Soft Soft Active Medications: Current Medications Acyclovir (Zovirax) 400 mg PO DAILY ESMER Stop: 02/13/17 08:59 Last Admin: 12/18/16 09:43 Dose: 400 mg Amiodarone HCl (Cordarone) 200 mg PO BID ESMER Stop: 02/13/17 16:59 Last Admin: 12/18/16 09:44 Dose: 200 mg Calcitriol (Rocaltrol) 0.25 mcg PO DAILY ESMER Stop: 02/12/17 08:59 Last Admin: 12/18/16 09:43 Dose: 0.25 mcg Calcium Carbonate (Calcium Carb) 600 mg PO TID ESMER Stop: 02/12/17 08:59 Last Admin: 12/18/16 14:53 Dose: 600 mg Folic Acid (Folate) 1 mg PO DAILY ESMER Stop: 02/12/17 08:59 Last Admin: 12/18/16 09:44 Dose: 1 mg Gabapentin (Neurontin) 300 mg PO DAILY ESMER Stop: 02/12/17 08:59 Last Admin: 12/18/16 09:45 Dose: 300 mg Clindamycin Phosphate (Cleocin Pb) 600 mg in 50 mls @ 100 mls/hr IV Q8HR [facility] Stop: 02/13/17 04:59 Last Admin: 12/18/16 12:53 Dose: 100 mls/hr Piperacillin Sod/Tazobactam (Sod 2.25 gm/ Sodium Chloride) 50 mls @ 100 mls/hr IV Q8HR [facility] Stop: 02/13/17 04:59 Last Admin: 12/18/16 12:53 Dose: 100 mls/hr Lactobacillus Rhamnosus (Culturelle) 1 each PO DAILY ESMER Stop: 02/14/17 08:59 Last Admin: 12/18/16 09:46 Dose: 1 each Lactulose (Cephulac) 15 gm PO DAILY ESMER Stop: 02/13/17 16:14 Last Admin: 12/18/16 09:46 Dose: 15 gm Miscellaneous (Clinical Monitoring) 1 ea MC DAILY PRN PRN Reason: RENAL Stop: 02/12/17 11:19 Miscellaneous (Vancomycin Iv Per Pharmacy) 1 ea MC PRN ESMER Stop: 02/13/17 00:14 Miscellaneous (Probiotic Screen) 1 ea PRN PRN PRN Reason: PROTOCOL Stop: 02/13/17 09:47 Morphine Sulfate (Morphine) 2 mg IVP Q6H PRN PRN Reason: Pain (Moderate) Stop: 02/12/17 00:34 Last Admin: 12/17/16 21:47 Dose: 2 mg Pantoprazole Sodium (Protonix) 40 mg PO DAILY ESMER Stop: 02/12/17 08:59 Last Admin: 12/18/16 09:43 Dose: 40 mg Propranolol HCl (Inderal) 20 mg PO TID ESMER Stop: 02/12/17 08:59 Last Admin: 12/18/16 14:31 Dose: 20 mg Rifaximin (Xifaxan) 200 mg PO Q12H [facility] Stop: 02/12/17 08:59 Last Admin: 12/18/16 09:43 Dose: 200 mg Sevelamer Carbonate (Renvela) 800 mg PO TID ESMER Stop: 02/12/17 08:59 Last Admin: 12/18/16 14:54 Dose: 800 mg Tramadol HCl (Ultram) 50 mg PO Q8H [facility] Stop: 02/12/17 16:59 Last Admin: 12/18/16 14:53 Dose: 50 mg Vitamin B Complex/Vit C/Folic Acid (Vitamin B Complex W/Vitamin C) 1 tab PO DAILY ESMER Stop: 02/12/17 08:59 Last Admin: 12/18/16 09:44 Dose: 1 tab General: no acute distress, well developed, well nourished HEENT: atraumatic, normocephalic, PERRLA, EOMI Neck: supple, no thyromegaly Cardiovascular: S1S2, regular Lungs: clear to auscultation bilaterally, clear to percussion Abdomen: soft, bowel sounds, no tender, no distended Extremities: other (left leg has blackening of the skin laterally.), no cyanosis , no clubbing, no edema Neurological: awake, alert, oriented, CN 2-12 intact Skin: intact Infectious Disease Assmt/Plan - Problem List Patient Problems: All Active Problems Anemia (Acute) D64.9 Cellulitis (Acute) L03.90 Chronic atrial fibrillation (Acute) I48.2 Diabetes mellitus (Acute) E11.9 ESRD (end stage renal disease) on dialysis (Acute) N18.6, Z99.2 Herpes zoster (Acute) B02.9 Left hip pain (Acute) M25.552 BRADLEY (nonalcoholic steatohepatitis) (Acute) K75.81 Peripheral vascular disease (Acute) I73.9 Thrombocytopenia (Acute) D69.6 - Assessment Assessment: 1. Left leg cellulitis. suspect strep versus staph infection, suspect underlying necrosis. 2. ? shingles in thigh. 3. DM2. 4. CKD 5 on HD. - Plan Plan: Continue vanco iv, zosyn, and acyclovir. Discontinue clinda. wound care. Pillo dc to LTAC. Nutritional Asmnt/Malnutr-PDOC - Dietary Evaluation Malnutrition Findings (Please click <Entered> for more info): Nutritional Asmnt/Malnutrition Start: 12/15/16 15: 13 Text: Status: Complete Freq: Document 12/15/16 15:13 [facility] (Rec: 12/15/16 15:28 [facility] [id number]) Nutritional Asmnt/Malnutrition Patient General Information Nutritional Screening High Risk Screening Diagnosis Left leg pain, rash suspicious of herpes zoster Pertinent Medical Hx/Surgical Hx CVA, TIA, ESRD on dialysis, DM Subjective Information Pt is a 71-year-old female admitted with chief complaint of pain to left side of hip. Pt was asleep and unarousable to sound. Pt appears overwt with loose skin. RD unable to complete full malnutrition- focused physical assessment. CHRISTINA Pierre reports that pt feeds self independently. Pt has no teeth but currently tolerating food; RN request for soft foods in case. RD discussed with Dr. Domínguez, texture change approved. Current Diet Order/ Nutrition Support Renal Patient / S.O Indicated Pertinent Medications Rocaltrol, Calcium Carb, Cleocin, Folate, Morphine, Protonix, Renevla, Vitamin B Complex Pertinent Labs (12/14) BUN 45H and Creatinine 5 .8H (increasing), Total Bilrubin 2H, Alkaline Phosphatase 132H, Albumin 2.6L , Ammonia 89H Nutritional Hx/Data Height 1.55 m Height (Calculated Centimeters) 154.9 Current Weight (lbs) 66.224 kg Weight (Calculated Kilograms) 66.2 Weight (Calculated Grams) 55579.5 [place] Body Weight 105 % [place] Body Weight 139 Weight Status Overweight GI Symptoms GI Symptoms None Last BM Difficult in: Chewing Food Allergies No Cultural/Ethnic/Christian Belief No preferences noted. Skin Integrity/Comment: Jf 17. No skin breakdown. Rash and bruises noted. Current %PO Good (75-100%) Estimated Nutritional Goals BEE in Kcals: Using Current wt Calories/Kcals/Kg Based on current wt 66.4 kg with consideration of dialysis Kcals Calculated 3702-5588 kcals/day (25-30 kcals/kg) Protein: Using Current wt Protein g/kg: Based on current wt 66.4 kg with consideration of dialysis Protein Calculated 80-93 gm/day (1.2-1.4 gm/kg) Fluid: ml Per MD/DO due to renal failure Nutritional Problem 1. Problem Problem Possible chewing difficulty related to Etiology complete edentulism as evidenced by Signs/Symptoms: RN reports. Malnutrition Alert Protein-Calorie Malnutrition N/A Is there a minimum of two criteria No selected? Query Text:Check all the applicable criteria. A minimum of two criteria are recommended for diagnosis of either severe or non-severe malnutrition. Malnutrition Related to Morbid Obesity Malnutrition related to morbid obesity No Intervention/Recommendation Comments 1. Recommend mechanical soft chopped, 90-gram renal diet to better meet estimated nutritional needs. Expected Outcomes/Goals Expected Outcomes/Goals Have pt meet at least 75% of estimated nutritional needs with acceptable tolerance. Physician Parameters for PEM Serum Albumin (g/dl) 2.4 - 3.0 (Moderate)
[2016-12-18] MEDS ORDERED: Sodium Chloride 0.9% 250 ML IV ONE ×2 (20:17→20:20)
--- NOTE | 2016-12-18 21:04 | General Progress Note ---
Subjective - Review of Systems Service Date: 12/18/16 Subjective: ER Physician Note: Responded to Rapid Response immediately when I was notified at about 1956. On arrival, pt was alert and responsive to voice. Nursing staff related that pt was noticed to become progressively less responsive since this afternoon. Pt has not been taking oral fluid at all over one day. No N/V/D. No fever. Pt is a 71 y/o female with h/o chronic atrial fibrillation and ESRD on hemodialysis. On exam: VS P90 R 18 BP 111/42 O2 saturation 99-100% on O2 supplementation. Accuchek 89 HEENT Mucous membrane is dry. Otherwise, unremarkable. Neck Supple, no JVD, Carotid 2+/2+ COR slightly irregular with HR 96. Lungs clear Abdomen obese but soft, nontender, normoactive BS x 4, no R/G, no palpable mass or HSM detected. Ext no c/c/e. Neuro Alert and responsive to voice and tactile stimuli. Spontaneous movements noticed in all 4 extremities. Pt does not cooperate for full neurological exam. Stat 12 lead EKG: Atrial fibrillation with VR 107. Cannot r/o old AMI, age undetermined. No acute ischemic changes. Impression: Progressive decline in responsiveness. Consider ECF depletion. Pt has not had oral fluid intake for over one day by hx. Her insensitive fluid loss led to initial hypotension with tachycardia. Plan: Normal saline 250 ml IV bolus. IV fluid is to be given carefully as pt has ESRD. Pt is now hemodynamcially stable. Case was discussed with pt's attending physician Dr. Sourav Domínguez at about 2026 with pertinent H & P, EKG findings reviewed. He concurred with transferring pt to ICU. He resumed care of pt from here on. Case was signed off to Dr. Domínguez for continued care at about 2034. Objective - Results Result Diagrams: 12/18/16 06:09 12/18/16 06:09 Recent Labs: Laboratory Last Values WBC 8.8 Th/cmm (4.8-10.8) 12/18/16 06:09 RBC 3.08 Mil/cmm (3.80-5.20) L 12/18/16 06:09 Hgb 10.7 gm/dL (11.7-16.1) L 12/18/16 06:09 Hct 31.5 % (35.0-45.0) L 12/18/16 06:09 MCV 102.3 fl (81-100) H 12/18/16 06:09 MCH 34.7 pg (27.0-31.0) H 12/18/16 06:09 MCHC Differential 33.9 pg (28.0-36.0) 12/18/16 06:09 RDW 17.1 % (11.5-20.0) 12/18/16 06:09 Plt Count 81 Th/cmm (150-400) L 12/18/16 06:09 MPV 10.5 fl 12/18/16 06:09 Neutrophils % [employer] T[employer]OR 12/16/16 05:55 Band Neutrophils % 2 % (0-10) 12/18/16 06:09 Lymphocytes % [employer] T[employer]OR 12/16/16 05:55 Monocytes % [employer]ISTICS TUTOR 12/16/16 05:55 Eosinophils % [employer]ISTICS TUTOR 12/16/16 05:55 Basophils % [employer]ISTICS TUTOR 12/16/16 05:55 Neutrophils (Manual) 82 % (40-80) H 12/18/16 06:09 Lymphocytes 9 % (20-50) L 12/18/16 06:09 Monocytes 6 % (2-10) 12/18/16 06:09 Eosinophils 1 % (0-5) 12/18/16 06:09 Basophils 0 % (0-3) 12/13/16 19:37 Nucleated RBCs 1.0 % (0-0) H 12/18/16 06:09 Platelet Estimate DECREASED PLATELETS (NORMAL) 12/18/16 06:09 Platelet Morphology NORMAL (NORMAL) 12/18/16 06:09 Polychromasia 1+ 12/18/16 06:09 Anisocytosis 1+ 12/17/16 06:42 RBC Morph Micro Appear ABNORMAL (NORMAL) 12/18/16 06:09 PT 14.5 SECONDS (9.5-11.5) H 12/13/16 19:37 INR 1.37 (0.5-1.4) 12/13/16 19:37 PTT (Actin FS) 39.0 SECONDS (26.0-38.0) H 12/13/16 19:37 Sodium 127 mEq/L (136-145) L 12/18/16 06:09 Potassium 3.9 mEq/L (3.5-5.1) 12/18/16 06:09 Chloride 94 mEq/L (98-107) L 12/18/16 06:09 Carbon Dioxide 24.8 mEq/L (21.0-31.0) 12/18/16 06:09 Anion Gap 12.1 (7.0-16.0) 12/18/16 06:09 BUN 35 mg/dL (7-25) H 12/18/16 06:09 Creatinine 4.9 mg/dL (0.6-1.2) H* 12/18/16 06:09 Est GFR ( Amer) TNP 12/18/16 06:09 Est GFR (Non-Af Amer) TNP 12/18/16 06:09 BUN/Creatinine Ratio 7.1 12/18/16 06:09 Glucose 92 mg/dL (70-105) 12/18/16 06:09 POC Glucose 89 MG/DL (70 - 105) 12/18/16 19:57 Hemoglobin A1c % 5.1 % (4.0-6.0) 12/15/16 07:44 Calcium 8.8 mg/dL (8.6-10.3) 12/18/16 06:09 Total Bilirubin 3.1 mg/dL (0.3-1.0) H 12/18/16 06:09 AST 15 U/L (13-39) 12/18/16 06:09 ALT 8 U/L (7-52) 12/18/16 06:09 Alkaline Phosphatase 77 U/L (34-104) 12/18/16 06:09 Ammonia 34 umol/L (16-53) 12/17/16 06:42 Total Protein 5.2 gm/dL (6.0-8.3) L 12/18/16 06:09 Albumin 2.5 gm/dL (3.7-5.3) L 12/18/16 06:09 Globulin 2.7 gm/dL 12/18/16 06:09 Albumin/Globulin Ratio 0.9 (1.0-1.8) L 12/18/16 06:09 Triglycerides 146 mg/dL (<150) 12/15/16 07:44 Cholesterol 67 mg/dL (<200) 12/15/16 07:44 LDL Cholesterol Direct 18 mg/dL (75-193) L 12/15/16 07:44 HDL Cholesterol 7 mg/dL (23-92) L 12/15/16 07:44 TSH 1.39 uIU/ml (0.34-5.60) 12/15/16 07:44 Random Vancomycin 22.7 ug/mL (5.0-40.0) 12/18/16 06:09 - Physical Exam Vitals and I&O: Vital Signs Temp 97.7 F 12/18/16 14:00 Pulse 97 12/18/16 18:27 Resp 16 12/18/16 14:00 BP 129/51 12/18/16 14:31 Pulse Ox 94 12/18/16 14:00 Active Medications: Current Medications Acyclovir (Zovirax) 400 mg PO DAILY [facility] Stop: 02/13/17 08:59 Last Admin: 12/18/16 09:43 Dose: 400 mg Amiodarone HCl (Cordarone) 200 mg PO BID [facility] Stop: 02/13/17 16:59 Last Admin: 12/18/16 18:27 Dose: 200 mg Calcitriol (Rocaltrol) 0.25 mcg PO DAILY [facility] Stop: 02/12/17 08:59 Last Admin: 12/18/16 09:43 Dose: 0.25 mcg Calcium Carbonate (Calcium Carb) 600 mg PO TID [facility] Stop: 02/12/17 08:59 Last Admin: 12/18/16 14:53 Dose: 600 mg Folic Acid (Folate) 1 mg PO DAILY [facility] Stop: 02/12/17 08:59 Last Admin: 12/18/16 09:44 Dose: 1 mg Gabapentin (Neurontin) 300 mg PO DAILY [facility] Stop: 02/12/17 08:59 Last Admin: 12/18/16 09:45 Dose: 300 mg Piperacillin Sod/Tazobactam (Sod 2.25 gm/ Sodium Chloride) 50 mls @ 100 mls/hr IV Q8HR [facility] Stop: 02/13/17 04:59 Last Admin: 12/18/16 12:53 Dose: 100 mls/hr Lactobacillus Rhamnosus (Culturelle) 1 each PO DAILY [facility] Stop: 02/14/17 08:59 Last Admin: 12/18/16 09:46 Dose: 1 each Lactulose (Cephulac) 15 gm PO DAILY [facility] Stop: 02/13/17 16:14 Last Admin: 12/18/16 09:46 Dose: 15 gm Miscellaneous (Clinical Monitoring) 1 ea MC DAILY PRN PRN Reason: RENAL Stop: 02/12/17 11:19 Miscellaneous (Vancomycin Iv Per Pharmacy) 1 ea MC PRN [facility] Stop: 02/13/17 00:14 Miscellaneous (Probiotic Screen) 1 ea MC PRN PRN PRN Reason: PROTOCOL Stop: 02/13/17 09:47 Morphine Sulfate (Morphine) 2 mg IVP Q6H PRN PRN Reason: Pain (Moderate) Stop: 02/12/17 00:34 Last Admin: 12/17/16 21:47 Dose: 2 mg Pantoprazole Sodium (Protonix) 40 mg PO DAILY [facility] Stop: 02/12/17 08:59 Last Admin: 12/18/16 09:43 Dose: 40 mg Propranolol HCl (Inderal) 20 mg PO TID [facility] Stop: 02/12/17 08:59 Last Admin: 12/18/16 14:31 Dose: 20 mg Rifaximin (Xifaxan) 200 mg PO Q12H [facility] Stop: 02/12/17 08:59 Last Admin: 12/18/16 09:43 Dose: 200 mg Sevelamer Carbonate (Renvela) 800 mg PO TID [facility] Stop: 02/12/17 08:59 Last Admin: 12/18/16 14:54 Dose: 800 mg Tramadol HCl (Ultram) 50 mg PO Q8H [facility] Stop: 02/12/17 16:59 Last Admin: 12/18/16 18:28 Dose: 50 mg Vitamin B Complex/Vit C/Folic Acid (Vitamin B Complex W/Vitamin C) 1 tab PO DAILY [facility] Stop: 02/12/17 08:59 Last Admin: 12/18/16 09:44 Dose: 1 tab General: Alert, Oriented x3, No acute distress HEENT: Atraumatic, PERRLA, EOMI Neck: Supple Cardiovascular: Regular rate, Normal S1, Normal S2 Lungs: Clear to auscultation Abdomen: Bowel sounds Extremities: Edema, no Clubbing, no Cyanosis Skin: Rash (vesicular rash present to the left hip cellulitis) Assessment/Plan - Problem List Patient Problems: All Active Problems Anemia (Acute) D64.9 Cellulitis (Acute) L03.90 Chronic atrial fibrillation (Acute) I48.2 Diabetes mellitus (Acute) E11.9 ESRD (end stage renal disease) on dialysis (Acute) N18.6, Z99.2 Herpes zoster (Acute) B02.9 Left hip pain (Acute) M25.552 BRADLEY (nonalcoholic steatohepatitis) (Acute) K75.81 Peripheral vascular disease (Acute) I73.9 Thrombocytopenia (Acute) D69.6
[2016-12-18] MEDS ORDERED: cloNIDine 0.1 mg/24 hr Tdm TD ONE (22:17)
[2016-12-18] MEDS ORDERED: cloNIDine 0.2 mg/24 hr Tdm TD ONE (22:49)
[2016-12-18 23:51] LABS: pH 7.37 (7.35-7.45)
[2016-12-18 23:52] LABS: ABG SOURCE Arterial; ALLEN TEST P; BE(B) 1.4 mEq/L (-3.0-3.0); FIO2 32
[2016-12-19] MEDS ORDERED: Albumin 5% 12.5gm/250mL 12.5 GM/250 ML BTL IV ONE (00:56)
[2016-12-19] MEDS ORDERED: Norepinephrine 4 mg/4mL Vial IV ONE (01:25)
[2016-12-19] MEDS: Piperacillin/Tazobact 2.25 gm in 0.9% NS 50 ML IV SCH ×3 (04:29→20:37)
[2016-12-19 06:24] LABS: % BASOPHILS 0.2 % (0.0-2.0); % EOSINOPHILS 0.4 % (0.0-5.0); % LYMPHOCYTES 4.3 % (20.0-50.0); % MONOCYTES 9.8 % (2.0-10.0); % NEUTROPHILS 85.3 % (40.0-80.0); HEMATOCRIT 32.4 % (35.0-45.0); HEMOGLOBIN 10.9 gm/dL (11.7-16.1); MEAN CELL VOLUME 101.8 fl (81-100); MEAN CORPUSCULAR HEMOGLOBIN 34.3 pg (27.0-31.0); MEAN CORPUSCULAR HGB CONC 33.7 pg (28.0-36.0); MEAN PLATELET VOLUME 9.8 fl; NEUTROPHILE ABSOLUTE 7.6 Th/cmm (1.8-8.0); PLATELET COUNT 105 Th/cmm (150-400); RED BLOOD COUNT 3.18 Mil/cmm (3.80-5.20); RED CELL DISTRIBUTION WIDTH 17.1 % (11.5-20.0); WHITE BLOOD COUNT 8.9 Th/cmm (4.8-10.8)
[2016-12-19 06:26] LABS: ALKALINE PHOSPHATASE 63 U/L (34-104); BILIRUBIN,TOTAL 3.3 mg/dL (0.3-1.0); BUN - UREA NITROGEN 47 mg/dL (7-25); BUN/CREATININE RATIO 8.4; CALCIUM SERUM 8.8 mg/dL (8.6-10.3); CARBON DIOXIDE 22.4 mEq/L (21.0-31.0); CHLORIDE 95 mEq/L (98-107); GLUCOSE 90 mg/dL (70-105); POTASSIUM SERUM 4.4 mEq/L (3.5-5.1); SGOT 16 U/L (13-39); SGPT/ALT 8 U/L (7-52); SODIUM SERUM 130 mEq/L (136-145)
[2016-12-19 06:46] LABS: CREATININE - SERUM 5.6 mg/dL (0.6-1.2)
[2016-12-19] MEDS ORDERED: Sodium Chloride 0.9% 250 ML IV ONE (09:00)
--- NOTE | 2016-12-19 09:01 | General Progress Note ---
Subjective - Review of Systems Service Date: 12/19/16 Subjective: transferred to ICU last night due to change in mental status. increased fatigue and weakness. hypotensive. currently on Levofed. Patient given a bolus of NS to maintain blood pressure. Objective - Results Result Diagrams: 12/19/16 05:25 12/19/16 05:25 Recent Labs: Laboratory Last Values WBC 8.9 Th/cmm (4.8-10.8) 12/19/16 05:25 RBC 3.18 Mil/cmm (3.80-5.20) L 12/19/16 05:25 Hgb 10.9 gm/dL (11.7-16.1) L 12/19/16 05:25 Hct 32.4 % (35.0-45.0) L 12/19/16 05:25 MCV 101.8 fl (81-100) H 12/19/16 05:25 MCH 34.3 pg (27.0-31.0) H 12/19/16 05:25 MCHC Differential 33.7 pg (28.0-36.0) 12/19/16 05:25 RDW 17.1 % (11.5-20.0) 12/19/16 05:25 Plt Count 105 Th/cmm (150-400) L D 12/19/16 05:25 MPV 9.8 fl 12/19/16 05:25 Neutrophils % 85.3 % (40.0-80.0) H 12/19/16 05:25 Band Neutrophils % 2 % (0-10) 12/18/16 06:09 Lymphocytes % 4.3 % (20.0-50.0) L 12/19/16 05:25 Monocytes % 9.8 % (2.0-10.0) 12/19/16 05:25 Eosinophils % 0.4 % (0.0-5.0) 12/19/16 05:25 Basophils % 0.2 % (0.0-2.0) 12/19/16 05:25 Neutrophils (Manual) 82 % (40-80) H 12/18/16 06:09 Lymphocytes 9 % (20-50) L 12/18/16 06:09 Monocytes 6 % (2-10) 12/18/16 06:09 Eosinophils 1 % (0-5) 12/18/16 06:09 Basophils 0 % (0-3) 12/13/16 19:37 Nucleated RBCs 1.0 % (0-0) H 12/18/16 06:09 Platelet Estimate DECREASED PLATELETS (NORMAL) 12/18/16 06:09 Platelet Morphology NORMAL (NORMAL) 12/18/16 06:09 Polychromasia 1+ 12/18/16 06:09 Anisocytosis 1+ 12/17/16 06:42 RBC Morph Micro Appear ABNORMAL (NORMAL) 12/18/16 06:09 PT 14.5 SECONDS (9.5-11.5) H 12/13/16 19:37 INR 1.37 (0.5-1.4) 12/13/16 19:37 PTT (Actin FS) 39.0 SECONDS (26.0-38.0) H 12/13/16 19:37 Specimen Source Arterial 12/18/16 22:48 Sample Site R-B 12/18/16 22:48 pH 7.37 (7.35-7.45) 12/18/16 22:48 pCO2 47.0 mmHg (35.0-45.0) H 12/18/16 22:48 pO2 85.0 mmHg (80.0-100.0) 12/18/16 22:48 HCO3 26.0 mEq/L (20.0-26.0) 12/18/16 22:48 Base Excess 1.4 mEq/L (-3.0-3.0) 12/18/16 22:48 O2 Saturation 96.0 % (92.0-100.0) 12/18/16 22:48 Mario Test P 12/18/16 22:48 Vent Rate NA 12/18/16 22:48 Inspired O2 32 12/18/16 22:48 Tidal Volume NA 12/18/16 22:48 PEEP NA 12/18/16 22:48 Pressure (ins/psv/peep) NA 12/18/16 22:48 Critical Value RPINEIRA 12/18/16 22:48 Sodium 130 mEq/L (136-145) L 12/19/16 05:25 Potassium 4.4 mEq/L (3.5-5.1) 12/19/16 05:25 Chloride 95 mEq/L (98-107) L 12/19/16 05:25 Carbon Dioxide 22.4 mEq/L (21.0-31.0) 12/19/16 05:25 Anion Gap 17.0 (7.0-16.0) H 12/19/16 05:25 BUN 47 mg/dL (7-25) H 12/19/16 05:25 Creatinine 5.6 mg/dL (0.6-1.2) H* 12/19/16 05:25 Est GFR ( Amer) TNP 12/19/16 05:25 Est GFR (Non-Af Amer) TNP 12/19/16 05:25 BUN/Creatinine Ratio 8.4 12/19/16 05:25 Glucose 90 mg/dL (70-105) 12/19/16 05:25 POC Glucose 89 MG/DL (70 - 105) 12/18/16 19:57 Hemoglobin A1c % 5.1 % (4.0-6.0) 12/15/16 07:44 Calcium 8.8 mg/dL (8.6-10.3) 12/19/16 05:25 Total Bilirubin 3.3 mg/dL (0.3-1.0) H 12/19/16 05:25 AST 16 U/L (13-39) 12/19/16 05:25 ALT 8 U/L (7-52) 12/19/16 05:25 Alkaline Phosphatase 63 U/L (34-104) 12/19/16 05:25 Ammonia 55 umol/L (16-53) H 12/19/16 05:25 Total Protein 5.1 gm/dL (6.0-8.3) L 12/19/16 05:25 Albumin 2.6 gm/dL (3.7-5.3) L 12/19/16 05:25 Globulin 2.5 gm/dL 12/19/16 05:25 Albumin/Globulin Ratio 1.0 (1.0-1.8) 12/19/16 05:25 Triglycerides 146 mg/dL (<150) 12/15/16 07:44 Cholesterol 67 mg/dL (<200) 12/15/16 07:44 LDL Cholesterol Direct 18 mg/dL (75-193) L 12/15/16 07:44 HDL Cholesterol 7 mg/dL (23-92) L 12/15/16 07:44 TSH 1.39 uIU/ml (0.34-5.60) 12/15/16 07:44 Random Vancomycin 22.7 ug/mL (5.0-40.0) 12/18/16 06:09 - Physical Exam Vitals and I&O: Vital Signs Temp 97.6 F 12/19/16 04:00 Pulse 111 12/19/16 07:05 Resp 15 12/19/16 06:48 BP 74/49 12/19/16 07:05 Pulse Ox 99 12/19/16 06:48 Intake & Output 12/18/16 12/19/16 12/19/16 18:59 06:59 18:59 Intake Total 50 185.563 18.732 Output Total 0 Balance 50 185.563 18.732 Weight (lbs) 84.822 kg 84.595 kg Intake: Intake, IV Amount 50 155.563 18.732 Norepinephrine 4 mg In 55.563 18.732 Dextrose 5% 250 ml @ 5 MCG/MIN 19.05 mls/hr IV TITR PRN Rx#:[id number] Piperacillin Sodium/ 50 100 Tazobact 2.25 gm In Sodium Chloride 0.9% 50 ml @ 100 mls/hr IV Q8HR [facility] Rx#:[id number] Oral 30 Output: Urine 0 Other: # Bowel Movements 0 Stool Characteristics Soft Active Medications: Current Medications Acyclovir (Zovirax) 400 mg PO DAILY [facility] Stop: 02/13/17 08:59 Last Admin: 12/18/16 09:43 Dose: 400 mg Amiodarone HCl (Cordarone) 200 mg PO BID [facility] Stop: 02/13/17 16:59 Last Admin: 12/18/16 18:27 Dose: 200 mg Calcitriol (Rocaltrol) 0.25 mcg PO DAILY [facility] Stop: 02/12/17 08:59 Last Admin: 12/18/16 09:43 Dose: 0.25 mcg Calcium Carbonate (Calcium Carb) 600 mg PO TID [facility] Stop: 02/12/17 08:59 Last Admin: 12/18/16 20:55 Dose: 600 mg Folic Acid (Folate) 1 mg PO DAILY [facility] Stop: 02/12/17 08:59 Last Admin: 12/18/16 09:44 Dose: 1 mg Gabapentin (Neurontin) 300 mg PO DAILY [facility] Stop: 02/12/17 08:59 Last Admin: 12/18/16 09:45 Dose: 300 mg Piperacillin Sod/Tazobactam (Sod 2.25 gm/ Sodium Chloride) 50 mls @ 100 mls/hr IV Q8HR [facility] Stop: 02/13/17 04:59 Last Infusion: 12/19/16 04:59 Dose: Infused Norepinephrine Bitartrate 4 mg (/ Dextrose) 254 mls @ 19.05 mls/hr IV TITR PRN ; Protocol; 5 MCG/MIN PRN Reason: BP MAINTENANCE (PER PROTOCOL) Stop: 02/17/17 00:56 Last Titration: 12/19/16 08:04 Dose: 0 mcg/min, 0 mls/hr Vancomycin HCl 1 gm/ Sodium (Chloride) 250 mls @ 165 mls/hr IV ONCE ONE Stop: 12/19/16 14:30 Lactobacillus Rhamnosus (Culturelle) 1 each PO DAILY [facility] Stop: 02/14/17 08:59 Last Admin: 12/18/16 09:46 Dose: 1 each Lactulose (Cephulac) 15 gm PO DAILY [facility] Stop: 02/13/17 16:14 Last Admin: 12/18/16 09:46 Dose: 15 gm Miscellaneous (Clinical Monitoring) 1 ea MC DAILY PRN PRN Reason: RENAL Stop: 02/12/17 11:19 Miscellaneous (Vancomycin Iv Per Pharmacy) 1 ea MC PRN [facility] Stop: 02/13/17 00:14 Miscellaneous (Probiotic Screen) 1 ea PRN PRN PRN Reason: PROTOCOL Stop: 02/13/17 09:47 Morphine Sulfate (Morphine) 2 mg IVP Q6H PRN PRN Reason: Pain (Moderate) Stop: 02/12/17 00:34 Last Admin: 12/17/16 21:47 Dose: 2 mg Pantoprazole Sodium (Protonix) 40 mg PO DAILY [facility] Stop: 02/12/17 08:59 Last Admin: 12/18/16 09:43 Dose: 40 mg Propranolol HCl (Inderal) 20 mg PO TID [facility] Stop: 02/12/17 08:59 Last Admin: 12/18/16 20:57 Dose: Not Given Rifaximin (Xifaxan) 200 mg PO Q12H [facility] Stop: 02/12/17 08:59 Last Admin: 12/18/16 20:55 Dose: 200 mg Sevelamer Carbonate (Renvela) 800 mg PO TID [facility] Stop: 02/12/17 08:59 Last Admin: 12/18/16 21:01 Dose: 800 mg Tramadol HCl (Ultram) 50 mg PO Q8H [facility] Stop: 02/12/17 16:59 Last Admin: 12/19/16 01:07 Dose: Not Given Vitamin B Complex/Vit C/Folic Acid (Vitamin B Complex W/Vitamin C) 1 tab PO DAILY [facility] Stop: 02/12/17 08:59 Last Admin: 12/18/16 09:44 Dose: 1 tab General: Alert, Oriented x3, No acute distress HEENT: Atraumatic, PERRLA, EOMI Neck: Supple Cardiovascular: Regular rate, Normal S1, Normal S2 Lungs: Clear to auscultation Abdomen: Bowel sounds Extremities: Edema, no Clubbing, no Cyanosis Skin: Rash (vesicular rash present to the left hip cellulitis) Assessment/Plan - Problem List Patient Problems: All Active Problems Anemia (Acute) D64.9 Cellulitis (Acute) L03.90 Chronic atrial fibrillation (Acute) I48.2 Diabetes mellitus (Acute) E11.9 ESRD (end stage renal disease) on dialysis (Acute) N18.6, Z99.2 Herpes zoster (Acute) B02.9 Left hip pain (Acute) M25.552 BRADLEY (nonalcoholic steatohepatitis) (Acute) K75.81 Peripheral vascular disease (Acute) I73.9 Thrombocytopenia (Acute) D69.6 - Assessment Assessment: ALOC Encephalopathy ... will order CT head, neuro consult left leg pain cellulitis herpes zoster End Stage Renal Disease on HD Diabetes Mellitus Chronic Atrial Fibrillation Thrombocytopenia Anemia PVD BRADLEY sepsis - Plan Plan: eft leg pain cellulitis herpes zoster End Stage Renal Disease on HD Diabetes Mellitus Chronic Atrial Fibrillation Thrombocytopenia Anemia PVD BRADLEY Nutritional Asmnt/Malnutr-PDOC - Dietary Evaluation Malnutrition Findings (Please click <Entered> for more info): Nutritional Asmnt/Malnutrition Start: 12/15/16 15: 13 Text: Status: Complete Freq: Document 12/15/16 15:13 [facility] (Rec: 12/15/16 15:28 [id number]) Nutritional Asmnt/Malnutrition Patient General Information Nutritional Screening High Risk Screening Diagnosis Left leg pain, rash suspicious of herpes zoster Pertinent Medical Hx/Surgical Hx CVA, TIA, ESRD on dialysis, DM Subjective Information Pt is a 71-year-old female admitted with chief complaint of pain to left side of hip. Pt was asleep and unarousable to sound. Pt appears overwt with loose skin. RD unable to complete full malnutrition- focused physical assessment. CHRISTINA Pierre reports that pt feeds self independently. Pt has no teeth but currently tolerating food; RN request for soft foods in case. RD discussed with Dr. Domínguez, texture change approved. Current Diet Order/ Nutrition Support Renal Patient / S.O Indicated Pertinent Medications Rocaltrol, Calcium Carb, Cleocin, Folate, Morphine, Protonix, Renevla, Vitamin B Complex Pertinent Labs (12/14) BUN 45H and Creatinine 5 .8H (increasing), Total Bilrubin 2H, Alkaline Phosphatase 132H, Albumin 2.6L , Ammonia 89H Nutritional Hx/Data Height 1.55 m Height (Calculated Centimeters) 154.9 Current Weight (lbs) 66.224 kg Weight (Calculated Kilograms) 66.2 Weight (Calculated Grams) 83946.5 [place] Body Weight 105 % [place] Body Weight 139 Weight Status Overweight GI Symptoms GI Symptoms None Last BM Difficult in: Chewing Food Allergies No Cultural/Ethnic/Alevism Belief No preferences noted. Skin Integrity/Comment: Jf 17. No skin breakdown. Rash and bruises noted. Current %PO Good (75-100%) Estimated Nutritional Goals BEE in Kcals: Using Current wt Calories/Kcals/Kg Based on current wt 66.4 kg with consideration of dialysis Kcals Calculated 0905-8675 kcals/day (25-30 kcals/kg) Protein: Using Current wt Protein g/kg: Based on current wt 66.4 kg with consideration of dialysis Protein Calculated 80-93 gm/day (1.2-1.4 gm/kg) Fluid: ml Per MD/DO due to renal failure Nutritional Problem 1. Problem Problem Possible chewing difficulty related to Etiology complete edentulism as evidenced by Signs/Symptoms: RN reports. Malnutrition Alert Protein-Calorie Malnutrition N/A Is there a minimum of two criteria No selected? Query Text:Check all the applicable criteria. A minimum of two criteria are recommended for diagnosis of either severe or non-severe malnutrition. Malnutrition Related to Morbid Obesity Malnutrition related to morbid obesity No Intervention/Recommendation Comments 1. Recommend mechanical soft chopped, 90-gram renal diet to better meet estimated nutritional needs. Expected Outcomes/Goals Expected Outcomes/Goals Have pt meet at least 75% of estimated nutritional needs with acceptable tolerance. Physician Parameters for PEM Serum Albumin (g/dl) 2.4 - 3.0 (Moderate)
--- NOTE | 2016-12-19 11:49 | General Progress Note ---
Subjective - Review of Systems Service Date: 12/19/16 Subjective: Seen on HD this AM, remains on levophed for pressor support. Somewhat labile BPs from 60s off pressors to 200s systolic on pressors Objective - Results Result Diagrams: 12/19/16 05:25 12/19/16 05:25 Recent Labs: Laboratory Last Values WBC 8.9 Th/cmm (4.8-10.8) 12/19/16 05:25 RBC 3.18 Mil/cmm (3.80-5.20) L 12/19/16 05:25 Hgb 10.9 gm/dL (11.7-16.1) L 12/19/16 05:25 Hct 32.4 % (35.0-45.0) L 12/19/16 05:25 MCV 101.8 fl (81-100) H 12/19/16 05:25 MCH 34.3 pg (27.0-31.0) H 12/19/16 05:25 MCHC Differential 33.7 pg (28.0-36.0) 12/19/16 05:25 RDW 17.1 % (11.5-20.0) 12/19/16 05:25 Plt Count 105 Th/cmm (150-400) L D 12/19/16 05:25 MPV 9.8 fl 12/19/16 05:25 Neutrophils % 85.3 % (40.0-80.0) H 12/19/16 05:25 Band Neutrophils % 2 % (0-10) 12/18/16 06:09 Lymphocytes % 4.3 % (20.0-50.0) L 12/19/16 05:25 Monocytes % 9.8 % (2.0-10.0) 12/19/16 05:25 Eosinophils % 0.4 % (0.0-5.0) 12/19/16 05:25 Basophils % 0.2 % (0.0-2.0) 12/19/16 05:25 Neutrophils (Manual) 82 % (40-80) H 12/18/16 06:09 Lymphocytes 9 % (20-50) L 12/18/16 06:09 Monocytes 6 % (2-10) 12/18/16 06:09 Eosinophils 1 % (0-5) 12/18/16 06:09 Basophils 0 % (0-3) 12/13/16 19:37 Nucleated RBCs 1.0 % (0-0) H 12/18/16 06:09 Platelet Estimate DECREASED PLATELETS (NORMAL) 12/18/16 06:09 Platelet Morphology NORMAL (NORMAL) 12/18/16 06:09 Polychromasia 1+ 12/18/16 06:09 Anisocytosis 1+ 12/17/16 06:42 RBC Morph Micro Appear ABNORMAL (NORMAL) 12/18/16 06:09 PT 14.5 SECONDS (9.5-11.5) H 12/13/16 19:37 INR 1.37 (0.5-1.4) 12/13/16 19:37 PTT (Actin FS) 39.0 SECONDS (26.0-38.0) H 12/13/16 19:37 Specimen Source Arterial 12/18/16 22:48 Sample Site R-B 12/18/16 22:48 pH 7.37 (7.35-7.45) 12/18/16 22:48 pCO2 47.0 mmHg (35.0-45.0) H 12/18/16 22:48 pO2 85.0 mmHg (80.0-100.0) 12/18/16 22:48 HCO3 26.0 mEq/L (20.0-26.0) 12/18/16 22:48 Base Excess 1.4 mEq/L (-3.0-3.0) 12/18/16 22:48 O2 Saturation 96.0 % (92.0-100.0) 12/18/16 22:48 Mario Test P 12/18/16 22:48 Vent Rate NA 12/18/16 22:48 Inspired O2 32 12/18/16 22:48 Tidal Volume NA 12/18/16 22:48 PEEP NA 12/18/16 22:48 Pressure (ins/psv/peep) NA 12/18/16 22:48 Critical Value RPINEIRA 12/18/16 22:48 Sodium 130 mEq/L (136-145) L 12/19/16 05:25 Potassium 4.4 mEq/L (3.5-5.1) 12/19/16 05:25 Chloride 95 mEq/L (98-107) L 12/19/16 05:25 Carbon Dioxide 22.4 mEq/L (21.0-31.0) 12/19/16 05:25 Anion Gap 17.0 (7.0-16.0) H 12/19/16 05:25 BUN 47 mg/dL (7-25) H 12/19/16 05:25 Creatinine 5.6 mg/dL (0.6-1.2) H* 12/19/16 05:25 Est GFR ( Amer) TNP 12/19/16 05:25 Est GFR (Non-Af Amer) TNP 12/19/16 05:25 BUN/Creatinine Ratio 8.4 12/19/16 05:25 Glucose 90 mg/dL (70-105) 12/19/16 05:25 POC Glucose 89 MG/DL (70 - 105) 12/18/16 19:57 Hemoglobin A1c % 5.1 % (4.0-6.0) 12/15/16 07:44 Calcium 8.8 mg/dL (8.6-10.3) 12/19/16 05:25 Total Bilirubin 3.3 mg/dL (0.3-1.0) H 12/19/16 05:25 AST 16 U/L (13-39) 12/19/16 05:25 ALT 8 U/L (7-52) 12/19/16 05:25 Alkaline Phosphatase 63 U/L (34-104) 12/19/16 05:25 Ammonia 55 umol/L (16-53) H 12/19/16 05:25 Total Protein 5.1 gm/dL (6.0-8.3) L 12/19/16 05:25 Albumin 2.6 gm/dL (3.7-5.3) L 12/19/16 05:25 Globulin 2.5 gm/dL 12/19/16 05:25 Albumin/Globulin Ratio 1.0 (1.0-1.8) 12/19/16 05:25 Triglycerides 146 mg/dL (<150) 12/15/16 07:44 Cholesterol 67 mg/dL (<200) 12/15/16 07:44 LDL Cholesterol Direct 18 mg/dL (75-193) L 12/15/16 07:44 HDL Cholesterol 7 mg/dL (23-92) L 12/15/16 07:44 TSH 1.39 uIU/ml (0.34-5.60) 12/15/16 07:44 Random Vancomycin 22.7 ug/mL (5.0-40.0) 12/18/16 06:09 - Physical Exam Vitals and I&O: Vital Signs Temp 97.2 F 12/19/16 08:00 Pulse 111 12/19/16 10:15 Resp 24 12/19/16 10:00 BP 94/72 12/19/16 10:15 Pulse Ox 99 12/19/16 10:00 Intake & Output 12/18/16 12/19/16 12/19/16 18:59 06:59 18:59 Intake Total 50 185.563 268.732 Output Total 0 Balance 50 185.563 268.732 Weight (lbs) 84.822 kg 84.595 kg Intake: Intake, IV Amount 50 155.563 268.732 Norepinephrine 4 mg In 55.563 18.732 Dextrose 5% 250 ml @ 5 MCG/MIN 19.05 mls/hr IV TITR PRN Rx#:[id number] Piperacillin Sodium/ 50 100 Tazobact 2.25 gm In Sodium Chloride 0.9% 50 ml @ 100 mls/hr IV Q8HR [facility] Rx#:[id number] Sodium Chloride 0.9% 250 250 ml @ Wide Open IV .Q0M ONE Rx#:[id number] Oral 30 Output: Urine 0 Other: # Bowel Movements 0 Stool Characteristics Soft Active Medications: Current Medications Acyclovir (Zovirax) 400 mg PO DAILY [facility] Stop: 02/13/17 08:59 Last Admin: 12/18/16 09:43 Dose: 400 mg Amiodarone HCl (Cordarone) 200 mg PO BID [facility] Stop: 02/13/17 16:59 Last Admin: 12/18/16 18:27 Dose: 200 mg Calcitriol (Rocaltrol) 0.25 mcg PO DAILY [facility] Stop: 02/12/17 08:59 Last Admin: 12/18/16 09:43 Dose: 0.25 mcg Calcium Carbonate (Calcium Carb) 600 mg PO TID [facility] Stop: 02/12/17 08:59 Last Admin: 12/18/16 20:55 Dose: 600 mg Folic Acid (Folate) 1 mg PO DAILY [facility] Stop: 02/12/17 08:59 Last Admin: 12/18/16 09:44 Dose: 1 mg Gabapentin (Neurontin) 300 mg PO DAILY [facility] Stop: 02/12/17 08:59 Last Admin: 12/18/16 09:45 Dose: 300 mg Piperacillin Sod/Tazobactam (Sod 2.25 gm/ Sodium Chloride) 50 mls @ 100 mls/hr IV Q8HR [facility] Stop: 02/13/17 04:59 Last Infusion: 12/19/16 04:59 Dose: Infused Norepinephrine Bitartrate 4 mg (/ Dextrose) 254 mls @ 19.05 mls/hr IV TITR PRN ; Protocol; 5 MCG/MIN PRN Reason: BP MAINTENANCE (PER PROTOCOL) Stop: 02/17/17 00:56 Last Titration: 12/19/16 08:04 Dose: 0 mcg/min, 0 mls/hr Vancomycin HCl 1 gm/ Sodium (Chloride) 250 mls @ 165 mls/hr IV ONCE ONE Stop: 12/19/16 14:30 Lactobacillus Rhamnosus (Culturelle) 1 each PO DAILY [facility] Stop: 02/14/17 08:59 Last Admin: 12/18/16 09:46 Dose: 1 each Lactulose (Cephulac) 30 gm PO BID [facility] Stop: 02/17/17 09:14 Miscellaneous (Clinical Monitoring) 1 ea MC DAILY PRN PRN Reason: RENAL Stop: 02/12/17 11:19 Miscellaneous (Vancomycin Iv Per Pharmacy) 1 ea MC PRN [facility] Stop: 02/13/17 00:14 Miscellaneous (Probiotic Screen) 1 ea PRN PRN PRN Reason: PROTOCOL Stop: 02/13/17 09:47 Morphine Sulfate (Morphine) 2 mg IVP Q6H PRN PRN Reason: Pain (Moderate) Stop: 02/12/17 00:34 Last Admin: 12/17/16 21:47 Dose: 2 mg Pantoprazole Sodium (Protonix) 40 mg PO DAILY [facility] Stop: 02/12/17 08:59 Last Admin: 12/18/16 09:43 Dose: 40 mg Propranolol HCl (Inderal) 20 mg PO TID [facility] Stop: 02/12/17 08:59 Last Admin: 12/18/16 20:57 Dose: Not Given Rifaximin (Xifaxan) 200 mg PO Q12H [facility] Stop: 02/12/17 08:59 Last Admin: 12/18/16 20:55 Dose: 200 mg Sevelamer Carbonate (Renvela) 800 mg PO TID [facility] Stop: 02/12/17 08:59 Last Admin: 12/18/16 21:01 Dose: 800 mg Tramadol HCl (Ultram) 50 mg PO Q8H [facility] Stop: 02/12/17 16:59 Last Admin: 12/19/16 01:07 Dose: Not Given Vitamin B Complex/Vit C/Folic Acid (Vitamin B Complex W/Vitamin C) 1 tab PO DAILY [facility] Stop: 02/12/17 08:59 Last Admin: 12/18/16 09:44 Dose: 1 tab General: Alert, No acute distress HEENT: Atraumatic, PERRLA, EOMI Neck: Supple Cardiovascular: Normal S1, Normal S2 Lungs: Clear to auscultation Abdomen: Bowel sounds Extremities: Edema, no Clubbing, no Cyanosis Skin: Rash (vesicular rash present to the left hip cellulitis) Assessment/Plan - Problem List Patient Problems: All Active Problems Anemia (Acute) D64.9 Cellulitis (Acute) L03.90 Chronic atrial fibrillation (Acute) I48.2 Diabetes mellitus (Acute) E11.9 ESRD (end stage renal disease) on dialysis (Acute) N18.6, Z99.2 Herpes zoster (Acute) B02.9 Left hip pain (Acute) M25.552 BRADLEY (nonalcoholic steatohepatitis) (Acute) K75.81 Peripheral vascular disease (Acute) I73.9 Thrombocytopenia (Acute) D69.6 - Assessment Assessment: HD today on MWF scehdule. So far tolerating w/ pressor support Keep volume status even given ongoing sepsis and hypotension. HGB in range no need for JUDITH or transfusion Abx per infectious disesase Nutritional Asmnt/Malnutr-PDOC - Dietary Evaluation Malnutrition Findings (Please click <Entered> for more info): Nutritional Asmnt/Malnutrition Start: 12/15/16 15: 13 Text: Status: Complete Freq: Document 12/15/16 15:13 [facility] (Rec: 12/15/16 15:28 [facility] [id number]) Nutritional Asmnt/Malnutrition Patient General Information Nutritional Screening High Risk Screening Diagnosis Left leg pain, rash suspicious of herpes zoster Pertinent Medical Hx/Surgical Hx CVA, TIA, ESRD on dialysis, DM Subjective Information Pt is a 71-year-old female admitted with chief complaint of pain to left side of hip. Pt was asleep and unarousable to sound. Pt appears overwt with loose skin. RD unable to complete full malnutrition- focused physical assessment. CHRISTINA Pierre reports that pt feeds self independently. Pt has no teeth but currently tolerating food; RN request for soft foods in case. RD discussed with Dr. Domínguez, texture change approved. Current Diet Order/ Nutrition Support Renal Patient / S.O Indicated Pertinent Medications Rocaltrol, Calcium Carb, Cleocin, Folate, Morphine, Protonix, Renevla, Vitamin B Complex Pertinent Labs (12/14) BUN 45H and Creatinine 5 .8H (increasing), Total Bilrubin 2H, Alkaline Phosphatase 132H, Albumin 2.6L , Ammonia 89H Nutritional Hx/Data Height 1.55 m Height (Calculated Centimeters) 154.9 Current Weight (lbs) 66.224 kg Weight (Calculated Kilograms) 66.2 Weight (Calculated Grams) 16794.5 [place] Body Weight 105 % [place] Body Weight 139 Weight Status Overweight GI Symptoms GI Symptoms None Last BM Difficult in: Chewing Food Allergies No Cultural/Ethnic/Jewish Belief No preferences noted. Skin Integrity/Comment: Jf 17. No skin breakdown. Rash and bruises noted. Current %PO Good (75-100%) Estimated Nutritional Goals BEE in Kcals: Using Current wt Calories/Kcals/Kg Based on current wt 66.4 kg with consideration of dialysis Kcals Calculated 1504-0183 kcals/day (25-30 kcals/kg) Protein: Using Current wt Protein g/kg: Based on current wt 66.4 kg with consideration of dialysis Protein Calculated 80-93 gm/day (1.2-1.4 gm/kg) Fluid: ml Per MD/DO due to renal failure Nutritional Problem 1. Problem Problem Possible chewing difficulty related to Etiology complete edentulism as evidenced by Signs/Symptoms: RN reports. Malnutrition Alert Protein-Calorie Malnutrition N/A Is there a minimum of two criteria No selected? Query Text:Check all the applicable criteria. A minimum of two criteria are recommended for diagnosis of either severe or non-severe malnutrition. Malnutrition Related to Morbid Obesity Malnutrition related to morbid obesity No Intervention/Recommendation Comments 1. Recommend mechanical soft chopped, 90-gram renal diet to better meet estimated nutritional needs. Expected Outcomes/Goals Expected Outcomes/Goals Have pt meet at least 75% of estimated nutritional needs with acceptable tolerance. Physician Parameters for PEM Serum Albumin (g/dl) 2.4 - 3.0 (Moderate)
[2016-12-19] MEDS: Pantoprazole 40 mg EC Tab PO SCH (11:54)
[2016-12-19] MEDS: Lactobacillus Rhamnosus 10 Billion CFU Capsule PO SCH (11:54)
[2016-12-19] MEDS: Vitamin B Complex w/Vitamin C Tab PO SCH (11:55)
[2016-12-19] MEDS: Sevelamer Carnonate 800 mg Tab PO SCH ×3 (11:55→20:43)
[2016-12-19] MEDS: Lactulose 10 Gm/15 mL 30mL UDC PO SCH ×2 (13:25→17:15)
--- NOTE | 2016-12-19 14:53 | Infectious Disease Prog Note ---
Infectious Disease Subjective - Review of Systems Service Date: 12/19/16 Events since last encounter: She was hypotensive, tachycardic so patient was transferred to the ICU. Subjective: Patient was hypotensive, tachycardic. It was assisted with the change in mental status. He started on Levophed which was discontinued as blood percent improved. Levophed resumed at 6 mcg/min. Currently, patient remians in the ICU. There is no fever. c/o tenderness in her left leg laterally. blister on left thigh. Infectious Disease Objective - Results Result Diagrams: 12/19/16 05:25 12/19/16 05:25 Recent Labs: Laboratory Last Values WBC 8.9 Th/cmm (4.8-10.8) 12/19/16 05:25 RBC 3.18 Mil/cmm (3.80-5.20) L 12/19/16 05:25 Hgb 10.9 gm/dL (11.7-16.1) L 12/19/16 05:25 Hct 32.4 % (35.0-45.0) L 12/19/16 05:25 MCV 101.8 fl (81-100) H 12/19/16 05:25 MCH 34.3 pg (27.0-31.0) H 12/19/16 05:25 MCHC Differential 33.7 pg (28.0-36.0) 12/19/16 05:25 RDW 17.1 % (11.5-20.0) 12/19/16 05:25 Plt Count 105 Th/cmm (150-400) L D 12/19/16 05:25 MPV 9.8 fl 12/19/16 05:25 Neutrophils % 85.3 % (40.0-80.0) H 12/19/16 05:25 Band Neutrophils % 2 % (0-10) 12/18/16 06:09 Lymphocytes % 4.3 % (20.0-50.0) L 12/19/16 05:25 Monocytes % 9.8 % (2.0-10.0) 12/19/16 05:25 Eosinophils % 0.4 % (0.0-5.0) 12/19/16 05:25 Basophils % 0.2 % (0.0-2.0) 12/19/16 05:25 Neutrophils (Manual) 82 % (40-80) H 12/18/16 06:09 Lymphocytes 9 % (20-50) L 12/18/16 06:09 Monocytes 6 % (2-10) 12/18/16 06:09 Eosinophils 1 % (0-5) 12/18/16 06:09 Basophils 0 % (0-3) 12/13/16 19:37 Nucleated RBCs 1.0 % (0-0) H 12/18/16 06:09 Platelet Estimate DECREASED PLATELETS (NORMAL) 12/18/16 06:09 Platelet Morphology NORMAL (NORMAL) 12/18/16 06:09 Polychromasia 1+ 12/18/16 06:09 Anisocytosis 1+ 12/17/16 06:42 RBC Morph Micro Appear ABNORMAL (NORMAL) 12/18/16 06:09 PT 14.5 SECONDS (9.5-11.5) H 12/13/16 19:37 INR 1.37 (0.5-1.4) 12/13/16 19:37 PTT (Actin FS) 39.0 SECONDS (26.0-38.0) H 12/13/16 19:37 Specimen Source Arterial 12/18/16 22:48 Sample Site R-B 12/18/16 22:48 pH 7.37 (7.35-7.45) 12/18/16 22:48 pCO2 47.0 mmHg (35.0-45.0) H 12/18/16 22:48 pO2 85.0 mmHg (80.0-100.0) 12/18/16 22:48 HCO3 26.0 mEq/L (20.0-26.0) 12/18/16 22:48 Base Excess 1.4 mEq/L (-3.0-3.0) 12/18/16 22:48 O2 Saturation 96.0 % (92.0-100.0) 12/18/16 22:48 Mario Test P 12/18/16 22:48 Vent Rate NA 12/18/16 22:48 Inspired O2 32 12/18/16 22:48 Tidal Volume NA 12/18/16 22:48 PEEP NA 12/18/16 22:48 Pressure (ins/psv/peep) NA 12/18/16 22:48 Critical Value RPINEIRA 12/18/16 22:48 Sodium 130 mEq/L (136-145) L 12/19/16 05:25 Potassium 4.4 mEq/L (3.5-5.1) 12/19/16 05:25 Chloride 95 mEq/L (98-107) L 12/19/16 05:25 Carbon Dioxide 22.4 mEq/L (21.0-31.0) 12/19/16 05:25 Anion Gap 17.0 (7.0-16.0) H 12/19/16 05:25 BUN 47 mg/dL (7-25) H 12/19/16 05:25 Creatinine 5.6 mg/dL (0.6-1.2) H* 12/19/16 05:25 Est GFR ( Amer) TNP 12/19/16 05:25 Est GFR (Non-Af Amer) TNP 12/19/16 05:25 BUN/Creatinine Ratio 8.4 12/19/16 05:25 Glucose 90 mg/dL (70-105) 12/19/16 05:25 POC Glucose 89 MG/DL (70 - 105) 12/18/16 19:57 Hemoglobin A1c % 5.1 % (4.0-6.0) 12/15/16 07:44 Calcium 8.8 mg/dL (8.6-10.3) 12/19/16 05:25 Total Bilirubin 3.3 mg/dL (0.3-1.0) H 12/19/16 05:25 AST 16 U/L (13-39) 12/19/16 05:25 ALT 8 U/L (7-52) 12/19/16 05:25 Alkaline Phosphatase 63 U/L (34-104) 12/19/16 05:25 Ammonia 55 umol/L (16-53) H 12/19/16 05:25 Total Protein 5.1 gm/dL (6.0-8.3) L 12/19/16 05:25 Albumin 2.6 gm/dL (3.7-5.3) L 12/19/16 05:25 Globulin 2.5 gm/dL 12/19/16 05:25 Albumin/Globulin Ratio 1.0 (1.0-1.8) 12/19/16 05:25 Triglycerides 146 mg/dL (<150) 12/15/16 07:44 Cholesterol 67 mg/dL (<200) 12/15/16 07:44 LDL Cholesterol Direct 18 mg/dL (75-193) L 12/15/16 07:44 HDL Cholesterol 7 mg/dL (23-92) L 12/15/16 07:44 TSH 1.39 uIU/ml (0.34-5.60) 12/15/16 07:44 Random Vancomycin 22.7 ug/mL (5.0-40.0) 12/18/16 06:09 - Physical Exam Vitals and I&O: Vital Signs Temp 97.5 F 12/19/16 14:00 Pulse 103 12/19/16 14:30 Resp 22 12/19/16 14:00 BP 99/56 12/19/16 14:30 Pulse Ox 99 12/19/16 14:00 Intake & Output 12/18/16 12/19/16 12/19/16 18:59 06:59 18:59 Intake Total 50 185.563 318.732 Output Total 0 Balance 50 185.563 318.732 Weight (lbs) 84.822 kg 84.595 kg Intake: Intake, IV Amount 50 155.563 318.732 Norepinephrine 4 mg In 55.563 18.732 Dextrose 5% 250 ml @ 5 MCG/MIN 19.05 mls/hr IV TITR PRN Rx#:[id number] Piperacillin Sodium/ 50 100 50 Tazobact 2.25 gm In Sodium Chloride 0.9% 50 ml @ 100 mls/hr IV Q8HR [facility] Rx#:[id number] Sodium Chloride 0.9% 250 250 ml @ Wide Open IV .Q0M ONE Rx#:[id number] Oral 30 Output: Urine 0 Other: # Bowel Movements 0 Stool Characteristics Soft Active Medications: Current Medications Acyclovir (Zovirax) 400 mg PO DAILY [facility] Stop: 02/13/17 08:59 Last Admin: 12/19/16 11:52 Dose: Not Given Amiodarone HCl (Cordarone) 200 mg PO BID [facility] Stop: 02/13/17 16:59 Last Admin: 12/19/16 09:52 Dose: Not Given Calcitriol (Rocaltrol) 0.25 mcg PO DAILY [facility] Stop: 02/12/17 08:59 Last Admin: 12/19/16 11:53 Dose: Not Given Calcium Carbonate (Calcium Carb) 600 mg PO TID [facility] Stop: 02/12/17 08:59 Last Admin: 12/19/16 11:53 Dose: Not Given Folic Acid (Folate) 1 mg PO DAILY [facility] Stop: 02/12/17 08:59 Last Admin: 12/19/16 11:53 Dose: Not Given Gabapentin (Neurontin) 300 mg PO DAILY [facility] Stop: 02/12/17 08:59 Last Admin: 12/19/16 11:54 Dose: Not Given Piperacillin Sod/Tazobactam (Sod 2.25 gm/ Sodium Chloride) 50 mls @ 100 mls/hr IV Q8HR [facility] Stop: 02/13/17 04:59 Last Infusion: 12/19/16 13:24 Dose: Infused Norepinephrine Bitartrate 4 mg (/ Dextrose) 254 mls @ 19.05 mls/hr IV TITR PRN ; Protocol; 5 MCG/MIN PRN Reason: BP MAINTENANCE (PER PROTOCOL) Stop: 02/17/17 00:56 Last Admin: 12/19/16 11:46 Dose: 12 mcg/min, 45.72 mls/hr Lactobacillus Rhamnosus (Culturelle) 1 each PO DAILY [facility] Stop: 02/14/17 08:59 Last Admin: 12/19/16 11:54 Dose: Not Given Lactulose (Cephulac) 30 gm PO BID [facility] Stop: 02/17/17 09:14 Last Admin: 12/19/16 13:25 Dose: 30 gm Miscellaneous (Clinical Monitoring) 1 ea MC DAILY PRN PRN Reason: RENAL Stop: 02/12/17 11:19 Miscellaneous (Vancomycin Iv Per Pharmacy) 1 ea MC PRN [facility] Stop: 02/13/17 00:14 Miscellaneous (Probiotic Screen) 1 ea MC PRN PRN PRN Reason: PROTOCOL Stop: 02/13/17 09:47 Morphine Sulfate (Morphine) 2 mg IVP Q6H PRN PRN Reason: Pain (Moderate) Stop: 02/12/17 00:34 Last Admin: 12/17/16 21:47 Dose: 2 mg Pantoprazole Sodium (Protonix) 40 mg PO DAILY [facility] Stop: 02/12/17 08:59 Last Admin: 12/19/16 11:54 Dose: Not Given Propranolol HCl (Inderal) 20 mg PO TID [facility] Stop: 02/12/17 08:59 Last Admin: 12/19/16 09:54 Dose: Not Given Rifaximin (Xifaxan) 200 mg PO Q12H [facility] Stop: 02/12/17 08:59 Last Admin: 12/19/16 11:55 Dose: Not Given Sevelamer Carbonate (Renvela) 800 mg PO TID [facility] Stop: 02/12/17 08:59 Last Admin: 12/19/16 11:55 Dose: Not Given Tramadol HCl (Ultram) 50 mg PO Q8H [facility] Stop: 02/12/17 16:59 Last Admin: 12/19/16 09:51 Dose: Not Given Vitamin B Complex/Vit C/Folic Acid (Vitamin B Complex W/Vitamin C) 1 tab PO DAILY [facility] Stop: 02/12/17 08:59 Last Admin: 12/19/16 11:55 Dose: Not Given General: no acute distress, well developed, well nourished HEENT: atraumatic, normocephalic, PERRLA, EOMI Neck: supple, no thyromegaly Cardiovascular: S1S2, regular Lungs: clear to auscultation bilaterally, clear to percussion Abdomen: soft, no tender, no distended Extremities: other (left leg has large wound laterally. There is a burrell discoloration skin surrounding the wound. There is severe tenderness. There is l;arge blister on the left thigh.), no cyanosis, no clubbing, no edema Neurological: awake, alert, oriented Infectious Disease Assmt/Plan - Problem List Patient Problems: All Active Problems Anemia (Acute) D64.9 Cellulitis (Acute) L03.90 Chronic atrial fibrillation (Acute) I48.2 Diabetes mellitus (Acute) E11.9 ESRD (end stage renal disease) on dialysis (Acute) N18.6, Z99.2 Herpes zoster (Acute) B02.9 Left hip pain (Acute) M25.552 BRADLEY (nonalcoholic steatohepatitis) (Acute) K75.81 Peripheral vascular disease (Acute) I73.9 Thrombocytopenia (Acute) D69.6 - Assessment Assessment: 1. Left leg cellulitis. suspect strep versus staph infection, suspect underlying necrosis. 2. ? shingles in thigh. 3. DM2. 4. CKD 5 on HD. 5. Hypotension. 6. Hepatic encephalopathy. - Plan Plan: Continue vanco iv, zosyn, and acyclovir. wound care. blood c/s Nutritional Asmnt/Malnutr-PDOC - Dietary Evaluation Malnutrition Findings (Please click <Entered> for more info): Nutritional Asmnt/Malnutrition Start: 12/15/16 15: 13 Text: Status: Complete Freq: Document 12/15/16 15:13 [facility] (Rec: 12/15/16 15:28 [facility] [id number]) Nutritional Asmnt/Malnutrition Patient General Information Nutritional Screening High Risk Screening Diagnosis Left leg pain, rash suspicious of herpes zoster Pertinent Medical Hx/Surgical Hx CVA, TIA, ESRD on dialysis, DM Subjective Information Pt is a 71-year-old female admitted with chief complaint of pain to left side of hip. Pt was asleep and unarousable to sound. Pt appears overwt with loose skin. RD unable to complete full malnutrition- focused physical assessment. CHRISTINA Pierre reports that pt feeds self independently. Pt has no teeth but currently tolerating food; RN request for soft foods in case. RD discussed with Dr. Domínguez, texture change approved. Current Diet Order/ Nutrition Support Renal Patient / S.O Indicated Pertinent Medications Rocaltrol, Calcium Carb, Cleocin, Folate, Morphine, Protonix, Renevla, Vitamin B Complex Pertinent Labs (12/14) BUN 45H and Creatinine 5 .8H (increasing), Total Bilrubin 2H, Alkaline Phosphatase 132H, Albumin 2.6L , Ammonia 89H Nutritional Hx/Data Height 1.55 m Height (Calculated Centimeters) 154.9 Current Weight (lbs) 66.224 kg Weight (Calculated Kilograms) 66.2 Weight (Calculated Grams) 75357.5 [place] Body Weight 105 % [place] Body Weight 139 Weight Status Overweight GI Symptoms GI Symptoms None Last BM Difficult in: Chewing Food Allergies No Cultural/Ethnic/Buddhism Belief No preferences noted. Skin Integrity/Comment: Jf 17. No skin breakdown. Rash and bruises noted. Current %PO Good (75-100%) Estimated Nutritional Goals BEE in Kcals: Using Current wt Calories/Kcals/Kg Based on current wt 66.4 kg with consideration of dialysis Kcals Calculated 0449-2829 kcals/day (25-30 kcals/kg) Protein: Using Current wt Protein g/kg: Based on current wt 66.4 kg with consideration of dialysis Protein Calculated 80-93 gm/day (1.2-1.4 gm/kg) Fluid: ml Per MD/DO due to renal failure Nutritional Problem 1. Problem Problem Possible chewing difficulty related to Etiology complete edentulism as evidenced by Signs/Symptoms: RN reports. Malnutrition Alert Protein-Calorie Malnutrition N/A Is there a minimum of two criteria No selected? Query Text:Check all the applicable criteria. A minimum of two criteria are recommended for diagnosis of either severe or non-severe malnutrition. Malnutrition Related to Morbid Obesity Malnutrition related to morbid obesity No Intervention/Recommendation Comments 1. Recommend mechanical soft chopped, 90-gram renal diet to better meet estimated nutritional needs. Expected Outcomes/Goals Expected Outcomes/Goals Have pt meet at least 75% of estimated nutritional needs with acceptable tolerance. Physician Parameters for PEM Serum Albumin (g/dl) 2.4 - 3.0 (Moderate)
[2016-12-19] MEDS: Venelex 60gm Tube TP SCH (18:14)
[2016-12-20] MEDS: Piperacillin/Tazobact 2.25 gm in 0.9% NS 50 ML IV SCH ×3 (06:00→21:09)
[2016-12-20 06:33] LABS: % BASOPHILS 0.5 % (0.0-2.0); % EOSINOPHILS 0.5 % (0.0-5.0); % LYMPHOCYTES 6.7 % (20.0-50.0); % MONOCYTES 10.6 % (2.0-10.0); % NEUTROPHILS 81.7 % (40.0-80.0); HEMATOCRIT 36.5 % (35.0-45.0); HEMOGLOBIN 12.3 gm/dL (11.7-16.1); MEAN CELL VOLUME 101.8 fl (81-100); MEAN CORPUSCULAR HEMOGLOBIN 34.3 pg (27.0-31.0); MEAN CORPUSCULAR HGB CONC 33.6 pg (28.0-36.0); MEAN PLATELET VOLUME 8.6 fl; NEUTROPHILE ABSOLUTE 8.2 Th/cmm (1.8-8.0); RED BLOOD COUNT 3.59 Mil/cmm (3.80-5.20); RED CELL DISTRIBUTION WIDTH 17.4 % (11.5-20.0); WHITE BLOOD COUNT 10.2 Th/cmm (4.8-10.8)
[2016-12-20 06:40] LABS: PLATELET COUNT 143 Th/cmm (150-400)
[2016-12-20 06:59] LABS: ALB/GLOB RATIO 0.8 (1.0-1.8); ALKALINE PHOSPHATASE 66 U/L (34-104); ANION GAP 14.1 (7.0-16.0); BILIRUBIN,TOTAL 2.6 mg/dL (0.3-1.0); BUN - UREA NITROGEN 37 mg/dL (7-25); BUN/CREATININE RATIO 7.7; CALCIUM SERUM 9.1 mg/dL (8.6-10.3); CARBON DIOXIDE 21.9 mEq/L (21.0-31.0); CHLORIDE 98 mEq/L (98-107); GLUCOSE 143 mg/dL (70-105); SGOT 21 U/L (13-39); SGPT/ALT 9 U/L (7-52); SODIUM SERUM 130 mEq/L (136-145)
[2016-12-20 07:13] LABS: CREATININE - SERUM 4.8 mg/dL (0.6-1.2)
--- NOTE | 2016-12-20 09:11 | General Progress Note ---
Subjective - Review of Systems Service Date: 12/20/16 Subjective: transferred to ICU last night due to change in mental status. increased fatigue and weakness. hypotensive. currently on Levofed. Patient given a bolus of NS to maintain blood pressure. Patient still lethargic today. For CT head today. Patient has a history of hepatic encephalopathy. Patient for swallow evaluation today. May consider G tube placement. Objective - Results Result Diagrams: 12/20/16 06:26 12/20/16 06:26 Recent Labs: Laboratory Last Values WBC 10.2 Th/cmm (4.8-10.8) 12/20/16 06:26 RBC 3.59 Mil/cmm (3.80-5.20) L 12/20/16 06:26 Hgb 12.3 gm/dL (11.7-16.1) 12/20/16 06:26 Hct 36.5 % (35.0-45.0) D 12/20/16 06:26 MCV 101.8 fl (81-100) H 12/20/16 06:26 MCH 34.3 pg (27.0-31.0) H 12/20/16 06:26 MCHC Differential 33.6 pg (28.0-36.0) 12/20/16 06:26 RDW 17.4 % (11.5-20.0) 12/20/16 06:26 Plt Count 143 Th/cmm (150-400) L D 12/20/16 06:26 MPV 8.6 fl 12/20/16 06:26 Neutrophils % 81.7 % (40.0-80.0) H 12/20/16 06:26 Band Neutrophils % 2 % (0-10) 12/18/16 06:09 Lymphocytes % 6.7 % (20.0-50.0) L 12/20/16 06:26 Monocytes % 10.6 % (2.0-10.0) H 12/20/16 06:26 Eosinophils % 0.5 % (0.0-5.0) 12/20/16 06:26 Basophils % 0.5 % (0.0-2.0) 12/20/16 06:26 Neutrophils (Manual) 82 % (40-80) H 12/18/16 06:09 Lymphocytes 9 % (20-50) L 12/18/16 06:09 Monocytes 6 % (2-10) 12/18/16 06:09 Eosinophils 1 % (0-5) 12/18/16 06:09 Basophils 0 % (0-3) 12/13/16 19:37 Nucleated RBCs 1.0 % (0-0) H 12/18/16 06:09 Platelet Estimate DECREASED PLATELETS (NORMAL) 12/18/16 06:09 Platelet Morphology NORMAL (NORMAL) 12/18/16 06:09 Polychromasia 1+ 12/18/16 06:09 Anisocytosis 1+ 12/17/16 06:42 RBC Morph Micro Appear ABNORMAL (NORMAL) 12/18/16 06:09 PT 14.5 SECONDS (9.5-11.5) H 12/13/16 19:37 INR 1.37 (0.5-1.4) 12/13/16 19:37 PTT (Actin FS) 39.0 SECONDS (26.0-38.0) H 12/13/16 19:37 Specimen Source Arterial 12/18/16 22:48 Sample Site R-B 12/18/16 22:48 pH 7.37 (7.35-7.45) 12/18/16 22:48 pCO2 47.0 mmHg (35.0-45.0) H 12/18/16 22:48 pO2 85.0 mmHg (80.0-100.0) 12/18/16 22:48 HCO3 26.0 mEq/L (20.0-26.0) 12/18/16 22:48 Base Excess 1.4 mEq/L (-3.0-3.0) 12/18/16 22:48 O2 Saturation 96.0 % (92.0-100.0) 12/18/16 22:48 Mario Test P 12/18/16 22:48 Vent Rate NA 12/18/16 22:48 Inspired O2 32 12/18/16 22:48 Tidal Volume NA 12/18/16 22:48 PEEP NA 12/18/16 22:48 Pressure (ins/psv/peep) NA 12/18/16 22:48 Critical Value RPINEIRA 12/18/16 22:48 Sodium 130 mEq/L (136-145) L 12/20/16 06:26 Potassium 4.0 mEq/L (3.5-5.1) 12/20/16 06:26 Chloride 98 mEq/L (98-107) 12/20/16 06:26 Carbon Dioxide 21.9 mEq/L (21.0-31.0) 12/20/16 06:26 Anion Gap 14.1 (7.0-16.0) 12/20/16 06:26 BUN 37 mg/dL (7-25) H 12/20/16 06:26 Creatinine 4.8 mg/dL (0.6-1.2) H* 12/20/16 06:26 Est GFR ( Amer) TNP 12/20/16 06:26 Est GFR (Non-Af Amer) TNP 12/20/16 06:26 BUN/Creatinine Ratio 7.7 12/20/16 06:26 Glucose 143 mg/dL (70-105) H 12/20/16 06:26 POC Glucose 89 MG/DL (70 - 105) 12/18/16 19:57 Hemoglobin A1c % 5.1 % (4.0-6.0) 12/15/16 07:44 Calcium 9.1 mg/dL (8.6-10.3) 12/20/16 06:26 Total Bilirubin 2.6 mg/dL (0.3-1.0) H 12/20/16 06:26 AST 21 U/L (13-39) 12/20/16 06:26 ALT 9 U/L (7-52) 12/20/16 06:26 Alkaline Phosphatase 66 U/L (34-104) 12/20/16 06:26 Ammonia 46 umol/L (16-53) 12/20/16 06:26 Total Protein 5.3 gm/dL (6.0-8.3) L 12/20/16 06:26 Albumin 2.4 gm/dL (3.7-5.3) L 12/20/16 06:26 Globulin 2.9 gm/dL 12/20/16 06:26 Albumin/Globulin Ratio 0.8 (1.0-1.8) L 12/20/16 06:26 Triglycerides 146 mg/dL (<150) 12/15/16 07:44 Cholesterol 67 mg/dL (<200) 12/15/16 07:44 LDL Cholesterol Direct 18 mg/dL (75-193) L 12/15/16 07:44 HDL Cholesterol 7 mg/dL (23-92) L 12/15/16 07:44 TSH 1.39 uIU/ml (0.34-5.60) 12/15/16 07:44 Random Vancomycin 22.7 ug/mL (5.0-40.0) 12/18/16 06:09 - Physical Exam Vitals and I&O: Vital Signs Temp 96.8 F 12/20/16 08:00 Pulse 98 12/20/16 08:15 Resp 15 12/20/16 08:00 BP 100/46 12/20/16 08:15 Pulse Ox 100 12/20/16 08:00 Intake & Output 12/19/16 12/20/16 12/20/16 18:59 06:59 18:59 Intake Total 572.732 150.932 Output Total 2200 0 Balance -1627.268 150.932 Weight (lbs) 84.595 kg 84.595 kg Intake: Intake, IV Amount 572.732 150.932 Norepinephrine 4 mg In 272.732 50.932 Dextrose 5% 250 ml @ 5 MCG/MIN 19.05 mls/hr IV TITR PRN Rx#:[id number] Piperacillin Sodium/ 50 100 Tazobact 2.25 gm In Sodium Chloride 0.9% 50 ml @ 100 mls/hr IV Q8HR [facility] Rx#:[id number] Sodium Chloride 0.9% 250 250 ml @ Wide Open IV .Q0M ONE Rx#:[id number] Output: Urine 0 Stool 200 Other 2000 Other: # Bowel Movements 1 2 Stool Characteristics Soft Liquid Brown Active Medications: Current Medications Acyclovir (Zovirax) 400 mg PO DAILY [facility] Stop: 02/13/17 08:59 Last Admin: 12/19/16 11:52 Dose: Not Given Amiodarone HCl (Cordarone) 200 mg PO BID [facility] Stop: 02/13/17 16:59 Last Admin: 12/19/16 17:15 Dose: Not Given Calcitriol (Rocaltrol) 0.25 mcg PO DAILY [facility] Stop: 02/12/17 08:59 Last Admin: 12/19/16 11:53 Dose: Not Given Calcium Carbonate (Calcium Carb) 600 mg PO TID [facility] Stop: 02/12/17 08:59 Last Admin: 12/19/16 20:43 Dose: Not Given Folic Acid (Folate) 1 mg PO DAILY [facility] Stop: 02/12/17 08:59 Last Admin: 12/19/16 11:53 Dose: Not Given Gabapentin (Neurontin) 300 mg PO DAILY [facility] Stop: 02/12/17 08:59 Last Admin: 12/19/16 11:54 Dose: Not Given Piperacillin Sod/Tazobactam (Sod 2.25 gm/ Sodium Chloride) 50 mls @ 100 mls/hr IV Q8HR [facility] Stop: 02/13/17 04:59 Last Infusion: 12/20/16 06:30 Dose: Infused Norepinephrine Bitartrate 4 mg (/ Dextrose) 254 mls @ 19.05 mls/hr IV TITR PRN ; Protocol; 5 MCG/MIN PRN Reason: BP MAINTENANCE (PER PROTOCOL) Stop: 02/17/17 00:56 Last Admin: 12/19/16 20:36 Dose: 5.9 mcg/min, 22.47 mls/hr Lactobacillus Rhamnosus (Culturelle) 1 each PO DAILY [facility] Stop: 02/14/17 08:59 Last Admin: 12/19/16 11:54 Dose: Not Given Lactulose (Cephulac) 30 gm PO BID [facility] Stop: 02/17/17 09:14 Last Admin: 12/19/16 17:15 Dose: 30 gm Miscellaneous (Clinical Monitoring) 1 ea MC DAILY PRN PRN Reason: RENAL Stop: 02/12/17 11:19 Miscellaneous (Vancomycin Iv Per Pharmacy) 1 ea MC PRN [facility] Stop: 02/13/17 00:14 Miscellaneous (Probiotic Screen) 1 ea PRN PRN PRN Reason: PROTOCOL Stop: 02/13/17 09:47 Morphine Sulfate (Morphine) 2 mg IVP Q6H PRN PRN Reason: Pain (Moderate) Stop: 02/12/17 00:34 Last Admin: 12/17/16 21:47 Dose: 2 mg Pantoprazole Sodium (Protonix) 40 mg PO DAILY [facility] Stop: 02/12/17 08:59 Last Admin: 12/19/16 11:54 Dose: Not Given Propranolol HCl (Inderal) 20 mg PO TID [facility] Stop: 02/12/17 08:59 Last Admin: 12/19/16 20:43 Dose: Not Given Rifaximin (Xifaxan) 200 mg PO Q12H [facility] Stop: 02/12/17 08:59 Last Admin: 12/19/16 20:43 Dose: Not Given Sevelamer Carbonate (Renvela) 800 mg PO TID [facility] Stop: 02/12/17 08:59 Last Admin: 12/19/16 20:43 Dose: Not Given Tramadol HCl (Ultram) 50 mg PO Q8H [facility] Stop: 02/12/17 16:59 Last Admin: 12/20/16 02:45 Dose: Not Given Vitamin B Complex/Vit C/Folic Acid (Vitamin B Complex W/Vitamin C) 1 tab PO DAILY [facility] Stop: 02/12/17 08:59 Last Admin: 12/19/16 11:55 Dose: Not Given General: Alert, No acute distress HEENT: Atraumatic, PERRLA, EOMI Neck: Supple Cardiovascular: Normal S1, Normal S2 Lungs: Clear to auscultation Abdomen: Bowel sounds Extremities: Edema, no Clubbing, no Cyanosis Skin: Rash (vesicular rash present to the left hip cellulitis) Assessment/Plan - Problem List Patient Problems: All Active Problems Anemia (Acute) D64.9 Cellulitis (Acute) L03.90 Chronic atrial fibrillation (Acute) I48.2 Diabetes mellitus (Acute) E11.9 ESRD (end stage renal disease) on dialysis (Acute) N18.6, Z99.2 Herpes zoster (Acute) B02.9 Left hip pain (Acute) M25.552 BRADLEY (nonalcoholic steatohepatitis) (Acute) K75.81 Peripheral vascular disease (Acute) I73.9 Thrombocytopenia (Acute) D69.6 - Assessment Assessment: ALOC ... will order CT head, neuro consult. will dc tramadol. dc gabapentin, dc Morphine sulfate. Acute Kidney Insufficiency on CKD ... will order gentle hydration of NS @ 50cc/ hr hepatic encephalopathy .... repeat ammonia level, continue lactulose WA left leg pain secondary to cellulitis ... continue IV antibiotics per ID herpes zoster ... on acyclovir ESRD on HD Diabetes Mellitus Chronic Atrial Fibrillation ... will order Cardiology consults. please see dictated report Thrombocytopenia secondary to liver cirrhosis ... will order PT/INR Anemia PVD BRADLEY sepsis ... will continue levophed for BP Support. - Plan Plan: eft leg pain cellulitis herpes zoster End Stage Renal Disease on HD Diabetes Mellitus Chronic Atrial Fibrillation Thrombocytopenia Anemia PVD BRADLEY Nutritional Asmnt/Malnutr-PDOC - Dietary Evaluation Malnutrition Findings (Please click <Entered> for more info): Nutritional Asmnt/Malnutrition Start: 12/15/16 15: 13 Text: Status: Complete Freq: Document 12/15/16 15:13 [facility] (Rec: 12/15/16 15:28 [facility] SHOSHANA-[id number]) Nutritional Asmnt/Malnutrition Patient General Information Nutritional Screening High Risk Screening Diagnosis Left leg pain, rash suspicious of herpes zoster Pertinent Medical Hx/Surgical Hx CVA, TIA, ESRD on dialysis, DM Subjective Information Pt is a 71-year-old female admitted with chief complaint of pain to left side of hip. Pt was asleep and unarousable to sound. Pt appears overwt with loose skin. RD unable to complete full malnutrition- focused physical assessment. CHRISTINA Pierre reports that pt feeds self independently. Pt has no teeth but currently tolerating food; RN request for soft foods in case. RD discussed with Dr. Domínguez, texture change approved. Current Diet Order/ Nutrition Support Renal Patient / S.O Indicated Pertinent Medications Rocaltrol, Calcium Carb, Cleocin, Folate, Morphine, Protonix, Renevla, Vitamin B Complex Pertinent Labs (12/14) BUN 45H and Creatinine 5 .8H (increasing), Total Bilrubin 2H, Alkaline Phosphatase 132H, Albumin 2.6L , Ammonia 89H Nutritional Hx/Data Height 1.55 m Height (Calculated Centimeters) 154.9 Current Weight (lbs) 66.224 kg Weight (Calculated Kilograms) 66.2 Weight (Calculated Grams) 06083.5 Velva Body Weight 105 % Velva Body Weight 139 Weight Status Overweight GI Symptoms GI Symptoms None Last BM Difficult in: Chewing Food Allergies No Cultural/Ethnic/Confucianist Belief No preferences noted. Skin Integrity/Comment: Jf 17. No skin breakdown. Rash and bruises noted. Current %PO Good (75-100%) Estimated Nutritional Goals BEE in Kcals: Using Current wt Calories/Kcals/Kg Based on current wt 66.4 kg with consideration of dialysis Kcals Calculated 4579-8671 kcals/day (25-30 kcals/kg) Protein: Using Current wt Protein g/kg: Based on current wt 66.4 kg with consideration of dialysis Protein Calculated 80-93 gm/day (1.2-1.4 gm/kg) Fluid: ml Per MD/DO due to renal failure Nutritional Problem 1. Problem Problem Possible chewing difficulty related to Etiology complete edentulism as evidenced by Signs/Symptoms: RN reports. Malnutrition Alert Protein-Calorie Malnutrition N/A Is there a minimum of two criteria No selected? Query Text:Check all the applicable criteria. A minimum of two criteria are recommended for diagnosis of either severe or non-severe malnutrition. Malnutrition Related to Morbid Obesity Malnutrition related to morbid obesity No Intervention/Recommendation Comments 1. Recommend mechanical soft chopped, 90-gram renal diet to better meet estimated nutritional needs. Expected Outcomes/Goals Expected Outcomes/Goals Have pt meet at least 75% of estimated nutritional needs with acceptable tolerance. Physician Parameters for PEM Serum Albumin (g/dl) 2.4 - 3.0 (Moderate)
[2016-12-20] MEDS ORDERED: Sodium Chloride 0.9% 1,000 ML IV SCH (09:21)
[2016-12-20 09:33] LABS: INR 1.53 (0.5-1.4); PROTHROMBIN TIME (TEST) 16.3 SECONDS (9.5-11.5)
--- NOTE | 2016-12-20 11:56 | Infectious Disease Prog Note ---
Infectious Disease Subjective - Review of Systems Service Date: 12/20/16 Subjective: Patient was hypotensive, tachycardic. It was associated with the change in mental status. He started on Levophed which was discontinued as blood pressure improved. Levophed resumed at 6 mcg/min. Levophed is discontinued. Currently, patient remians in the ICU. There is no fever. c/o tenderness in her left leg laterally. blister on left thigh. Infectious Disease Objective - Results Result Diagrams: 12/20/16 06:26 12/20/16 06:26 Recent Labs: Laboratory Last Values WBC 10.2 Th/cmm (4.8-10.8) 12/20/16 06:26 RBC 3.59 Mil/cmm (3.80-5.20) L 12/20/16 06:26 Hgb 12.3 gm/dL (11.7-16.1) 12/20/16 06:26 Hct 36.5 % (35.0-45.0) D 12/20/16 06:26 MCV 101.8 fl (81-100) H 12/20/16 06:26 MCH 34.3 pg (27.0-31.0) H 12/20/16 06:26 MCHC Differential 33.6 pg (28.0-36.0) 12/20/16 06:26 RDW 17.4 % (11.5-20.0) 12/20/16 06:26 Plt Count 143 Th/cmm (150-400) L D 12/20/16 06:26 MPV 8.6 fl 12/20/16 06:26 Neutrophils % 81.7 % (40.0-80.0) H 12/20/16 06:26 Band Neutrophils % 2 % (0-10) 12/18/16 06:09 Lymphocytes % 6.7 % (20.0-50.0) L 12/20/16 06:26 Monocytes % 10.6 % (2.0-10.0) H 12/20/16 06:26 Eosinophils % 0.5 % (0.0-5.0) 12/20/16 06:26 Basophils % 0.5 % (0.0-2.0) 12/20/16 06:26 Neutrophils (Manual) 82 % (40-80) H 12/18/16 06:09 Lymphocytes 9 % (20-50) L 12/18/16 06:09 Monocytes 6 % (2-10) 12/18/16 06:09 Eosinophils 1 % (0-5) 12/18/16 06:09 Basophils 0 % (0-3) 12/13/16 19:37 Nucleated RBCs 1.0 % (0-0) H 12/18/16 06:09 Platelet Estimate DECREASED PLATELETS (NORMAL) 12/18/16 06:09 Platelet Morphology NORMAL (NORMAL) 12/18/16 06:09 Polychromasia 1+ 12/18/16 06:09 Anisocytosis 1+ 12/17/16 06:42 RBC Morph Micro Appear ABNORMAL (NORMAL) 12/18/16 06:09 PT 16.3 SECONDS (9.5-11.5) H 12/20/16 06:26 INR 1.53 (0.5-1.4) H 12/20/16 06:26 PTT (Actin FS) 39.0 SECONDS (26.0-38.0) H 12/13/16 19:37 Specimen Source Arterial 12/18/16 22:48 Sample Site R-B 12/18/16 22:48 pH 7.37 (7.35-7.45) 12/18/16 22:48 pCO2 47.0 mmHg (35.0-45.0) H 12/18/16 22:48 pO2 85.0 mmHg (80.0-100.0) 12/18/16 22:48 HCO3 26.0 mEq/L (20.0-26.0) 12/18/16 22:48 Base Excess 1.4 mEq/L (-3.0-3.0) 12/18/16 22:48 O2 Saturation 96.0 % (92.0-100.0) 12/18/16 22:48 Mario Test P 12/18/16 22:48 Vent Rate NA 12/18/16 22:48 Inspired O2 32 12/18/16 22:48 Tidal Volume NA 12/18/16 22:48 PEEP NA 12/18/16 22:48 Pressure (ins/psv/peep) NA 12/18/16 22:48 Critical Value RPINEIRA 12/18/16 22:48 Sodium 130 mEq/L (136-145) L 12/20/16 06:26 Potassium 4.0 mEq/L (3.5-5.1) 12/20/16 06:26 Chloride 98 mEq/L (98-107) 12/20/16 06:26 Carbon Dioxide 21.9 mEq/L (21.0-31.0) 12/20/16 06:26 Anion Gap 14.1 (7.0-16.0) 12/20/16 06:26 BUN 37 mg/dL (7-25) H 12/20/16 06:26 Creatinine 4.8 mg/dL (0.6-1.2) H* 12/20/16 06:26 Est GFR ( Amer) TNP 12/20/16 06:26 Est GFR (Non-Af Amer) TNP 12/20/16 06:26 BUN/Creatinine Ratio 7.7 12/20/16 06:26 Glucose 143 mg/dL (70-105) H 12/20/16 06:26 POC Glucose 89 MG/DL (70 - 105) 12/18/16 19:57 Hemoglobin A1c % 5.1 % (4.0-6.0) 12/15/16 07:44 Calcium 9.1 mg/dL (8.6-10.3) 12/20/16 06:26 Total Bilirubin 2.6 mg/dL (0.3-1.0) H 12/20/16 06:26 AST 21 U/L (13-39) 12/20/16 06:26 ALT 9 U/L (7-52) 12/20/16 06:26 Alkaline Phosphatase 66 U/L (34-104) 12/20/16 06:26 Ammonia 82 umol/L (16-53) H 12/20/16 09:31 Total Protein 5.3 gm/dL (6.0-8.3) L 12/20/16 06:26 Albumin 2.4 gm/dL (3.7-5.3) L 12/20/16 06:26 Globulin 2.9 gm/dL 12/20/16 06:26 Albumin/Globulin Ratio 0.8 (1.0-1.8) L 12/20/16 06:26 Triglycerides 146 mg/dL (<150) 12/15/16 07:44 Cholesterol 67 mg/dL (<200) 12/15/16 07:44 LDL Cholesterol Direct 18 mg/dL (75-193) L 12/15/16 07:44 HDL Cholesterol 7 mg/dL (23-92) L 12/15/16 07:44 TSH 1.39 uIU/ml (0.34-5.60) 12/15/16 07:44 Random Vancomycin 22.7 ug/mL (5.0-40.0) 12/18/16 06:09 - Physical Exam Vitals and I&O: Vital Signs Temp 96.8 F 12/20/16 08:00 Pulse 98 12/20/16 10:15 Resp 16 12/20/16 10:00 BP 108/45 12/20/16 10:15 Pulse Ox 100 12/20/16 10:00 Intake & Output 12/19/16 12/20/16 12/20/16 18:59 06:59 18:59 Intake Total 572.732 150.932 Output Total 2200 0 Balance -1627.268 150.932 Weight (lbs) 84.595 kg 84.595 kg Intake: Intake, IV Amount 572.732 150.932 Norepinephrine 4 mg In 272.732 50.932 Dextrose 5% 250 ml @ 5 MCG/MIN 19.05 mls/hr IV TITR PRN Rx#:[id number] Piperacillin Sodium/ 50 100 Tazobact 2.25 gm In Sodium Chloride 0.9% 50 ml @ 100 mls/hr IV Q8HR [facility] Rx#:[id number] Sodium Chloride 0.9% 250 250 ml @ Wide Open IV .Q0M ONE Rx#:[id number] Output: Urine 0 Stool 200 Other 2000 Other: # Bowel Movements 1 2 Stool Characteristics Soft Liquid Brown Active Medications: Current Medications Acyclovir (Zovirax) 400 mg PO DAILY [facility] Stop: 02/13/17 08:59 Last Admin: 12/19/16 11:52 Dose: Not Given Amiodarone HCl (Cordarone) 200 mg PO BID [facility] Stop: 02/13/17 16:59 Last Admin: 12/19/16 17:15 Dose: Not Given Calcitriol (Rocaltrol) 0.25 mcg PO DAILY [facility] Stop: 02/12/17 08:59 Last Admin: 12/19/16 11:53 Dose: Not Given Calcium Carbonate (Calcium Carb) 600 mg PO TID [facility] Stop: 02/12/17 08:59 Last Admin: 12/19/16 20:43 Dose: Not Given Folic Acid (Folate) 1 mg PO DAILY [facility] Stop: 02/12/17 08:59 Last Admin: 12/19/16 11:53 Dose: Not Given Piperacillin Sod/Tazobactam (Sod 2.25 gm/ Sodium Chloride) 50 mls @ 100 mls/hr IV Q8HR [facility] Stop: 02/13/17 04:59 Last Infusion: 12/20/16 06:30 Dose: Infused Norepinephrine Bitartrate 4 mg (/ Dextrose) 254 mls @ 19.05 mls/hr IV TITR PRN ; Protocol; 5 MCG/MIN PRN Reason: BP MAINTENANCE (PER PROTOCOL) Stop: 02/17/17 00:56 Last Admin: 12/19/16 20:36 Dose: 5.9 mcg/min, 22.47 mls/hr Sodium Chloride (Nacl 0.9%) 1,000 mls @ 50 mls/hr IV .Q20H [facility] Stop: 02/18/17 09:20 Lactobacillus Rhamnosus (Culturelle) 1 each PO DAILY [facility] Stop: 02/14/17 08:59 Last Admin: 12/19/16 11:54 Dose: Not Given Lactulose (Cephulac) 30 gm PO BID [facility] Stop: 02/17/17 09:14 Last Admin: 12/19/16 17:15 Dose: 30 gm Miscellaneous (Clinical Monitoring) 1 ea MC DAILY PRN PRN Reason: RENAL Stop: 02/12/17 11:19 Miscellaneous (Vancomycin Iv Per Pharmacy) 1 ea MC PRN [facility] Stop: 02/13/17 00:14 Miscellaneous (Probiotic Screen) 1 ea PRN PRN PRN Reason: PROTOCOL Stop: 02/13/17 09:47 Pantoprazole Sodium (Protonix) 40 mg PO DAILY [facility] Stop: 02/12/17 08:59 Last Admin: 12/19/16 11:54 Dose: Not Given Propranolol HCl (Inderal) 20 mg PO TID [facility] Stop: 02/12/17 08:59 Last Admin: 12/19/16 20:43 Dose: Not Given Rifaximin (Xifaxan) 200 mg PO Q12H [facility] Stop: 02/12/17 08:59 Last Admin: 12/19/16 20:43 Dose: Not Given Sevelamer Carbonate (Renvela) 800 mg PO TID [facility] Stop: 02/12/17 08:59 Last Admin: 12/19/16 20:43 Dose: Not Given Vitamin B Complex/Vit C/Folic Acid (Vitamin B Complex W/Vitamin C) 1 tab PO DAILY [facility] Stop: 02/12/17 08:59 Last Admin: 12/19/16 11:55 Dose: Not Given General: no acute distress, well developed, well nourished HEENT: atraumatic, normocephalic, PERRLA, EOMI, moist mucous membrane Neck: supple, no thyromegaly Cardiovascular: S1S2, regular Lungs: clear to auscultation bilaterally, clear to percussion Abdomen: soft, no tender, no distended Extremities: other (left thigh has blister and left leg has large open wound with surrounding darkening of the skin.), no cyanosis, no clubbing, no edema Neurological: other (Confused.) Infectious Disease Assmt/Plan - Problem List Patient Problems: All Active Problems Anemia (Acute) D64.9 Cellulitis (Acute) L03.90 Chronic atrial fibrillation (Acute) I48.2 Diabetes mellitus (Acute) E11.9 ESRD (end stage renal disease) on dialysis (Acute) N18.6, Z99.2 Herpes zoster (Acute) B02.9 Left hip pain (Acute) M25.552 BRADLEY (nonalcoholic steatohepatitis) (Acute) K75.81 Peripheral vascular disease (Acute) I73.9 Thrombocytopenia (Acute) D69.6 - Assessment Assessment: 1. Left leg cellulitis. suspect strep versus staph infection, suspect underlying necrosis. 2. ? blister in the left thigh does not seem to be herpes. 3. DM2. 4. CKD 5 on HD. 5. Hypotension. 6. Altered mental status ? Hepatic encephalopathy or acyclovir induced. - Plan Plan: Continue vanco iv and zosyn. DC acyclovir. wound care. blood c/s Nutritional Asmnt/Malnutr-PDOC - Dietary Evaluation Malnutrition Findings (Please click <Entered> for more info): Nutritional Asmnt/Malnutrition Start: 12/15/16 15: 13 Text: Status: Complete Freq: Document 12/15/16 15:13 [facility] (Rec: 12/15/16 15:28 [facility] [id number]) Nutritional Asmnt/Malnutrition Patient General Information Nutritional Screening High Risk Screening Diagnosis Left leg pain, rash suspicious of herpes zoster Pertinent Medical Hx/Surgical Hx CVA, TIA, ESRD on dialysis, DM Subjective Information Pt is a 71-year-old female admitted with chief complaint of pain to left side of hip. Pt was asleep and unarousable to sound. Pt appears overwt with loose skin. RD unable to complete full malnutrition- focused physical assessment. CHRISTINA Pierre reports that pt feeds self independently. Pt has no teeth but currently tolerating food; RN request for soft foods in case. RD discussed with Dr. Domínguez, texture change approved. Current Diet Order/ Nutrition Support Renal Patient / S.O Indicated Pertinent Medications Rocaltrol, Calcium Carb, Cleocin, Folate, Morphine, Protonix, Renevla, Vitamin B Complex Pertinent Labs (12/14) BUN 45H and Creatinine 5 .8H (increasing), Total Bilrubin 2H, Alkaline Phosphatase 132H, Albumin 2.6L , Ammonia 89H Nutritional Hx/Data Height 1.55 m Height (Calculated Centimeters) 154.9 Current Weight (lbs) 66.224 kg Weight (Calculated Kilograms) 66.2 Weight (Calculated Grams) 11559.5 Nikolai Body Weight 105 % Nikolai Body Weight 139 Weight Status Overweight GI Symptoms GI Symptoms None Last BM Difficult in: Chewing Food Allergies No Cultural/Ethnic/Episcopal Belief No preferences noted. Skin Integrity/Comment: Jf 17. No skin breakdown. Rash and bruises noted. Current %PO Good (75-100%) Estimated Nutritional Goals BEE in Kcals: Using Current wt Calories/Kcals/Kg Based on current wt 66.4 kg with consideration of dialysis Kcals Calculated 8075-8982 kcals/day (25-30 kcals/kg) Protein: Using Current wt Protein g/kg: Based on current wt 66.4 kg with consideration of dialysis Protein Calculated 80-93 gm/day (1.2-1.4 gm/kg) Fluid: ml Per MD/DO due to renal failure Nutritional Problem 1. Problem Problem Possible chewing difficulty related to Etiology complete edentulism as evidenced by Signs/Symptoms: RN reports. Malnutrition Alert Protein-Calorie Malnutrition N/A Is there a minimum of two criteria No selected? Query Text:Check all the applicable criteria. A minimum of two criteria are recommended for diagnosis of either severe or non-severe malnutrition. Malnutrition Related to Morbid Obesity Malnutrition related to morbid obesity No Intervention/Recommendation Comments 1. Recommend mechanical soft chopped, 90-gram renal diet to better meet estimated nutritional needs. Expected Outcomes/Goals Expected Outcomes/Goals Have pt meet at least 75% of estimated nutritional needs with acceptable tolerance. Physician Parameters for PEM Serum Albumin (g/dl) 2.4 - 3.0 (Moderate)
[2016-12-20] MEDS: Vitamin B Complex w/Vitamin C Tab PO SCH (12:18)
[2016-12-20] MEDS: Lactobacillus Rhamnosus 10 Billion CFU Capsule PO SCH (12:18)
[2016-12-20] MEDS: Pantoprazole 40 mg EC Tab PO SCH (12:20)
[2016-12-20] MEDS: Venelex 60gm Tube TP SCH (12:20)
[2016-12-20] MEDS: Sevelamer Carnonate 800 mg Tab PO SCH ×3 (12:21→21:08)
[2016-12-20] MEDS: Lactulose 10 Gm/15 mL 30mL UDC PO SCH ×3 (12:23→21:11)
--- NOTE | 2016-12-20 12:29 | Diagnostic Imaging Report ---
Head CT without intravenous contrast Indication: Encephalopathy Comparison: None Technique: Axial images were obtained from the vertex to the skull base without IV contrast. Coronal reconstructions were made. Total DLP: 621, [id number] FINDINGS: Images of the brain obtained without contrast demonstrate no acute hemorrhage. No mass lesions identified. The ventricles and basal cisterns are patent. Atrophy is noted. Mild white matter disease is noted. Atherosclerosis is noted. No skull fractures identified. No soft tissue swelling. The paranasal sinuses are clear. IMPRESSION: No evidence of acute intracranial hemorrhage. Atrophy. Mild supratentorial white matter disease which is nonspecific and may be due to chronic microvessel ischemia. Atherosclerotic vascular disease.
--- NOTE | 2016-12-20 15:19 | General Progress Note ---
Subjective - Review of Systems Service Date: 12/20/16 (Renal Progress Note) Events since last encounter: off vasopressor ct head noted dialyzed yesterday Subjective: none Objective - Results Result Diagrams: 12/20/16 06:26 12/20/16 06:26 Recent Labs: Laboratory Last Values WBC 10.2 Th/cmm (4.8-10.8) 12/20/16 06:26 RBC 3.59 Mil/cmm (3.80-5.20) L 12/20/16 06:26 Hgb 12.3 gm/dL (11.7-16.1) 12/20/16 06:26 Hct 36.5 % (35.0-45.0) D 12/20/16 06:26 MCV 101.8 fl (81-100) H 12/20/16 06:26 MCH 34.3 pg (27.0-31.0) H 12/20/16 06:26 MCHC Differential 33.6 pg (28.0-36.0) 12/20/16 06:26 RDW 17.4 % (11.5-20.0) 12/20/16 06:26 Plt Count 143 Th/cmm (150-400) L D 12/20/16 06:26 MPV 8.6 fl 12/20/16 06:26 Neutrophils % 81.7 % (40.0-80.0) H 12/20/16 06:26 Band Neutrophils % 2 % (0-10) 12/18/16 06:09 Lymphocytes % 6.7 % (20.0-50.0) L 12/20/16 06:26 Monocytes % 10.6 % (2.0-10.0) H 12/20/16 06:26 Eosinophils % 0.5 % (0.0-5.0) 12/20/16 06:26 Basophils % 0.5 % (0.0-2.0) 12/20/16 06:26 Neutrophils (Manual) 82 % (40-80) H 12/18/16 06:09 Lymphocytes 9 % (20-50) L 12/18/16 06:09 Monocytes 6 % (2-10) 12/18/16 06:09 Eosinophils 1 % (0-5) 12/18/16 06:09 Basophils 0 % (0-3) 12/13/16 19:37 Nucleated RBCs 1.0 % (0-0) H 12/18/16 06:09 Platelet Estimate DECREASED PLATELETS (NORMAL) 12/18/16 06:09 Platelet Morphology NORMAL (NORMAL) 12/18/16 06:09 Polychromasia 1+ 12/18/16 06:09 Anisocytosis 1+ 12/17/16 06:42 RBC Morph Micro Appear ABNORMAL (NORMAL) 12/18/16 06:09 PT 16.3 SECONDS (9.5-11.5) H 12/20/16 06:26 INR 1.53 (0.5-1.4) H 12/20/16 06:26 PTT (Actin FS) 39.0 SECONDS (26.0-38.0) H 12/13/16 19:37 Specimen Source Arterial 12/18/16 22:48 Sample Site R-B 12/18/16 22:48 pH 7.37 (7.35-7.45) 12/18/16 22:48 pCO2 47.0 mmHg (35.0-45.0) H 12/18/16 22:48 pO2 85.0 mmHg (80.0-100.0) 12/18/16 22:48 HCO3 26.0 mEq/L (20.0-26.0) 12/18/16 22:48 Base Excess 1.4 mEq/L (-3.0-3.0) 12/18/16 22:48 O2 Saturation 96.0 % (92.0-100.0) 12/18/16 22:48 Mario Test P 12/18/16 22:48 Vent Rate NA 12/18/16 22:48 Inspired O2 32 12/18/16 22:48 Tidal Volume NA 12/18/16 22:48 PEEP NA 12/18/16 22:48 Pressure (ins/psv/peep) NA 12/18/16 22:48 Critical Value RPINEIRA 12/18/16 22:48 Sodium 130 mEq/L (136-145) L 12/20/16 06:26 Potassium 4.0 mEq/L (3.5-5.1) 12/20/16 06:26 Chloride 98 mEq/L (98-107) 12/20/16 06:26 Carbon Dioxide 21.9 mEq/L (21.0-31.0) 12/20/16 06:26 Anion Gap 14.1 (7.0-16.0) 12/20/16 06:26 BUN 37 mg/dL (7-25) H 12/20/16 06:26 Creatinine 4.8 mg/dL (0.6-1.2) H* 12/20/16 06:26 Est GFR ( Amer) TNP 12/20/16 06:26 Est GFR (Non-Af Amer) TNP 12/20/16 06:26 BUN/Creatinine Ratio 7.7 12/20/16 06:26 Glucose 143 mg/dL (70-105) H 12/20/16 06:26 POC Glucose 89 MG/DL (70 - 105) 12/18/16 19:57 Hemoglobin A1c % 5.1 % (4.0-6.0) 12/15/16 07:44 Calcium 9.1 mg/dL (8.6-10.3) 12/20/16 06:26 Total Bilirubin 2.6 mg/dL (0.3-1.0) H 12/20/16 06:26 AST 21 U/L (13-39) 12/20/16 06:26 ALT 9 U/L (7-52) 12/20/16 06:26 Alkaline Phosphatase 66 U/L (34-104) 12/20/16 06:26 Ammonia 82 umol/L (16-53) H 12/20/16 09:31 Total Protein 5.3 gm/dL (6.0-8.3) L 12/20/16 06:26 Albumin 2.4 gm/dL (3.7-5.3) L 12/20/16 06:26 Globulin 2.9 gm/dL 12/20/16 06:26 Albumin/Globulin Ratio 0.8 (1.0-1.8) L 12/20/16 06:26 Triglycerides 146 mg/dL (<150) 12/15/16 07:44 Cholesterol 67 mg/dL (<200) 12/15/16 07:44 LDL Cholesterol Direct 18 mg/dL (75-193) L 12/15/16 07:44 HDL Cholesterol 7 mg/dL (23-92) L 12/15/16 07:44 TSH 1.39 uIU/ml (0.34-5.60) 12/15/16 07:44 Random Vancomycin 22.7 ug/mL (5.0-40.0) 12/18/16 06:09 - Physical Exam Vitals and I&O: Vital Signs Temp 96.8 F 12/20/16 08:00 Pulse 116 12/20/16 12:20 Resp 16 12/20/16 10:00 BP 104/45 12/20/16 12:20 Pulse Ox 100 12/20/16 10:00 Intake & Output 12/19/16 12/20/16 12/20/16 18:59 06:59 18:59 Intake Total 572.732 150.932 Output Total 2200 0 Balance -1627.268 150.932 Weight (lbs) 84.595 kg 84.595 kg Intake: Intake, IV Amount 572.732 150.932 Norepinephrine 4 mg In 272.732 50.932 Dextrose 5% 250 ml @ 5 MCG/MIN 19.05 mls/hr IV TITR PRN Rx#:[id number] Piperacillin Sodium/ 50 100 Tazobact 2.25 gm In Sodium Chloride 0.9% 50 ml @ 100 mls/hr IV Q8HR [facility] Rx#:[id number] Sodium Chloride 0.9% 250 250 ml @ Wide Open IV .Q0M ONE Rx#:[id number] Output: Urine 0 Stool 200 Other 2000 Other: # Bowel Movements 1 2 Stool Characteristics Soft Liquid Brown Active Medications: Current Medications Amiodarone HCl (Cordarone) 200 mg PO BID [facility] Stop: 02/13/17 16:59 Last Admin: 12/20/16 12:18 Dose: 200 mg Calcitriol (Rocaltrol) 0.25 mcg PO DAILY [facility] Stop: 02/12/17 08:59 Last Admin: 12/20/16 12:19 Dose: 0.25 mcg Calcium Carbonate (Calcium Carb) 600 mg PO TID [facility] Stop: 02/12/17 08:59 Last Admin: 12/20/16 12:19 Dose: 600 mg Folic Acid (Folate) 1 mg PO DAILY [facility] Stop: 02/12/17 08:59 Last Admin: 12/20/16 12:20 Dose: 1 mg Piperacillin Sod/Tazobactam (Sod 2.25 gm/ Sodium Chloride) 50 mls @ 100 mls/hr IV Q8HR [facility] Stop: 02/13/17 04:59 Last Infusion: 12/20/16 06:30 Dose: Infused Norepinephrine Bitartrate 4 mg (/ Dextrose) 254 mls @ 19.05 mls/hr IV TITR PRN ; Protocol; 5 MCG/MIN PRN Reason: BP MAINTENANCE (PER PROTOCOL) Stop: 02/17/17 00:56 Last Admin: 12/19/16 20:36 Dose: 5.9 mcg/min, 22.47 mls/hr Dextrose/Sodium Chloride (D5-0.9%Ns) 1,000 mls @ 50 mls/hr IV .Q20H [facility] Stop: 02/18/17 14:29 Lactobacillus Rhamnosus (Culturelle) 1 each PO DAILY [facility] Stop: 02/14/17 08:59 Last Admin: 12/20/16 12:18 Dose: 1 each Lactulose (Cephulac) 30 gm PO TID [facility] Stop: 02/18/17 14:44 Miscellaneous (Clinical Monitoring) 1 ea [facility] DAILY PRN PRN Reason: RENAL Stop: 02/12/17 11:19 Miscellaneous (Vancomycin Iv Per Pharmacy) 1 ea MC PRN [facility] Stop: 02/13/17 00:14 Miscellaneous (Probiotic Screen) 1 ea PRN PRN PRN Reason: PROTOCOL Stop: 02/13/17 09:47 Pantoprazole Sodium (Protonix) 40 mg PO DAILY [facility] Stop: 02/12/17 08:59 Last Admin: 12/20/16 12:20 Dose: 40 mg Propranolol HCl (Inderal) 20 mg PO TID [facility] Stop: 02/12/17 08:59 Last Admin: 12/20/16 12:20 Dose: Not Given Rifaximin (Xifaxan) 200 mg PO Q12H [facility] Stop: 02/12/17 08:59 Last Admin: 12/20/16 12:18 Dose: 200 mg Sevelamer Carbonate (Renvela) 800 mg PO TID [facility] Stop: 02/12/17 08:59 Last Admin: 12/20/16 12:21 Dose: 800 mg Vitamin B Complex/Vit C/Folic Acid (Vitamin B Complex W/Vitamin C) 1 tab PO DAILY [facility] Stop: 02/12/17 08:59 Last Admin: 12/20/16 12:18 Dose: 1 tab General: Alert, No acute distress HEENT: Atraumatic, PERRLA, EOMI Neck: Supple Cardiovascular: Normal S1, Normal S2 Lungs: Clear to auscultation Abdomen: Bowel sounds Extremities: Other (lue avf +), no Clubbing, no Cyanosis, no Edema Skin: Rash (vesicular rash present to the left hip cellulitis) Assessment/Plan - Problem List Patient Problems: All Active Problems Anemia (Acute) D64.9 Cellulitis (Acute) L03.90 Chronic atrial fibrillation (Acute) I48.2 Diabetes mellitus (Acute) E11.9 ESRD (end stage renal disease) on dialysis (Acute) N18.6, Z99.2 Herpes zoster (Acute) B02.9 Left hip pain (Acute) M25.552 BRADLEY (nonalcoholic steatohepatitis) (Acute) K75.81 Peripheral vascular disease (Acute) I73.9 Thrombocytopenia (Acute) D69.6 - Plan Plan: dialysis in am f/u swallow eval abx supportive care Nutritional Asmnt/Malnutr-PDOC - Dietary Evaluation Malnutrition Findings (Please click <Entered> for more info): Nutritional Asmnt/Malnutrition Start: 12/15/16 15: 13 Text: Status: Complete Freq: Document 12/15/16 15:13 [facility] (Rec: 12/15/16 15:28 [facility] SHOSHANA-[id number]) Nutritional Asmnt/Malnutrition Patient General Information Nutritional Screening High Risk Screening Diagnosis Left leg pain, rash suspicious of herpes zoster Pertinent Medical Hx/Surgical Hx CVA, TIA, ESRD on dialysis, DM Subjective Information Pt is a 71-year-old female admitted with chief complaint of pain to left side of hip. Pt was asleep and unarousable to sound. Pt appears overwt with loose skin. RD unable to complete full malnutrition- focused physical assessment. CHRISTINA Pierre reports that pt feeds self independently. Pt has no teeth but currently tolerating food; RN request for soft foods in case. RD discussed with Dr. Domínguez, texture change approved. Current Diet Order/ Nutrition Support Renal Patient / S.O Indicated Pertinent Medications Rocaltrol, Calcium Carb, Cleocin, Folate, Morphine, Protonix, Renevla, Vitamin B Complex Pertinent Labs (12/14) BUN 45H and Creatinine 5 .8H (increasing), Total Bilrubin 2H, Alkaline Phosphatase 132H, Albumin 2.6L , Ammonia 89H Nutritional Hx/Data Height 1.55 m Height (Calculated Centimeters) 154.9 Current Weight (lbs) 66.224 kg Weight (Calculated Kilograms) 66.2 Weight (Calculated Grams) 38275.5 [place] Body Weight 105 % [place] Body Weight 139 Weight Status Overweight GI Symptoms GI Symptoms None Last BM Difficult in: Chewing Food Allergies No Cultural/Ethnic/Gnosticism Belief No preferences noted. Skin Integrity/Comment: Jf 17. No skin breakdown. Rash and bruises noted. Current %PO Good (75-100%) Estimated Nutritional Goals BEE in Kcals: Using Current wt Calories/Kcals/Kg Based on current wt 66.4 kg with consideration of dialysis Kcals Calculated 0023-6480 kcals/day (25-30 kcals/kg) Protein: Using Current wt Protein g/kg: Based on current wt 66.4 kg with consideration of dialysis Protein Calculated 80-93 gm/day (1.2-1.4 gm/kg) Fluid: ml Per MD/DO due to renal failure Nutritional Problem 1. Problem Problem Possible chewing difficulty related to Etiology complete edentulism as evidenced by Signs/Symptoms: RN reports. Malnutrition Alert Protein-Calorie Malnutrition N/A Is there a minimum of two criteria No selected? Query Text:Check all the applicable criteria. A minimum of two criteria are recommended for diagnosis of either severe or non-severe malnutrition. Malnutrition Related to Morbid Obesity Malnutrition related to morbid obesity No Intervention/Recommendation Comments 1. Recommend mechanical soft chopped, 90-gram renal diet to better meet estimated nutritional needs. Expected Outcomes/Goals Expected Outcomes/Goals Have pt meet at least 75% of estimated nutritional needs with acceptable tolerance. Physician Parameters for PEM Serum Albumin (g/dl) 2.4 - 3.0 (Moderate)
[2016-12-20] MEDS: D5-0.9%NS 1,000 ML IV SCH (19:35)
--- NOTE | 2016-12-20 20:51 | Consultation ---
DATE OF CONSULTATION: 12/20/2016 NEUROLOGY CONSULT HISTORY OF PRESENT ILLNESS: The patient is a 71-year-old. The patient is in neurologic consultation because of altered mentation. The patient had abnormal movements with spasm of the face with eye closures with some twitching of the arms. The patient admitted with complaints of pain on the left side. She has rash in the left hip area. Per the ID on the case, probably Shingles. The patient here continues to be lethargic and confused. Though, she will awake. PAST MEDICAL HISTORY: 1. Hypertension. 2. The patient has history of atrial fibrillation. 3. History of end-stage renal disease, on hemodialysis. 4. Diabetes. 5. Previous stroke. MEDICATIONS: As per reconciliation. Here, the patient is on acyclovir, Amiodarone, folic acid, lactulose, vancomycin, Protonix, piperacillin, rifaximin, and gabapentin that has been stopped. REVIEW OF SYSTEMS: No obvious seizures. Abnormal myoclonic type movements of the arms. Some twitching of the face. No chest pain. Some shortness of breath. PHYSICAL EXAMINATION: VITAL SIGNS: Temperature 98.0, yesterday temperature was 102. Blood pressure was 100/46. Pulse is 64. NECK: Supple. No bruits. HEART: Sounds S1 and S2. LUNGS: Clear. NEUROLOGIC: The patient actually will awaken. She opens her eyes. When I examined her, she was resistive to exam. At times, she was resistive to opening the eyes and doing the pupils response. The patient will move the upper extremity, not much movement of the lower extremity. The patient complains of pain when I touched the left leg laterally. LOWER EXTREMITIES: Withdrawal, but less than the arms. IMPRESSION: 1. Encephalopathy. 2. Abnormal movements, myoclonus. Possible metabolic medication inflammatory. 3. Cellulitis, possible herpes zoster. 4. The patient with end-stage renal disease. 5. Diabetes. PLAN: CT scan of the head. Medication adjustment possible on trial of either Tegretol or Klonopin. JOB# [id number]
[2016-12-20] MEDS ORDERED: Hydrocodone/APAP 5mg/325mg Tab PO PRN (22:17)
[2016-12-21] MEDS ORDERED: Heparin Sod 1,000 Units/mL 10ml HD SCH
[2016-12-21] MEDS ORDERED: Albumin 25% 25gm/100mL 25 GM/100 ML BTL IV PRN
[2016-12-21] MEDS: Piperacillin/Tazobact 2.25 gm in 0.9% NS 50 ML IV SCH ×3 (04:56→21:57)
[2016-12-21 05:33] LABS: INR 1.51 (0.5-1.4)
[2016-12-21 05:47] LABS: % EOSINOPHILS 0.6 % (0.0-5.0); % LYMPHOCYTES 13.4 % (20.0-50.0); % MONOCYTES 8.1 % (2.0-10.0); % NEUTROPHILS 77.9 % (40.0-80.0); HEMATOCRIT 34.4 % (35.0-45.0); HEMOGLOBIN 11.5 gm/dL (11.7-16.1); MEAN CELL VOLUME 101.6 fl (81-100); MEAN CORPUSCULAR HEMOGLOBIN 33.9 pg (27.0-31.0); MEAN CORPUSCULAR HGB CONC 33.4 pg (28.0-36.0); MEAN PLATELET VOLUME 9.2 fl; NEUTROPHILE ABSOLUTE 6.6 Th/cmm (1.8-8.0); PLATELET COUNT 80 Th/cmm (150-400); RED BLOOD COUNT 3.38 Mil/cmm (3.80-5.20); RED CELL DISTRIBUTION WIDTH 16.9 % (11.5-20.0); WHITE BLOOD COUNT 8.5 Th/cmm (4.8-10.8)
[2016-12-21 06:33] LABS: ALB/GLOB RATIO 0.7 (1.0-1.8); ALKALINE PHOSPHATASE 59 U/L (34-104); ANION GAP 16.6 (7.0-16.0); BUN - UREA NITROGEN 45 mg/dL (7-25); BUN/CREATININE RATIO 8.2; CALCIUM SERUM 8.9 mg/dL (8.6-10.3); CARBON DIOXIDE 21.3 mEq/L (21.0-31.0); CHLORIDE 101 mEq/L (98-107); GLUCOSE 154 mg/dL (70-105); POTASSIUM SERUM 3.9 mEq/L (3.5-5.1); SGOT 26 U/L (13-39); SGPT/ALT 8 U/L (7-52); SODIUM SERUM 135 mEq/L (136-145)
[2016-12-21 06:35] LABS: CREATININE - SERUM 5.5 mg/dL (0.6-1.2)
--- NOTE | 2016-12-21 08:20 | General Progress Note ---
Subjective - Review of Systems Service Date: 12/21/16 Subjective: transferred out of ICU. off Levofed. More awake and alert this morning. dialysis today. herpetic lesions present. Objective - Results Result Diagrams: 12/21/16 05:00 12/21/16 05:00 Recent Labs: Laboratory Last Values WBC 8.5 Th/cmm (4.8-10.8) 12/21/16 05:00 RBC 3.38 Mil/cmm (3.80-5.20) L 12/21/16 05:00 Hgb 11.5 gm/dL (11.7-16.1) L 12/21/16 05:00 Hct 34.4 % (35.0-45.0) L 12/21/16 05:00 MCV 101.6 fl (81-100) H 12/21/16 05:00 MCH 33.9 pg (27.0-31.0) H 12/21/16 05:00 MCHC Differential 33.4 pg (28.0-36.0) 12/21/16 05:00 RDW 16.9 % (11.5-20.0) 12/21/16 05:00 Plt Count 80 Th/cmm (150-400) L D 12/21/16 05:00 MPV 9.2 fl 12/21/16 05:00 Neutrophils % 77.9 % (40.0-80.0) 12/21/16 05:00 Band Neutrophils % 2 % (0-10) 12/18/16 06:09 Lymphocytes % 13.4 % (20.0-50.0) L 12/21/16 05:00 Monocytes % 8.1 % (2.0-10.0) 12/21/16 05:00 Eosinophils % 0.6 % (0.0-5.0) 12/21/16 05:00 Basophils % 0.0 % (0.0-2.0) 12/21/16 05:00 Neutrophils (Manual) 82 % (40-80) H 12/18/16 06:09 Lymphocytes 9 % (20-50) L 12/18/16 06:09 Monocytes 6 % (2-10) 12/18/16 06:09 Eosinophils 1 % (0-5) 12/18/16 06:09 Basophils 0 % (0-3) 12/13/16 19:37 Nucleated RBCs 1.0 % (0-0) H 12/18/16 06:09 Platelet Estimate DECREASED PLATELETS (NORMAL) 12/18/16 06:09 Platelet Morphology NORMAL (NORMAL) 12/18/16 06:09 Polychromasia 1+ 12/18/16 06:09 Anisocytosis 1+ 12/17/16 06:42 RBC Morph Micro Appear ABNORMAL (NORMAL) 12/18/16 06:09 PT 16.0 SECONDS (9.5-11.5) H 12/21/16 05:00 INR 1.51 (0.5-1.4) H 12/21/16 05:00 PTT (Actin FS) 39.0 SECONDS (26.0-38.0) H 12/13/16 19:37 Specimen Source Arterial 12/18/16 22:48 Sample Site R-B 12/18/16 22:48 pH 7.37 (7.35-7.45) 12/18/16 22:48 pCO2 47.0 mmHg (35.0-45.0) H 12/18/16 22:48 pO2 85.0 mmHg (80.0-100.0) 12/18/16 22:48 HCO3 26.0 mEq/L (20.0-26.0) 12/18/16 22:48 Base Excess 1.4 mEq/L (-3.0-3.0) 12/18/16 22:48 O2 Saturation 96.0 % (92.0-100.0) 12/18/16 22:48 Mario Test P 12/18/16 22:48 Vent Rate NA 12/18/16 22:48 Inspired O2 32 12/18/16 22:48 Tidal Volume NA 12/18/16 22:48 PEEP NA 12/18/16 22:48 Pressure (ins/psv/peep) NA 12/18/16 22:48 Critical Value RPINEIRA 12/18/16 22:48 Sodium 135 mEq/L (136-145) L 12/21/16 05:00 Potassium 3.9 mEq/L (3.5-5.1) 12/21/16 05:00 Chloride 101 mEq/L (98-107) 12/21/16 05:00 Carbon Dioxide 21.3 mEq/L (21.0-31.0) 12/21/16 05:00 Anion Gap 16.6 (7.0-16.0) H 12/21/16 05:00 BUN 45 mg/dL (7-25) H 12/21/16 05:00 Creatinine 5.5 mg/dL (0.6-1.2) H* 12/21/16 05:00 Est GFR ( Amer) TNP 12/21/16 05:00 Est GFR (Non-Af Amer) TNP 12/21/16 05:00 BUN/Creatinine Ratio 8.2 12/21/16 05:00 Glucose 154 mg/dL (70-105) H 12/21/16 05:00 POC Glucose 89 MG/DL (70 - 105) 12/18/16 19:57 Hemoglobin A1c % 5.1 % (4.0-6.0) 12/15/16 07:44 Calcium 8.9 mg/dL (8.6-10.3) 12/21/16 05:00 Total Bilirubin 2.0 mg/dL (0.3-1.0) H 12/21/16 05:00 AST 26 U/L (13-39) 12/21/16 05:00 ALT 8 U/L (7-52) 12/21/16 05:00 Alkaline Phosphatase 59 U/L (34-104) 12/21/16 05:00 Ammonia 51 umol/L (16-53) 12/21/16 05:00 Total Protein 4.7 gm/dL (6.0-8.3) L 12/21/16 05:00 Albumin 2.0 gm/dL (3.7-5.3) L 12/21/16 05:00 Globulin 2.7 gm/dL 12/21/16 05:00 Albumin/Globulin Ratio 0.7 (1.0-1.8) L 12/21/16 05:00 Triglycerides 146 mg/dL (<150) 12/15/16 07:44 Cholesterol 67 mg/dL (<200) 12/15/16 07:44 LDL Cholesterol Direct 18 mg/dL (75-193) L 12/15/16 07:44 HDL Cholesterol 7 mg/dL (23-92) L 12/15/16 07:44 TSH 1.39 uIU/ml (0.34-5.60) 12/15/16 07:44 Random Vancomycin 28.0 ug/mL (5.0-40.0) 12/21/16 05:00 - Physical Exam Vitals and I&O: Vital Signs Temp 97.4 F 12/21/16 04:00 Pulse 80 12/21/16 06:00 Resp 16 12/21/16 06:00 BP 120/50 12/21/16 06:00 Pulse Ox 100 12/21/16 06:00 Intake & Output 12/20/16 12/21/16 12/21/16 18:59 06:59 18:59 Intake Total 200 170 Output Total 0 Balance 200 170 Weight (lbs) 84.368 kg 85.729 kg Intake: Intake, IV Amount 50 50 Piperacillin Sodium/ 50 50 Tazobact 2.25 gm In Sodium Chloride 0.9% 50 ml @ 100 mls/hr IV Q8HR [facility] Rx#:[id number] Oral 150 120 Output: Urine 0 Other: Stool Characteristics Liquid Soft Brown Liquid Brown Active Medications: Current Medications Acetaminophen/Hydrocodone Bitart ([place] 5mg/325mg) 1 tab PO Q6H PRN PRN Reason: Pain (Moderate) Stop: 02/18/17 22:16 Last Admin: 12/21/16 00:00 Dose: 1 tab Amiodarone HCl (Cordarone) 200 mg PO BID [facility] Stop: 02/13/17 16:59 Last Admin: 12/20/16 19:36 Dose: 200 mg Calcitriol (Rocaltrol) 0.25 mcg PO DAILY [facility] Stop: 02/12/17 08:59 Last Admin: 12/20/16 12:19 Dose: 0.25 mcg Calcium Carbonate (Calcium Carb) 600 mg PO TID [facility] Stop: 02/12/17 08:59 Last Admin: 12/20/16 21:08 Dose: 600 mg Folic Acid (Folate) 1 mg PO DAILY [facility] Stop: 02/12/17 08:59 Last Admin: 12/20/16 12:20 Dose: 1 mg Heparin Sodium (Porcine) (Heparin Sodium) 0 units HD UD [facility] Stop: 12/22/16 00:00 Piperacillin Sod/Tazobactam (Sod 2.25 gm/ Sodium Chloride) 50 mls @ 100 mls/hr IV Q8HR [facility] Stop: 02/13/17 04:59 Last Admin: 12/21/16 04:56 Dose: 100 mls/hr Norepinephrine Bitartrate 4 mg (/ Dextrose) 254 mls @ 19.05 mls/hr IV TITR PRN ; Protocol; 5 MCG/MIN PRN Reason: BP MAINTENANCE (PER PROTOCOL) Stop: 02/17/17 00:56 Last Admin: 12/19/16 20:36 Dose: 5.9 mcg/min, 22.47 mls/hr Dextrose/Sodium Chloride (D5-0.9%Ns) 1,000 mls @ 50 mls/hr IV .Q20H [facility] Stop: 02/18/17 14:29 Last Admin: 12/20/16 19:35 Dose: 50 mls/hr Albumin Human (Albuminar 25%) 25 gm in 100 mls @ 50 mls/hr IV PRN PRN PRN Reason: BP Support During HD Stop: 12/22/16 00:00 Lactobacillus Rhamnosus (Culturelle) 1 each PO DAILY [facility] Stop: 02/14/17 08:59 Last Admin: 12/20/16 12:18 Dose: 1 each Lactulose (Cephulac) 30 gm PO TID [facility] Stop: 02/18/17 14:44 Last Admin: 12/20/16 21:11 Dose: 30 gm Miscellaneous (Clinical Monitoring) 1 ea DAILY PRN PRN Reason: RENAL Stop: 02/12/17 11:19 Miscellaneous (Vancomycin Iv Per Pharmacy) 1 ea PRN [facility] Stop: 02/13/17 00:14 Miscellaneous (Probiotic Screen) 1 [facility] PRN PRN PRN Reason: PROTOCOL Stop: 02/13/17 09:47 Pantoprazole Sodium (Protonix) 40 mg PO DAILY [facility] Stop: 02/12/17 08:59 Last Admin: 12/20/16 12:20 Dose: 40 mg Propranolol HCl (Inderal) 20 mg PO TID [facility] Stop: 02/12/17 08:59 Last Admin: 12/20/16 21:08 Dose: 20 mg Rifaximin (Xifaxan) 200 mg PO Q12H [facility] Stop: 02/12/17 08:59 Last Admin: 12/20/16 21:09 Dose: 200 mg Sevelamer Carbonate (Renvela) 800 mg PO TID [facility] Stop: 02/12/17 08:59 Last Admin: 12/20/16 21:08 Dose: 800 mg Vitamin B Complex/Vit C/Folic Acid (Vitamin B Complex W/Vitamin C) 1 tab PO DAILY [facility] Stop: 02/12/17 08:59 Last Admin: 12/20/16 12:18 Dose: 1 tab General: Alert, No acute distress HEENT: Atraumatic, PERRLA, EOMI Neck: Supple Cardiovascular: Normal S1, Normal S2 Lungs: Clear to auscultation Abdomen: Bowel sounds Extremities: Other (lue avf +), no Clubbing, no Cyanosis, no Edema Skin: Rash (vesicular rash present to the left hip cellulitis) Assessment/Plan - Problem List Patient Problems: All Active Problems Anemia (Acute) D64.9 Cellulitis (Acute) L03.90 Chronic atrial fibrillation (Acute) I48.2 Diabetes mellitus (Acute) E11.9 ESRD (end stage renal disease) on dialysis (Acute) N18.6, Z99.2 Herpes zoster (Acute) B02.9 Left hip pain (Acute) M25.552 BRADLEY (nonalcoholic steatohepatitis) (Acute) K75.81 Peripheral vascular disease (Acute) I73.9 Thrombocytopenia (Acute) D69.6 - Assessment Assessment: ALOC ... resolved. Acute Kidney Insufficiency on CKD ... will order gentle hydration of NS @ 50cc/ hr. hepatic encephalopathy .... repeat ammonia level, continue lactulose AK left leg pain secondary to cellulitis ... continue IV antibiotics per ID herpes zoster ... on acyclovir ESRD on HD per nephro Diabetes Mellitus ... continue to monitor, SSI Chronic Atrial Fibrillation ... will order Cardiology consults. please see dictated report Thrombocytopenia secondary to liver cirrhosis ... will order PT/INR Anemia stable PVD BRADLEY - Plan Plan: eft leg pain cellulitis herpes zoster End Stage Renal Disease on HD Diabetes Mellitus Chronic Atrial Fibrillation Thrombocytopenia Anemia PVD BRADLEY Nutritional Asmnt/Malnutr-PDOC - Dietary Evaluation Malnutrition Findings (Please click <Entered> for more info): Nutritional Asmnt/Malnutrition Start: 12/15/16 15: 13 Text: Status: Complete Freq: Document 12/15/16 15:13 [facility] (Rec: 12/15/16 15:28 [facility] SHOSHANA-[id number]) Nutritional Asmnt/Malnutrition Patient General Information Nutritional Screening High Risk Screening Diagnosis Left leg pain, rash suspicious of herpes zoster Pertinent Medical Hx/Surgical Hx CVA, TIA, ESRD on dialysis, DM Subjective Information Pt is a 71-year-old female admitted with chief complaint of pain to left side of hip. Pt was asleep and unarousable to sound. Pt appears overwt with loose skin. RD unable to complete full malnutrition- focused physical assessment. CHRISTINA Pierre reports that pt feeds self independently. Pt has no teeth but currently tolerating food; RN request for soft foods in case. RD discussed with Dr. Domínguez, texture change approved. Current Diet Order/ Nutrition Support Renal Patient / S.O Indicated Pertinent Medications Rocaltrol, Calcium Carb, Cleocin, Folate, Morphine, Protonix, Renevla, Vitamin B Complex Pertinent Labs (12/14) BUN 45H and Creatinine 5 .8H (increasing), Total Bilrubin 2H, Alkaline Phosphatase 132H, Albumin 2.6L , Ammonia 89H Nutritional Hx/Data Height 1.55 m Height (Calculated Centimeters) 154.9 Current Weight (lbs) 66.224 kg Weight (Calculated Kilograms) 66.2 Weight (Calculated Grams) 08610.5 [place] Body Weight 105 % [place] Body Weight 139 Weight Status Overweight GI Symptoms GI Symptoms None Last BM Difficult in: Chewing Food Allergies No Cultural/Ethnic/[employer] Belief No preferences noted. Skin Integrity/Comment: Jf 17. No skin breakdown. Rash and bruises noted. Current %PO Good (75-100%) Estimated Nutritional Goals BEE in Kcals: Using Current wt Calories/Kcals/Kg Based on current wt 66.4 kg with consideration of dialysis Kcals Calculated 6098-0159 kcals/day (25-30 kcals/kg) Protein: Using Current wt Protein g/kg: Based on current wt 66.4 kg with consideration of dialysis Protein Calculated 80-93 gm/day (1.2-1.4 gm/kg) Fluid: ml Per MD/DO due to renal failure Nutritional Problem 1. Problem Problem Possible chewing difficulty related to Etiology complete edentulism as evidenced by Signs/Symptoms: RN reports. Malnutrition Alert Protein-Calorie Malnutrition N/A Is there a minimum of two criteria No selected? Query Text:Check all the applicable criteria. A minimum of two criteria are recommended for diagnosis of either severe or non-severe malnutrition. Malnutrition Related to Morbid Obesity Malnutrition related to morbid obesity No Intervention/Recommendation Comments 1. Recommend mechanical soft chopped, 90-gram renal diet to better meet estimated nutritional needs. Expected Outcomes/Goals Expected Outcomes/Goals Have pt meet at least 75% of estimated nutritional needs with acceptable tolerance. Physician Parameters for PEM Serum Albumin (g/dl) 2.4 - 3.0 (Moderate)
[2016-12-21] MEDS: Lactobacillus Rhamnosus 10 Billion CFU Capsule PO SCH (09:10)
[2016-12-21] MEDS: Pantoprazole 40 mg EC Tab PO SCH (09:10)
[2016-12-21] MEDS: Vitamin B Complex w/Vitamin C Tab PO SCH (09:10)
[2016-12-21] MEDS: Lactulose 10 Gm/15 mL 30mL UDC PO SCH ×3 (09:11→21:50)
[2016-12-21] MEDS: Venelex 60gm Tube TP SCH (09:12)
[2016-12-21 11:15] LABS: HEP B CORE IGM Negative (Negative); HEP C ANTIBODY 0.1 s/co ratio (0.0-0.9)
[2016-12-21] MEDS: Sevelamer Carnonate 800 mg Tab PO SCH ×3 (12:29→21:47)
[2016-12-21] MEDS: D5-0.9%NS 1,000 ML IV SCH (14:30)
--- NOTE | 2016-12-21 15:18 | General Progress Note ---
Subjective - Review of Systems Service Date: 12/21/16 Events since last encounter: out of icu off pressors for hd today Subjective: feels ok, intermittently confused Objective - Results Result Diagrams: 12/21/16 05:00 12/21/16 05:00 Recent Labs: Laboratory Last Values WBC 8.5 Th/cmm (4.8-10.8) 12/21/16 05:00 RBC 3.38 Mil/cmm (3.80-5.20) L 12/21/16 05:00 Hgb 11.5 gm/dL (11.7-16.1) L 12/21/16 05:00 Hct 34.4 % (35.0-45.0) L 12/21/16 05:00 MCV 101.6 fl (81-100) H 12/21/16 05:00 MCH 33.9 pg (27.0-31.0) H 12/21/16 05:00 MCHC Differential 33.4 pg (28.0-36.0) 12/21/16 05:00 RDW 16.9 % (11.5-20.0) 12/21/16 05:00 Plt Count 80 Th/cmm (150-400) L D 12/21/16 05:00 MPV 9.2 fl 12/21/16 05:00 Neutrophils % 77.9 % (40.0-80.0) 12/21/16 05:00 Band Neutrophils % 2 % (0-10) 12/18/16 06:09 Lymphocytes % 13.4 % (20.0-50.0) L 12/21/16 05:00 Monocytes % 8.1 % (2.0-10.0) 12/21/16 05:00 Eosinophils % 0.6 % (0.0-5.0) 12/21/16 05:00 Basophils % 0.0 % (0.0-2.0) 12/21/16 05:00 Neutrophils (Manual) 82 % (40-80) H 12/18/16 06:09 Lymphocytes 9 % (20-50) L 12/18/16 06:09 Monocytes 6 % (2-10) 12/18/16 06:09 Eosinophils 1 % (0-5) 12/18/16 06:09 Basophils 0 % (0-3) 12/13/16 19:37 Nucleated RBCs 1.0 % (0-0) H 12/18/16 06:09 Platelet Estimate DECREASED PLATELETS (NORMAL) 12/18/16 06:09 Platelet Morphology NORMAL (NORMAL) 12/18/16 06:09 Polychromasia 1+ 12/18/16 06:09 Anisocytosis 1+ 12/17/16 06:42 RBC Morph Micro Appear ABNORMAL (NORMAL) 12/18/16 06:09 PT 16.0 SECONDS (9.5-11.5) H 12/21/16 05:00 INR 1.51 (0.5-1.4) H 12/21/16 05:00 PTT (Actin FS) 39.0 SECONDS (26.0-38.0) H 12/13/16 19:37 Specimen Source Arterial 12/18/16 22:48 Sample Site R-B 12/18/16 22:48 pH 7.37 (7.35-7.45) 12/18/16 22:48 pCO2 47.0 mmHg (35.0-45.0) H 12/18/16 22:48 pO2 85.0 mmHg (80.0-100.0) 12/18/16 22:48 HCO3 26.0 mEq/L (20.0-26.0) 12/18/16 22:48 Base Excess 1.4 mEq/L (-3.0-3.0) 12/18/16 22:48 O2 Saturation 96.0 % (92.0-100.0) 12/18/16 22:48 Mario Test P 12/18/16 22:48 Vent Rate NA 12/18/16 22:48 Inspired O2 32 12/18/16 22:48 Tidal Volume NA 12/18/16 22:48 PEEP NA 12/18/16 22:48 Pressure (ins/psv/peep) NA 12/18/16 22:48 Critical Value RPINEIRA 12/18/16 22:48 Sodium 135 mEq/L (136-145) L 12/21/16 05:00 Potassium 3.9 mEq/L (3.5-5.1) 12/21/16 05:00 Chloride 101 mEq/L (98-107) 12/21/16 05:00 Carbon Dioxide 21.3 mEq/L (21.0-31.0) 12/21/16 05:00 Anion Gap 16.6 (7.0-16.0) H 12/21/16 05:00 BUN 45 mg/dL (7-25) H 12/21/16 05:00 Creatinine 5.5 mg/dL (0.6-1.2) H* 12/21/16 05:00 Est GFR ( Amer) TNP 12/21/16 05:00 Est GFR (Non-Af Amer) TNP 12/21/16 05:00 BUN/Creatinine Ratio 8.2 12/21/16 05:00 Glucose 154 mg/dL (70-105) H 12/21/16 05:00 POC Glucose 89 MG/DL (70 - 105) 12/18/16 19:57 Hemoglobin A1c % 5.1 % (4.0-6.0) 12/15/16 07:44 Calcium 8.9 mg/dL (8.6-10.3) 12/21/16 05:00 Total Bilirubin 2.0 mg/dL (0.3-1.0) H 12/21/16 05:00 AST 26 U/L (13-39) 12/21/16 05:00 ALT 8 U/L (7-52) 12/21/16 05:00 Alkaline Phosphatase 59 U/L (34-104) 12/21/16 05:00 Ammonia 51 umol/L (16-53) 12/21/16 05:00 Total Protein 4.7 gm/dL (6.0-8.3) L 12/21/16 05:00 Albumin 2.0 gm/dL (3.7-5.3) L 12/21/16 05:00 Globulin 2.7 gm/dL 12/21/16 05:00 Albumin/Globulin Ratio 0.7 (1.0-1.8) L 12/21/16 05:00 Triglycerides 146 mg/dL (<150) 12/15/16 07:44 Cholesterol 67 mg/dL (<200) 12/15/16 07:44 LDL Cholesterol Direct 18 mg/dL (75-193) L 12/15/16 07:44 HDL Cholesterol 7 mg/dL (23-92) L 12/15/16 07:44 TSH 1.39 uIU/ml (0.34-5.60) 12/15/16 07:44 Random Vancomycin 28.0 ug/mL (5.0-40.0) 12/21/16 05:00 Hepatitis A IgM Ab Negative (Negative) 12/20/16 14:37 Hep Bs Antigen Negative (Negative) 12/20/16 14:37 Hep B Core IgM Ab Negative (Negative) 12/20/16 14:37 Hepatitis C Antibody 0.1 s/co ratio (0.0-0.9) 12/20/16 14:37 - Physical Exam Vitals and I&O: Vital Signs Temp 97.4 F 12/21/16 04:00 Pulse 78 12/21/16 14:28 Resp 16 12/21/16 06:00 BP 115/73 12/21/16 14:28 Pulse Ox 100 12/21/16 06:00 Intake & Output 12/20/16 12/21/16 12/21/16 18:59 06:59 18:59 Intake Total 200 220 945.833 Output Total 0 Balance 200 220 945.833 Weight (lbs) 84.368 kg 85.729 kg Intake: Intake, IV Amount 50 100 945.833 D5-0.9%Ns 1,000 ml @ 50 945.833 mls/hr IV .Q20H [facility] Rx#: [id number] Piperacillin Sodium/ 50 100 Tazobact 2.25 gm In Sodium Chloride 0.9% 50 ml @ 100 mls/hr IV Q8HR [facility] Rx#:[id number] Oral 150 120 Output: Urine 0 Other: Stool Characteristics Liquid Soft Liquid Brown Liquid Brown Active Medications: Current Medications Amiodarone HCl (Cordarone) 200 mg PO BID [facility] Stop: 02/13/17 16:59 Last Admin: 12/21/16 09:12 Dose: Not Given Calcitriol (Rocaltrol) 0.25 mcg PO DAILY [facility] Stop: 02/12/17 08:59 Last Admin: 12/21/16 09:10 Dose: 0.25 mcg Calcium Carbonate (Calcium Carb) 600 mg PO TID [facility] Stop: 02/12/17 08:59 Last Admin: 12/21/16 14:29 Dose: 600 mg Folic Acid (Folate) 1 mg PO DAILY [facility] Stop: 02/12/17 08:59 Last Admin: 12/21/16 09:10 Dose: 1 mg Heparin Sodium (Porcine) (Heparin Sodium) 0 units HD UD [facility] Stop: 12/22/16 00:00 Last Admin: 12/21/16 14:17 Dose: Not Given Piperacillin Sod/Tazobactam (Sod 2.25 gm/ Sodium Chloride) 50 mls @ 100 mls/hr IV Q8HR [facility] Stop: 02/13/17 04:59 Last Admin: 12/21/16 14:21 Dose: 100 mls/hr Norepinephrine Bitartrate 4 mg (/ Dextrose) 254 mls @ 19.05 mls/hr IV TITR PRN ; Protocol; 5 MCG/MIN PRN Reason: BP MAINTENANCE (PER PROTOCOL) Stop: 02/17/17 00:56 Last Admin: 12/19/16 20:36 Dose: 5.9 mcg/min, 22.47 mls/hr Dextrose/Sodium Chloride (D5-0.9%Ns) 1,000 mls @ 50 mls/hr IV .Q20H [facility] Stop: 02/18/17 14:29 Last Admin: 12/21/16 14:30 Dose: 50 mls/hr Albumin Human (Albuminar 25%) 25 gm in 100 mls @ 50 mls/hr IV PRN PRN PRN Reason: BP Support During HD Stop: 12/22/16 00:00 Lactobacillus Rhamnosus (Culturelle) 1 each PO DAILY [facility] Stop: 02/14/17 08:59 Last Admin: 12/21/16 09:10 Dose: 1 each Lactulose (Cephulac) 30 gm PO TID [facility] Stop: 02/18/17 14:44 Last Admin: 12/21/16 14:31 Dose: Not Given Miscellaneous (Clinical Monitoring) 1 ea DAILY PRN PRN Reason: RENAL Stop: 02/12/17 11:19 Miscellaneous (Vancomycin Iv Per Pharmacy) 1 ea PRN [facility] Stop: 02/13/17 00:14 Miscellaneous (Probiotic Screen) 1 ea PRN PRN PRN Reason: PROTOCOL Stop: 02/13/17 09:47 Pantoprazole Sodium (Protonix) 40 mg PO DAILY [facility] Stop: 02/12/17 08:59 Last Admin: 12/21/16 09:10 Dose: 40 mg Propranolol HCl (Inderal) 20 mg PO TID [facility]ER Stop: 02/12/17 08:59 Last Admin: 12/21/16 14:28 Dose: 20 mg Rifaximin (Xifaxan) 200 mg PO Q12H [facility] Stop: 02/12/17 08:59 Last Admin: 12/21/16 09:10 Dose: 200 mg Sevelamer Carbonate (Renvela) 800 mg PO TID [facility]ER Stop: 02/12/17 08:59 Last Admin: 12/21/16 14:29 Dose: 800 mg Vitamin B Complex/Vit C/Folic Acid (Vitamin B Complex W/Vitamin C) 1 tab PO DAILY [facility] Stop: 02/12/17 08:59 Last Admin: 12/21/16 09:10 Dose: 1 tab General: No acute distress, no Alert (intermittent confusion but conversant) HEENT: Atraumatic, PERRLA, EOMI Neck: Supple Cardiovascular: Normal S1, Normal S2 Lungs: Clear to auscultation Abdomen: Bowel sounds Extremities: Other (lue avf +), no Clubbing, no Cyanosis, no Edema Skin: Rash (vesicular rash present to the left hip cellulitis) Assessment/Plan - Problem List Patient Problems: All Active Problems Anemia (Acute) D64.9 Cellulitis (Acute) L03.90 Chronic atrial fibrillation (Acute) I48.2 Diabetes mellitus (Acute) E11.9 ESRD (end stage renal disease) on dialysis (Acute) N18.6, Z99.2 Herpes zoster (Acute) B02.9 Left hip pain (Acute) M25.552 BRADLEY (nonalcoholic steatohepatitis) (Acute) K75.81 Peripheral vascular disease (Acute) I73.9 Thrombocytopenia (Acute) D69.6 - Plan Plan: dialysis today cont abx supportive care Nutritional Asmnt/Malnutr-PDOC - Dietary Evaluation Malnutrition Findings (Please click <Entered> for more info): Nutritional Asmnt/Malnutrition Start: 12/15/16 15: 13 Text: Status: Complete Freq: Document 12/15/16 15:13 [facility] (Rec: 12/15/16 15:28 [facility] SHOSHANA-[id number]) Nutritional Asmnt/Malnutrition Patient General Information Nutritional Screening High Risk Screening Diagnosis Left leg pain, rash suspicious of herpes zoster Pertinent Medical Hx/Surgical Hx CVA, TIA, ESRD on dialysis, DM Subjective Information Pt is a 71-year-old female admitted with chief complaint of pain to left side of hip. Pt was asleep and unarousable to sound. Pt appears overwt with loose skin. RD unable to complete full malnutrition- focused physical assessment. CHRISTINA Pierre reports that pt feeds self independently. Pt has no teeth but currently tolerating food; RN request for soft foods in case. RD discussed with Dr. Domínguez, texture change approved. Current Diet Order/ Nutrition Support Renal Patient / S.O Indicated Pertinent Medications Rocaltrol, Calcium Carb, Cleocin, Folate, Morphine, Protonix, Renevla, Vitamin B Complex Pertinent Labs (12/14) BUN 45H and Creatinine 5 .8H (increasing), Total Bilrubin 2H, Alkaline Phosphatase 132H, Albumin 2.6L , Ammonia 89H Nutritional Hx/Data Height 1.55 m Height (Calculated Centimeters) 154.9 Current Weight (lbs) 66.224 kg Weight (Calculated Kilograms) 66.2 Weight (Calculated Grams) 15372.5 [place] Body Weight 105 % [place] Body Weight 139 Weight Status Overweight GI Symptoms GI Symptoms None Last BM Difficult in: Chewing Food Allergies No Cultural/Ethnic/Confucianism Belief No preferences noted. Skin Integrity/Comment: Jf 17. No skin breakdown. Rash and bruises noted. Current %PO Good (75-100%) Estimated Nutritional Goals BEE in Kcals: Using Current wt Calories/Kcals/Kg Based on current wt 66.4 kg with consideration of dialysis Kcals Calculated 0957-8194 kcals/day (25-30 kcals/kg) Protein: Using Current wt Protein g/kg: Based on current wt 66.4 kg with consideration of dialysis Protein Calculated 80-93 gm/day (1.2-1.4 gm/kg) Fluid: ml Per MD/DO due to renal failure Nutritional Problem 1. Problem Problem Possible chewing difficulty related to Etiology complete edentulism as evidenced by Signs/Symptoms: RN reports. Malnutrition Alert Protein-Calorie Malnutrition N/A Is there a minimum of two criteria No selected? Query Text:Check all the applicable criteria. A minimum of two criteria are recommended for diagnosis of either severe or non-severe malnutrition. Malnutrition Related to Morbid Obesity Malnutrition related to morbid obesity No Intervention/Recommendation Comments 1. Recommend mechanical soft chopped, 90-gram renal diet to better meet estimated nutritional needs. Expected Outcomes/Goals Expected Outcomes/Goals Have pt meet at least 75% of estimated nutritional needs with acceptable tolerance. Physician Parameters for PEM Serum Albumin (g/dl) 2.4 - 3.0 (Moderate)
--- NOTE | 2016-12-21 22:23 | Progress Notes ---
DATE: 12/21/2016 SUBJECTIVE: The patient is lying in bed. The patient actually is somewhat more responsive today. Not as agitated. The patient will respond to her name. Still confused. The patient has less abnormal movements. The patient's vasopressor is discontinued. The patient has tenderness, left leg blister. PHYSICAL EXAMINATION: VITAL SIGNS: Temperature 97.4, blood pressure 99/52, pulse around 90. NECK: Supple. No bruits. HEART: Sounds S1, S2. LUNGS: Clear. NEUROLOGICAL: The patient actually is somewhat more responsive. Will answer to her name. The patient still has weakness. Less tremor than before, and less myoclonus. INVESTIGATIONS: CT scan of the head is negative. ASSESSMENT: 1. Encephalopathy, gradual improvement. 2. Abnormal movements. 3. Possible herpes zoster, left leg. 4. Diabetes. 5. Atrial fibrillation. 6. Renal failure on hemodialysis. PLAN: Continue present treatment. JOB# [id number]
[2016-12-22] MEDS: Hydrocodone/APAP 5mg/325mg Tab PO PRN ×3 (03:15→22:05)
[2016-12-22] MEDS: Piperacillin/Tazobact 2.25 gm in 0.9% NS 50 ML IV SCH ×3 (05:27→20:34)
[2016-12-22] MEDS: D5-0.9%NS 1,000 ML IV SCH (05:29)
--- NOTE | 2016-12-22 08:22 | General Progress Note ---
Subjective - Review of Systems Service Date: 12/22/16 Subjective: Patient was seen and examined this AM. More awake and alert this morning. dialysis tomorrow. herpetic lesions present to the left leg. will continue current dressing changes. Objective - Results Result Diagrams: 12/21/16 05:00 12/21/16 05:00 Recent Labs: Laboratory Last Values WBC 8.5 Th/cmm (4.8-10.8) 12/21/16 05:00 RBC 3.38 Mil/cmm (3.80-5.20) L 12/21/16 05:00 Hgb 11.5 gm/dL (11.7-16.1) L 12/21/16 05:00 Hct 34.4 % (35.0-45.0) L 12/21/16 05:00 MCV 101.6 fl (81-100) H 12/21/16 05:00 MCH 33.9 pg (27.0-31.0) H 12/21/16 05:00 MCHC Differential 33.4 pg (28.0-36.0) 12/21/16 05:00 RDW 16.9 % (11.5-20.0) 12/21/16 05:00 Plt Count 80 Th/cmm (150-400) L D 12/21/16 05:00 MPV 9.2 fl 12/21/16 05:00 Neutrophils % 77.9 % (40.0-80.0) 12/21/16 05:00 Band Neutrophils % 2 % (0-10) 12/18/16 06:09 Lymphocytes % 13.4 % (20.0-50.0) L 12/21/16 05:00 Monocytes % 8.1 % (2.0-10.0) 12/21/16 05:00 Eosinophils % 0.6 % (0.0-5.0) 12/21/16 05:00 Basophils % 0.0 % (0.0-2.0) 12/21/16 05:00 Neutrophils (Manual) 82 % (40-80) H 12/18/16 06:09 Lymphocytes 9 % (20-50) L 12/18/16 06:09 Monocytes 6 % (2-10) 12/18/16 06:09 Eosinophils 1 % (0-5) 12/18/16 06:09 Basophils 0 % (0-3) 12/13/16 19:37 Nucleated RBCs 1.0 % (0-0) H 12/18/16 06:09 Platelet Estimate DECREASED PLATELETS (NORMAL) 12/18/16 06:09 Platelet Morphology NORMAL (NORMAL) 12/18/16 06:09 Polychromasia 1+ 12/18/16 06:09 Anisocytosis 1+ 12/17/16 06:42 RBC Morph Micro Appear ABNORMAL (NORMAL) 12/18/16 06:09 PT 16.0 SECONDS (9.5-11.5) H 12/21/16 05:00 INR 1.51 (0.5-1.4) H 12/21/16 05:00 PTT (Actin FS) 39.0 SECONDS (26.0-38.0) H 12/13/16 19:37 Specimen Source Arterial 12/18/16 22:48 Sample Site R-B 12/18/16 22:48 pH 7.37 (7.35-7.45) 12/18/16 22:48 pCO2 47.0 mmHg (35.0-45.0) H 12/18/16 22:48 pO2 85.0 mmHg (80.0-100.0) 12/18/16 22:48 HCO3 26.0 mEq/L (20.0-26.0) 12/18/16 22:48 Base Excess 1.4 mEq/L (-3.0-3.0) 12/18/16 22:48 O2 Saturation 96.0 % (92.0-100.0) 12/18/16 22:48 Mario Test P 12/18/16 22:48 Vent Rate NA 12/18/16 22:48 Inspired O2 32 12/18/16 22:48 Tidal Volume NA 12/18/16 22:48 PEEP NA 12/18/16 22:48 Pressure (ins/psv/peep) NA 12/18/16 22:48 Critical Value RPINEIRA 12/18/16 22:48 Sodium 135 mEq/L (136-145) L 12/21/16 05:00 Potassium 3.9 mEq/L (3.5-5.1) 12/21/16 05:00 Chloride 101 mEq/L (98-107) 12/21/16 05:00 Carbon Dioxide 21.3 mEq/L (21.0-31.0) 12/21/16 05:00 Anion Gap 16.6 (7.0-16.0) H 12/21/16 05:00 BUN 45 mg/dL (7-25) H 12/21/16 05:00 Creatinine 5.5 mg/dL (0.6-1.2) H* 12/21/16 05:00 Est GFR ( Amer) TNP 12/21/16 05:00 Est GFR (Non-Af Amer) TNP 12/21/16 05:00 BUN/Creatinine Ratio 8.2 12/21/16 05:00 Glucose 154 mg/dL (70-105) H 12/21/16 05:00 POC Glucose 89 MG/DL (70 - 105) 12/18/16 19:57 Hemoglobin A1c % 5.1 % (4.0-6.0) 12/15/16 07:44 Calcium 8.9 mg/dL (8.6-10.3) 12/21/16 05:00 Total Bilirubin 2.0 mg/dL (0.3-1.0) H 12/21/16 05:00 AST 26 U/L (13-39) 12/21/16 05:00 ALT 8 U/L (7-52) 12/21/16 05:00 Alkaline Phosphatase 59 U/L (34-104) 12/21/16 05:00 Ammonia 51 umol/L (16-53) 12/21/16 05:00 Total Protein 4.7 gm/dL (6.0-8.3) L 12/21/16 05:00 Albumin 2.0 gm/dL (3.7-5.3) L 12/21/16 05:00 Globulin 2.7 gm/dL 12/21/16 05:00 Albumin/Globulin Ratio 0.7 (1.0-1.8) L 12/21/16 05:00 Triglycerides 146 mg/dL (<150) 12/15/16 07:44 Cholesterol 67 mg/dL (<200) 12/15/16 07:44 LDL Cholesterol Direct 18 mg/dL (75-193) L 12/15/16 07:44 HDL Cholesterol 7 mg/dL (23-92) L 12/15/16 07:44 TSH 1.39 uIU/ml (0.34-5.60) 12/15/16 07:44 Random Vancomycin 28.0 ug/mL (5.0-40.0) 12/21/16 05:00 Hepatitis A IgM Ab Negative (Negative) 12/20/16 14:37 Hep Bs Antigen Negative (Negative) 12/20/16 14:37 Hep B Core IgM Ab Negative (Negative) 12/20/16 14:37 Hepatitis C Antibody 0.1 s/co ratio (0.0-0.9) 12/20/16 14:37 - Physical Exam Vitals and I&O: Vital Signs Temp 97.3 F 12/22/16 04:00 Pulse 94 12/22/16 04:00 Resp 18 12/22/16 04:00 BP 121/56 12/22/16 04:00 Pulse Ox 96 12/22/16 00:46 Intake & Output 12/21/16 12/22/16 12/22/16 18:59 06:59 18:59 Intake Total 3495.833 799.167 50 Output Total 2000 Balance 1495.833 799.167 50 Weight (lbs) 85.729 kg Intake: Intake, IV Amount 995.833 799.167 50 D5-0.9%Ns 1,000 ml @ 50 945.833 749.167 mls/hr IV .Q20H [facility] Rx#: [id number] Piperacillin Sodium/ 50 50 50 Tazobact 2.25 gm In Sodium Chloride 0.9% 50 ml @ 100 mls/hr IV Q8HR [facility] Rx#:[id number] Oral 500 Other 1999 Output: Hemodialysis 1999 Other: # Voids 0 # Bowel Movements 2 Stool Characteristics Liquid Soft Formed Active Medications: Current Medications Acetaminophen/Hydrocodone Bitart ([place] 5mg/325mg) 1 tab PO Q6H PRN PRN Reason: Pain Stop: 02/20/17 02:56 Last Admin: 12/22/16 03:15 Dose: 1 tab Amiodarone HCl (Cordarone) 200 mg PO BID [facility] Stop: 02/13/17 16:59 Last Admin: 12/21/16 17:09 Dose: 200 mg Calcitriol (Rocaltrol) 0.25 mcg PO DAILY [facility] Stop: 02/12/17 08:59 Last Admin: 12/21/16 09:10 Dose: 0.25 mcg Calcium Carbonate (Calcium Carb) 600 mg PO TID [facility] Stop: 02/12/17 08:59 Last Admin: 12/21/16 21:49 Dose: 600 mg Folic Acid (Folate) 1 mg PO DAILY [facility] Stop: 02/12/17 08:59 Last Admin: 12/21/16 09:10 Dose: 1 mg Piperacillin Sod/Tazobactam (Sod 2.25 gm/ Sodium Chloride) 50 mls @ 100 mls/hr IV Q8HR [facility] Stop: 02/13/17 04:59 Last Infusion: 12/22/16 07:06 Dose: Infused Norepinephrine Bitartrate 4 mg (/ Dextrose) 254 mls @ 19.05 mls/hr IV TITR PRN ; Protocol; 5 MCG/MIN PRN Reason: BP MAINTENANCE (PER PROTOCOL) Stop: 02/17/17 00:56 Last Admin: 12/19/16 20:36 Dose: 5.9 mcg/min, 22.47 mls/hr Dextrose/Sodium Chloride (D5-0.9%Ns) 1,000 mls @ 50 mls/hr IV .Q20H [facility] Stop: 02/18/17 14:29 Last Admin: 12/22/16 05:29 Dose: 50 mls/hr Lactobacillus Rhamnosus (Culturelle) 1 each PO DAILY [facility] Stop: 02/14/17 08:59 Last Admin: 12/21/16 09:10 Dose: 1 each Lactulose (Cephulac) 30 gm PO TID [facility] Stop: 02/18/17 14:44 Last Admin: 12/21/16 21:50 Dose: 30 gm Miscellaneous (Clinical Monitoring) 1 ea MC DAILY PRN PRN Reason: RENAL Stop: 02/12/17 11:19 Miscellaneous (Vancomycin Iv Per Pharmacy) 1 ea PRN [facility] Stop: 02/13/17 00:14 Miscellaneous (Probiotic Screen) 1 ea PRN PRN PRN Reason: PROTOCOL Stop: 02/13/17 09:47 Pantoprazole Sodium (Protonix) 40 mg PO DAILY [facility] Stop: 02/12/17 08:59 Last Admin: 12/21/16 09:10 Dose: 40 mg Propranolol HCl (Inderal) 20 mg PO TID [facility] Stop: 02/12/17 08:59 Last Admin: 12/21/16 21:48 Dose: 20 mg Rifaximin (Xifaxan) 200 mg PO Q12H [facility] Stop: 02/12/17 08:59 Last Admin: 12/21/16 21:48 Dose: 200 mg Sevelamer Carbonate (Renvela) 800 mg PO TID [facility] Stop: 02/12/17 08:59 Last Admin: 12/21/16 21:47 Dose: 800 mg Vitamin B Complex/Vit C/Folic Acid (Vitamin B Complex W/Vitamin C) 1 tab PO DAILY [facility] Stop: 02/12/17 08:59 Last Admin: 12/21/16 09:10 Dose: 1 tab General: No acute distress, no Alert (intermittent confusion but conversant) HEENT: Atraumatic, PERRLA, EOMI Neck: Supple Cardiovascular: Normal S1, Normal S2 Lungs: Clear to auscultation Abdomen: Bowel sounds Extremities: Other (lue avf +), no Clubbing, no Cyanosis, no Edema Skin: Rash (vesicular rash present to the left hip cellulitis) Assessment/Plan - Problem List Patient Problems: All Active Problems Anemia (Acute) D64.9 Cellulitis (Acute) L03.90 Chronic atrial fibrillation (Acute) I48.2 Diabetes mellitus (Acute) E11.9 ESRD (end stage renal disease) on dialysis (Acute) N18.6, Z99.2 Herpes zoster (Acute) B02.9 Left hip pain (Acute) M25.552 BRADLEY (nonalcoholic steatohepatitis) (Acute) K75.81 Peripheral vascular disease (Acute) I73.9 Thrombocytopenia (Acute) D69.6 - Assessment Assessment: ALOC ... resolved. Acute Kidney Insufficiency on CKD ... will order gentle hydration of NS @ 50cc/ hr. hepatic encephalopathy .... repeat ammonia level, continue lactulose IN left leg pain secondary to cellulitis ... continue IV antibiotics per ID herpes zoster ... on acyclovir ESRD on HD per nephro Diabetes Mellitus ... continue to monitor, SSI Chronic Atrial Fibrillation ... will order Cardiology consults. please see dictated report Thrombocytopenia secondary to liver cirrhosis ... will order PT/INR Anemia stable PVD BRADLEY - Plan Plan: eft leg pain cellulitis herpes zoster End Stage Renal Disease on HD Diabetes Mellitus Chronic Atrial Fibrillation Thrombocytopenia Anemia PVD BARDLEY Nutritional Asmnt/Malnutr-PDOC - Dietary Evaluation Malnutrition Findings (Please click <Entered> for more info): Nutritional Asmnt/Malnutrition Start: 12/15/16 15: 13 Text: Status: Complete Freq: Document 12/15/16 15:13 [facility] (Rec: 12/15/16 15:28 [facility] SHOSHANA-[id number]) Nutritional Asmnt/Malnutrition Patient General Information Nutritional Screening High Risk Screening Diagnosis Left leg pain, rash suspicious of herpes zoster Pertinent Medical Hx/Surgical Hx CVA, TIA, ESRD on dialysis, DM Subjective Information Pt is a 71-year-old female admitted with chief complaint of pain to left side of hip. Pt was asleep and unarousable to sound. Pt appears overwt with loose skin. RD unable to complete full malnutrition- focused physical assessment. CHRISTINA Pierre reports that pt feeds self independently. Pt has no teeth but currently tolerating food; RN request for soft foods in case. RD discussed with Dr. Domínguez, texture change approved. Current Diet Order/ Nutrition Support Renal Patient / S.O Indicated Pertinent Medications Rocaltrol, Calcium Carb, Cleocin, Folate, Morphine, Protonix, Renevla, Vitamin B Complex Pertinent Labs (12/14) BUN 45H and Creatinine 5 .8H (increasing), Total Bilrubin 2H, Alkaline Phosphatase 132H, Albumin 2.6L , Ammonia 89H Nutritional Hx/Data Height 1.55 m Height (Calculated Centimeters) 154.9 Current Weight (lbs) 66.224 kg Weight (Calculated Kilograms) 66.2 Weight (Calculated Grams) 43590.5 [place] Body Weight 105 % [place] Body Weight 139 Weight Status Overweight GI Symptoms GI Symptoms None Last BM Difficult in: Chewing Food Allergies No Cultural/Ethnic/Faith Belief No preferences noted. Skin Integrity/Comment: Jf 17. No skin breakdown. Rash and bruises noted. Current %PO Good (75-100%) Estimated Nutritional Goals BEE in Kcals: Using Current wt Calories/Kcals/Kg Based on current wt 66.4 kg with consideration of dialysis Kcals Calculated 1370-7163 kcals/day (25-30 kcals/kg) Protein: Using Current wt Protein g/kg: Based on current wt 66.4 kg with consideration of dialysis Protein Calculated 80-93 gm/day (1.2-1.4 gm/kg) Fluid: ml Per MD/DO due to renal failure Nutritional Problem 1. Problem Problem Possible chewing difficulty related to Etiology complete edentulism as evidenced by Signs/Symptoms: RN reports. Malnutrition Alert Protein-Calorie Malnutrition N/A Is there a minimum of two criteria No selected? Query Text:Check all the applicable criteria. A minimum of two criteria are recommended for diagnosis of either severe or non-severe malnutrition. Malnutrition Related to Morbid Obesity Malnutrition related to morbid obesity No Intervention/Recommendation Comments 1. Recommend mechanical soft chopped, 90-gram renal diet to better meet estimated nutritional needs. Expected Outcomes/Goals Expected Outcomes/Goals Have pt meet at least 75% of estimated nutritional needs with acceptable tolerance. Physician Parameters for PEM Serum Albumin (g/dl) 2.4 - 3.0 (Moderate)
[2016-12-22] MEDS: Lactobacillus Rhamnosus 10 Billion CFU Capsule PO SCH (09:34)
[2016-12-22] MEDS: Vitamin B Complex w/Vitamin C Tab PO SCH (09:34)
[2016-12-22] MEDS: Pantoprazole 40 mg EC Tab PO SCH (09:35)
[2016-12-22] MEDS: Lactulose 10 Gm/15 mL 30mL UDC PO SCH ×3 (09:35→20:33)
[2016-12-22 09:52] LABS: % EOSINOPHILS 0.5 % (0.0-5.0); % LYMPHOCYTES 8.7 % (20.0-50.0); % MONOCYTES 6.5 % (2.0-10.0); % NEUTROPHILS 84.3 % (40.0-80.0); HEMATOCRIT 35.5 % (41.0-60); HEMOGLOBIN 11.8 gm/dL (12-16); MEAN CELL VOLUME 101.6 fl (81-100); MEAN CORPUSCULAR HEMOGLOBIN 33.8 pg (27.0-31.0); MEAN CORPUSCULAR HGB CONC 33.3 pg (28.0-36.0); MEAN PLATELET VOLUME 9.3 fl; NEUTROPHILE ABSOLUTE 9.2 Th/cmm (1.8-8.0); PLATELET COUNT 89 Th/cmm (150-400); RED BLOOD COUNT 3.49 Mil/cmm (3.80-5.20); RED CELL DISTRIBUTION WIDTH 17.5 % (11.5-20.0)
[2016-12-22 09:56] LABS: ALB/GLOB RATIO 0.7 (1.0-1.8); ALKALINE PHOSPHATASE 90 U/L (34-104); ANION GAP 12.5 (7.0-16.0); BILIRUBIN,TOTAL 2.1 mg/dL (0.3-1.0); BUN - UREA NITROGEN 36 mg/dL (7-25); BUN/CREATININE RATIO 7.7; CALCIUM SERUM 8.7 mg/dL (8.6-10.3); CARBON DIOXIDE 24.8 mEq/L (21.0-31.0); CHLORIDE 100 mEq/L (98-107); GLUCOSE 171 mg/dL (70-105); POTASSIUM SERUM 3.3 mEq/L (3.5-5.1); SGOT 34 U/L (13-39); SGPT/ALT 12 U/L (7-52); SODIUM SERUM 134 mEq/L (136-145)
[2016-12-22 09:58] LABS: WHITE BLOOD COUNT 10.9 Th/cmm (4.8-10.8)
[2016-12-22] MEDS: Sevelamer Carnonate 800 mg Tab PO SCH ×3 (10:11→20:33)
--- NOTE | 2016-12-22 11:31 | Infectious Disease Prog Note ---
Infectious Disease Subjective - Review of Systems Service Date: 12/22/16 Subjective: Doing better. Infectious Disease Objective - Results Result Diagrams: 12/22/16 09:00 12/22/16 09:00 Recent Labs: Laboratory Last Values WBC 10.9 Th/cmm (4.8-10.8) H D 12/22/16 09:00 RBC 3.49 Mil/cmm (3.80-5.20) L 12/22/16 09:00 Hgb 11.8 gm/dL (12-16) L 12/22/16 09:00 Hct 35.5 % (41.0-60) L 12/22/16 09:00 MCV 101.6 fl (81-100) H 12/22/16 09:00 MCH 33.8 pg (27.0-31.0) H 12/22/16 09:00 MCHC Differential 33.3 pg (28.0-36.0) 12/22/16 09:00 RDW 17.5 % (11.5-20.0) 12/22/16 09:00 Plt Count 89 Th/cmm (150-400) L 12/22/16 09:00 MPV 9.3 fl 12/22/16 09:00 Neutrophils % 84.3 % (40.0-80.0) H 12/22/16 09:00 Band Neutrophils % 2 % (0-10) 12/18/16 06:09 Lymphocytes % 8.7 % (20.0-50.0) L 12/22/16 09:00 Monocytes % 6.5 % (2.0-10.0) 12/22/16 09:00 Eosinophils % 0.5 % (0.0-5.0) 12/22/16 09:00 Basophils % 0.0 % (0.0-2.0) 12/22/16 09:00 Neutrophils (Manual) 82 % (40-80) H 12/18/16 06:09 Lymphocytes 9 % (20-50) L 12/18/16 06:09 Monocytes 6 % (2-10) 12/18/16 06:09 Eosinophils 1 % (0-5) 12/18/16 06:09 Basophils 0 % (0-3) 12/13/16 19:37 Nucleated RBCs 1.0 % (0-0) H 12/18/16 06:09 Platelet Estimate DECREASED PLATELETS (NORMAL) 12/18/16 06:09 Platelet Morphology NORMAL (NORMAL) 12/18/16 06:09 Polychromasia 1+ 12/18/16 06:09 Anisocytosis 1+ 12/17/16 06:42 RBC Morph Micro Appear ABNORMAL (NORMAL) 12/18/16 06:09 PT 16.0 SECONDS (9.5-11.5) H 12/21/16 05:00 INR 1.51 (0.5-1.4) H 12/21/16 05:00 PTT (Actin FS) 39.0 SECONDS (26.0-38.0) H 12/13/16 19:37 Specimen Source Arterial 12/18/16 22:48 Sample Site R-B 12/18/16 22:48 pH 7.37 (7.35-7.45) 12/18/16 22:48 pCO2 47.0 mmHg (35.0-45.0) H 12/18/16 22:48 pO2 85.0 mmHg (80.0-100.0) 12/18/16 22:48 HCO3 26.0 mEq/L (20.0-26.0) 12/18/16 22:48 Base Excess 1.4 mEq/L (-3.0-3.0) 12/18/16 22:48 O2 Saturation 96.0 % (92.0-100.0) 12/18/16 22:48 Mario Test P 12/18/16 22:48 Vent Rate NA 12/18/16 22:48 Inspired O2 32 12/18/16 22:48 Tidal Volume NA 12/18/16 22:48 PEEP NA 12/18/16 22:48 Pressure (ins/psv/peep) NA 12/18/16 22:48 Critical Value RPINEIRA 12/18/16 22:48 Sodium 134 mEq/L (136-145) L 12/22/16 09:00 Potassium 3.3 mEq/L (3.5-5.1) L 12/22/16 09:00 Chloride 100 mEq/L (98-107) 12/22/16 09:00 Carbon Dioxide 24.8 mEq/L (21.0-31.0) 12/22/16 09:00 Anion Gap 12.5 (7.0-16.0) 12/22/16 09:00 BUN 36 mg/dL (7-25) H 12/22/16 09:00 Creatinine 4.7 mg/dL (0.6-1.2) H* 12/22/16 09:00 Est GFR ( Amer) TNP 12/22/16 09:00 Est GFR (Non-Af Amer) TNP 12/22/16 09:00 BUN/Creatinine Ratio 7.7 12/22/16 09:00 Glucose 171 mg/dL (70-105) H 12/22/16 09:00 POC Glucose 89 MG/DL (70 - 105) 12/18/16 19:57 Hemoglobin A1c % 5.1 % (4.0-6.0) 12/15/16 07:44 Calcium 8.7 mg/dL (8.6-10.3) 12/22/16 09:00 Total Bilirubin 2.1 mg/dL (0.3-1.0) H 12/22/16 09:00 AST 34 U/L (13-39) 12/22/16 09:00 ALT 12 U/L (7-52) 12/22/16 09:00 Alkaline Phosphatase 90 U/L (34-104) 12/22/16 09:00 Ammonia 51 umol/L (16-53) 12/21/16 05:00 Total Protein 4.8 gm/dL (6.0-8.3) L 12/22/16 09:00 Albumin 2.0 gm/dL (3.7-5.3) L 12/22/16 09:00 Globulin 2.8 gm/dL 12/22/16 09:00 Albumin/Globulin Ratio 0.7 (1.0-1.8) L 12/22/16 09:00 Triglycerides 146 mg/dL (<150) 12/15/16 07:44 Cholesterol 67 mg/dL (<200) 12/15/16 07:44 LDL Cholesterol Direct 18 mg/dL (75-193) L 12/15/16 07:44 HDL Cholesterol 7 mg/dL (23-92) L 12/15/16 07:44 TSH 1.39 uIU/ml (0.34-5.60) 12/15/16 07:44 Random Vancomycin 22.3 ug/mL (5.0-40.0) 12/22/16 09:00 Hepatitis A IgM Ab Negative (Negative) 12/20/16 14:37 Hep Bs Antigen Negative (Negative) 12/20/16 14:37 Hep B Core IgM Ab Negative (Negative) 12/20/16 14:37 Hepatitis C Antibody 0.1 s/co ratio (0.0-0.9) 12/20/16 14:37 - Physical Exam Vitals and I&O: Vital Signs Temp 98.6 F 12/22/16 08:00 Pulse 87 12/22/16 09:35 Resp 18 12/22/16 10:19 BP 105/50 12/22/16 09:34 Pulse Ox 99 12/22/16 08:00 Intake & Output 12/21/16 12/22/16 12/22/16 18:59 06:59 18:59 Intake Total 3495.833 799.167 50 Output Total 1999 Balance 1495.833 799.167 50 Weight (lbs) 85.729 kg Intake: Intake, IV Amount 995.833 799.167 50 D5-0.9%Ns 1,000 ml @ 50 945.833 749.167 mls/hr IV .Q20H [facility] Rx#: [id number] Piperacillin Sodium/ 50 50 50 Tazobact 2.25 gm In Sodium Chloride 0.9% 50 ml @ 100 mls/hr IV Q8HR [facility] Rx#:[id number] Oral 500 Other 1999 Output: Hemodialysis 1999 Other: # Voids 0 # Bowel Movements 2 Stool Characteristics Liquid Soft Soft Formed Formed Active Medications: Current Medications Acetaminophen/Hydrocodone Bitart ([place] 5mg/325mg) 1 tab PO Q6H PRN PRN Reason: Pain Stop: 02/20/17 02:56 Last Admin: 12/22/16 03:15 Dose: 1 tab Amiodarone HCl (Cordarone) 200 mg PO BID [facility] Stop: 02/13/17 16:59 Last Admin: 12/22/16 09:35 Dose: 200 mg Calcitriol (Rocaltrol) 0.25 mcg PO DAILY [facility] Stop: 02/12/17 08:59 Last Admin: 12/22/16 09:34 Dose: 0.25 mcg Calcium Carbonate (Calcium Carb) 600 mg PO TID [facility] Stop: 02/12/17 08:59 Last Admin: 12/22/16 09:34 Dose: 600 mg Folic Acid (Folate) 1 mg PO DAILY [facility] Stop: 02/12/17 08:59 Last Admin: 12/22/16 09:35 Dose: 1 mg Piperacillin Sod/Tazobactam (Sod 2.25 gm/ Sodium Chloride) 50 mls @ 100 mls/hr IV Q8HR [facility] Stop: 02/13/17 04:59 Last Infusion: 12/22/16 07:06 Dose: Infused Norepinephrine Bitartrate 4 mg (/ Dextrose) 254 mls @ 19.05 mls/hr IV TITR PRN ; Protocol; 5 MCG/MIN PRN Reason: BP MAINTENANCE (PER PROTOCOL) Stop: 02/17/17 00:56 Last Admin: 12/19/16 20:36 Dose: 5.9 mcg/min, 22.47 mls/hr Dextrose/Sodium Chloride (D5-0.9%Ns) 1,000 mls @ 50 mls/hr IV .Q20H [facility] Stop: 02/18/17 14:29 Last Admin: 12/22/16 05:29 Dose: 50 mls/hr Lactobacillus Rhamnosus (Culturelle) 1 each PO DAILY [facility] Stop: 02/14/17 08:59 Last Admin: 12/22/16 09:34 Dose: 1 each Lactulose (Cephulac) 30 gm PO TID [facility] Stop: 02/18/17 14:44 Last Admin: 12/22/16 09:35 Dose: 30 gm Miscellaneous (Clinical Monitoring) 1 ea MC DAILY PRN PRN Reason: RENAL Stop: 02/12/17 11:19 Miscellaneous (Vancomycin Iv Per Pharmacy) 1 ea PRN [facility] Stop: 02/13/17 00:14 Miscellaneous (Probiotic Screen) 1 ea PRN PRN PRN Reason: PROTOCOL Stop: 02/13/17 09:47 Pantoprazole Sodium (Protonix) 40 mg PO DAILY [facility] Stop: 02/12/17 08:59 Last Admin: 12/22/16 09:35 Dose: 40 mg Propranolol HCl (Inderal) 20 mg PO TID [facility] Stop: 02/12/17 08:59 Last Admin: 12/22/16 09:34 Dose: 20 mg Rifaximin (Xifaxan) 200 mg PO Q12H [facility] Stop: 02/12/17 08:59 Last Admin: 12/22/16 09:34 Dose: 200 mg Sevelamer Carbonate (Renvela) 800 mg PO TID [facility] Stop: 02/12/17 08:59 Last Admin: 12/22/16 10:11 Dose: 800 mg Vitamin B Complex/Vit C/Folic Acid (Vitamin B Complex W/Vitamin C) 1 tab PO DAILY [facility] Stop: 02/12/17 08:59 Last Admin: 12/22/16 09:34 Dose: 1 tab General: no acute distress, well developed, well nourished HEENT: atraumatic, normocephalic, PERRLA Neck: supple, no thyromegaly, no rigid Cardiovascular: S1S2, regular Lungs: clear to auscultation bilaterally, clear to percussion Abdomen: soft, bowel sounds, obese, no tender, no guarding Extremities: other (left tigh and left leg has wounds, no change.), no cyanosis , no clubbing, no edema Neurological: awake, alert, oriented Infectious Disease Assmt/Plan - Problem List Patient Problems: All Active Problems Anemia (Acute) D64.9 Cellulitis (Acute) L03.90 Chronic atrial fibrillation (Acute) I48.2 Diabetes mellitus (Acute) E11.9 ESRD (end stage renal disease) on dialysis (Acute) N18.6, Z99.2 Herpes zoster (Acute) B02.9 Left hip pain (Acute) M25.552 BRADLEY (nonalcoholic steatohepatitis) (Acute) K75.81 Peripheral vascular disease (Acute) I73.9 Thrombocytopenia (Acute) D69.6 - Assessment Assessment: 1. Left leg cellulitis. suspect strep versus staph infection, suspect underlying necrosis. 2. ? blister in the left thigh does not seem to be herpes. 3. DM2. 4. CKD 5 on HD. 5. Hypotension. 6. Altered mental status ? Hepatic encephalopathy or acyclovir induced. Improved. - Plan Plan: Continue vanco iv and zosyn. wound care. Nutritional Asmnt/Malnutr-PDOC - Dietary Evaluation Malnutrition Findings (Please click <Entered> for more info): Nutritional Asmnt/Malnutrition Start: 12/15/16 15: 13 Text: Status: Complete Freq: Document 12/15/16 15:13 DAAZ (Rec: 12/15/16 15:28 [facility] SH[facility]-[id number]) Nutritional Asmnt/Malnutrition Patient General Information Nutritional Screening High Risk Screening Diagnosis Left leg pain, rash suspicious of herpes zoster Pertinent Medical Hx/Surgical Hx CVA, TIA, ESRD on dialysis, DM Subjective Information Pt is a 71-year-old female admitted with chief complaint of pain to left side of hip. Pt was asleep and unarousable to sound. Pt appears overwt with loose skin. RD unable to complete full malnutrition- focused physical assessment. CHRISTINA Pierre reports that pt feeds self independently. Pt has no teeth but currently tolerating food; RN request for soft foods in case. RD discussed with Dr. Domínguez, texture change approved. Current Diet Order/ Nutrition Support Renal Patient / S.O Indicated Pertinent Medications Rocaltrol, Calcium Carb, Cleocin, Folate, Morphine, Protonix, Renevla, Vitamin B Complex Pertinent Labs (12/14) BUN 45H and Creatinine 5 .8H (increasing), Total Bilrubin 2H, Alkaline Phosphatase 132H, Albumin 2.6L , Ammonia 89H Nutritional Hx/Data Height 1.55 m Height (Calculated Centimeters) 154.9 Current Weight (lbs) 66.224 kg Weight (Calculated Kilograms) 66.2 Weight (Calculated Grams) 89722.5 [place] Body Weight 105 % [place] Body Weight 139 Weight Status Overweight GI Symptoms GI Symptoms None Last BM Difficult in: Chewing Food Allergies No Cultural/Ethnic/Latter-Day Belief No preferences noted. Skin Integrity/Comment: Jf 17. No skin breakdown. Rash and bruises noted. Current %PO Good (75-100%) Estimated Nutritional Goals BEE in Kcals: Using Current wt Calories/Kcals/Kg Based on current wt 66.4 kg with consideration of dialysis Kcals Calculated 8061-9517 kcals/day (25-30 kcals/kg) Protein: Using Current wt Protein g/kg: Based on current wt 66.4 kg with consideration of dialysis Protein Calculated 80-93 gm/day (1.2-1.4 gm/kg) Fluid: ml Per MD/DO due to renal failure Nutritional Problem 1. Problem Problem Possible chewing difficulty related to Etiology complete edentulism as evidenced by Signs/Symptoms: RN reports. Malnutrition Alert Protein-Calorie Malnutrition N/A Is there a minimum of two criteria No selected? Query Text:Check all the applicable criteria. A minimum of two criteria are recommended for diagnosis of either severe or non-severe malnutrition. Malnutrition Related to Morbid Obesity Malnutrition related to morbid obesity No Intervention/Recommendation Comments 1. Recommend mechanical soft chopped, 90-gram renal diet to better meet estimated nutritional needs. Expected Outcomes/Goals Expected Outcomes/Goals Have pt meet at least 75% of estimated nutritional needs with acceptable tolerance. Physician Parameters for PEM Serum Albumin (g/dl) 2.4 - 3.0 (Moderate)
--- NOTE | 2016-12-22 12:26 | Operative Report ---
DATE OF SURGERY: 12/18/2016 PREOPERATIVE DIAGNOSIS: Blisters lateral aspect of the left thigh and leg, question of herpes. POSTOPERATIVE DIAGNOSIS: Blisters lateral aspect of the left thigh and leg, question of herpes. OPERATION DONE: Debridement. PROCEDURE IN DETAIL: The lateral aspect of the leg was prepped with Betadine. Because the blisters were rather superficial, these were removed without scissors, using gloved hands only. Following this, local wound care will be instituted. JOB# [id number] [facility]ITAL[facility]
--- NOTE | 2016-12-22 14:29 | General Progress Note ---
Subjective - Review of Systems Service Date: 12/22/16 Subjective: Comfortable this PM, family member at bedside, questions answered Objective - Results Result Diagrams: 12/22/16 09:00 12/22/16 09:00 Recent Labs: Laboratory Last Values WBC 10.9 Th/cmm (4.8-10.8) H D 12/22/16 09:00 RBC 3.49 Mil/cmm (3.80-5.20) L 12/22/16 09:00 Hgb 11.8 gm/dL (12-16) L 12/22/16 09:00 Hct 35.5 % (41.0-60) L 12/22/16 09:00 MCV 101.6 fl (81-100) H 12/22/16 09:00 MCH 33.8 pg (27.0-31.0) H 12/22/16 09:00 MCHC Differential 33.3 pg (28.0-36.0) 12/22/16 09:00 RDW 17.5 % (11.5-20.0) 12/22/16 09:00 Plt Count 89 Th/cmm (150-400) L 12/22/16 09:00 MPV 9.3 fl 12/22/16 09:00 Neutrophils % 84.3 % (40.0-80.0) H 12/22/16 09:00 Band Neutrophils % 2 % (0-10) 12/18/16 06:09 Lymphocytes % 8.7 % (20.0-50.0) L 12/22/16 09:00 Monocytes % 6.5 % (2.0-10.0) 12/22/16 09:00 Eosinophils % 0.5 % (0.0-5.0) 12/22/16 09:00 Basophils % 0.0 % (0.0-2.0) 12/22/16 09:00 Neutrophils (Manual) 82 % (40-80) H 12/18/16 06:09 Lymphocytes 9 % (20-50) L 12/18/16 06:09 Monocytes 6 % (2-10) 12/18/16 06:09 Eosinophils 1 % (0-5) 12/18/16 06:09 Basophils 0 % (0-3) 12/13/16 19:37 Nucleated RBCs 1.0 % (0-0) H 12/18/16 06:09 Platelet Estimate DECREASED PLATELETS (NORMAL) 12/18/16 06:09 Platelet Morphology NORMAL (NORMAL) 12/18/16 06:09 Polychromasia 1+ 12/18/16 06:09 Anisocytosis 1+ 12/17/16 06:42 RBC Morph Micro Appear ABNORMAL (NORMAL) 12/18/16 06:09 PT 16.0 SECONDS (9.5-11.5) H 12/21/16 05:00 INR 1.51 (0.5-1.4) H 12/21/16 05:00 PTT (Actin FS) 39.0 SECONDS (26.0-38.0) H 12/13/16 19:37 Specimen Source Arterial 12/18/16 22:48 Sample Site R-B 12/18/16 22:48 pH 7.37 (7.35-7.45) 12/18/16 22:48 pCO2 47.0 mmHg (35.0-45.0) H 12/18/16 22:48 pO2 85.0 mmHg (80.0-100.0) 12/18/16 22:48 HCO3 26.0 mEq/L (20.0-26.0) 12/18/16 22:48 Base Excess 1.4 mEq/L (-3.0-3.0) 12/18/16 22:48 O2 Saturation 96.0 % (92.0-100.0) 12/18/16 22:48 Mario Test P 12/18/16 22:48 Vent Rate NA 12/18/16 22:48 Inspired O2 32 12/18/16 22:48 Tidal Volume NA 12/18/16 22:48 PEEP NA 12/18/16 22:48 Pressure (ins/psv/peep) NA 12/18/16 22:48 Critical Value RPINEIRA 12/18/16 22:48 Sodium 134 mEq/L (136-145) L 12/22/16 09:00 Potassium 3.3 mEq/L (3.5-5.1) L 12/22/16 09:00 Chloride 100 mEq/L (98-107) 12/22/16 09:00 Carbon Dioxide 24.8 mEq/L (21.0-31.0) 12/22/16 09:00 Anion Gap 12.5 (7.0-16.0) 12/22/16 09:00 BUN 36 mg/dL (7-25) H 12/22/16 09:00 Creatinine 4.7 mg/dL (0.6-1.2) H* 12/22/16 09:00 Est GFR ( Amer) TNP 12/22/16 09:00 Est GFR (Non-Af Amer) TNP 12/22/16 09:00 BUN/Creatinine Ratio 7.7 12/22/16 09:00 Glucose 171 mg/dL (70-105) H 12/22/16 09:00 POC Glucose 89 MG/DL (70 - 105) 12/18/16 19:57 Hemoglobin A1c % 5.1 % (4.0-6.0) 12/15/16 07:44 Calcium 8.7 mg/dL (8.6-10.3) 12/22/16 09:00 Total Bilirubin 2.1 mg/dL (0.3-1.0) H 12/22/16 09:00 AST 34 U/L (13-39) 12/22/16 09:00 ALT 12 U/L (7-52) 12/22/16 09:00 Alkaline Phosphatase 90 U/L (34-104) 12/22/16 09:00 Ammonia 51 umol/L (16-53) 12/21/16 05:00 Total Protein 4.8 gm/dL (6.0-8.3) L 12/22/16 09:00 Albumin 2.0 gm/dL (3.7-5.3) L 12/22/16 09:00 Globulin 2.8 gm/dL 12/22/16 09:00 Albumin/Globulin Ratio 0.7 (1.0-1.8) L 12/22/16 09:00 Triglycerides 146 mg/dL (<150) 12/15/16 07:44 Cholesterol 67 mg/dL (<200) 12/15/16 07:44 LDL Cholesterol Direct 18 mg/dL (75-193) L 12/15/16 07:44 HDL Cholesterol 7 mg/dL (23-92) L 12/15/16 07:44 TSH 1.39 uIU/ml (0.34-5.60) 12/15/16 07:44 Random Vancomycin 22.3 ug/mL (5.0-40.0) 12/22/16 09:00 Hepatitis A IgM Ab Negative (Negative) 12/20/16 14:37 Hep Bs Antigen Negative (Negative) 12/20/16 14:37 Hep B Core IgM Ab Negative (Negative) 12/20/16 14:37 Hepatitis C Antibody 0.1 s/co ratio (0.0-0.9) 12/20/16 14:37 - Physical Exam Vitals and I&O: Vital Signs Temp 98.6 F 12/22/16 08:00 Pulse 84 12/22/16 14:22 Resp 18 12/22/16 10:19 BP 134/58 12/22/16 14:22 Pulse Ox 99 12/22/16 08:00 Intake & Output 12/21/16 12/22/16 12/22/16 18:59 06:59 18:59 Intake Total 3495.833 799.167 50 Output Total 1999 Balance 1495.833 799.167 50 Weight (lbs) 85.729 kg Intake: Intake, IV Amount 995.833 799.167 50 D5-0.9%Ns 1,000 ml @ 50 945.833 749.167 mls/hr IV .Q20H [facility] Rx#: [id number] Piperacillin Sodium/ 50 50 50 Tazobact 2.25 gm In Sodium Chloride 0.9% 50 ml @ 100 mls/hr IV Q8HR [facility] Rx#:[id number] Oral 500 Other 1999 Output: Hemodialysis 1999 Other: # Voids 0 # Bowel Movements 2 Stool Characteristics Liquid Soft Soft Formed Formed Active Medications: Current Medications Acetaminophen/Hydrocodone Bitart ([place] 5mg/325mg) 1 tab PO Q6H PRN PRN Reason: Pain Stop: 02/20/17 02:56 Last Admin: 12/22/16 03:15 Dose: 1 tab Amiodarone HCl (Cordarone) 200 mg PO BID [facility] Stop: 02/13/17 16:59 Last Admin: 12/22/16 09:35 Dose: 200 mg Calcitriol (Rocaltrol) 0.25 mcg PO DAILY [facility] Stop: 02/12/17 08:59 Last Admin: 12/22/16 09:34 Dose: 0.25 mcg Calcium Carbonate (Calcium Carb) 600 mg PO TID [facility] Stop: 02/12/17 08:59 Last Admin: 12/22/16 14:23 Dose: 600 mg Folic Acid (Folate) 1 mg PO DAILY [facility] Stop: 02/12/17 08:59 Last Admin: 12/22/16 09:35 Dose: 1 mg Piperacillin Sod/Tazobactam (Sod 2.25 gm/ Sodium Chloride) 50 mls @ 100 mls/hr IV Q8HR [facility] Stop: 02/13/17 04:59 Last Admin: 12/22/16 14:24 Dose: 100 mls/hr Norepinephrine Bitartrate 4 mg (/ Dextrose) 254 mls @ 19.05 mls/hr IV TITR PRN ; Protocol; 5 MCG/MIN PRN Reason: BP MAINTENANCE (PER PROTOCOL) Stop: 02/17/17 00:56 Last Admin: 12/19/16 20:36 Dose: 5.9 mcg/min, 22.47 mls/hr Dextrose/Sodium Chloride (D5-0.9%Ns) 1,000 mls @ 50 mls/hr IV .Q20H [facility] Stop: 02/18/17 14:29 Last Admin: 12/22/16 05:29 Dose: 50 mls/hr Lactobacillus Rhamnosus (Culturelle) 1 each PO DAILY [facility] Stop: 02/14/17 08:59 Last Admin: 12/22/16 09:34 Dose: 1 each Lactulose (Cephulac) 30 gm PO TID [facility] Stop: 02/18/17 14:44 Last Admin: 12/22/16 14:24 Dose: 30 gm Miscellaneous (Clinical Monitoring) 1 ea MC DAILY PRN PRN Reason: RENAL Stop: 02/12/17 11:19 Miscellaneous (Probiotic Screen) 1 ea PRN PRN PRN Reason: PROTOCOL Stop: 02/13/17 09:47 Pantoprazole Sodium (Protonix) 40 mg PO DAILY [facility] Stop: 02/12/17 08:59 Last Admin: 12/22/16 09:35 Dose: 40 mg Propranolol HCl (Inderal) 20 mg PO TID [facility] Stop: 02/12/17 08:59 Last Admin: 12/22/16 14:22 Dose: 20 mg Rifaximin (Xifaxan) 200 mg PO Q12H [facility] Stop: 02/12/17 08:59 Last Admin: 12/22/16 09:34 Dose: 200 mg Sevelamer Carbonate (Renvela) 800 mg PO TID [facility] Stop: 02/12/17 08:59 Last Admin: 12/22/16 14:22 Dose: 800 mg Vitamin B Complex/Vit C/Folic Acid (Vitamin B Complex W/Vitamin C) 1 tab PO DAILY [facility] Stop: 02/12/17 08:59 Last Admin: 12/22/16 09:34 Dose: 1 tab General: No acute distress, no Alert (intermittent confusion but conversant) HEENT: Atraumatic, PERRLA, EOMI Neck: Supple Cardiovascular: Normal S1, Normal S2 Lungs: Clear to auscultation Abdomen: Bowel sounds Extremities: Other (lue avf +), no Clubbing, no Cyanosis, no Edema Skin: Rash (vesicular rash present to the left hip cellulitis) Assessment/Plan - Problem List Patient Problems: All Active Problems Anemia (Acute) D64.9 Cellulitis (Acute) L03.90 Chronic atrial fibrillation (Acute) I48.2 Diabetes mellitus (Acute) E11.9 ESRD (end stage renal disease) on dialysis (Acute) N18.6, Z99.2 Herpes zoster (Acute) B02.9 Left hip pain (Acute) M25.552 BRADLEY (nonalcoholic steatohepatitis) (Acute) K75.81 Peripheral vascular disease (Acute) I73.9 Thrombocytopenia (Acute) D69.6 - Assessment Assessment: HD on MWF schedule. HGB in range no need for JUDITH or transfusion Abx per infectious disesase Pending long-term acute care transfer Nutritional Asmnt/Malnutr-PDOC - Dietary Evaluation Malnutrition Findings (Please click <Entered> for more info): Nutritional Asmnt/Malnutrition Start: 12/15/16 15: 13 Text: Status: Complete Freq: Document 12/15/16 15:13 [facility] (Rec: 12/15/16 15:28 [facility] SHOSHANA-[id number]) Nutritional Asmnt/Malnutrition Patient General Information Nutritional Screening High Risk Screening Diagnosis Left leg pain, rash suspicious of herpes zoster Pertinent Medical Hx/Surgical Hx CVA, TIA, ESRD on dialysis, DM Subjective Information Pt is a 71-year-old female admitted with chief complaint of pain to left side of hip. Pt was asleep and unarousable to sound. Pt appears overwt with loose skin. RD unable to complete full malnutrition- focused physical assessment. CHRISTINA Pierre reports that pt feeds self independently. Pt has no teeth but currently tolerating food; RN request for soft foods in case. RD discussed with Dr. Domínguez, texture change approved. Current Diet Order/ Nutrition Support Renal Patient / S.O Indicated Pertinent Medications Rocaltrol, Calcium Carb, Cleocin, Folate, Morphine, Protonix, Renevla, Vitamin B Complex Pertinent Labs (12/14) BUN 45H and Creatinine 5 .8H (increasing), Total Bilrubin 2H, Alkaline Phosphatase 132H, Albumin 2.6L , Ammonia 89H Nutritional Hx/Data Height 1.55 m Height (Calculated Centimeters) 154.9 Current Weight (lbs) 66.224 kg Weight (Calculated Kilograms) 66.2 Weight (Calculated Grams) 80487.5 [place] Body Weight 105 % [place] Body Weight 139 Weight Status Overweight GI Symptoms GI Symptoms None Last BM Difficult in: Chewing Food Allergies No Cultural/Ethnic/Latter Day Belief No preferences noted. Skin Integrity/Comment: Jf 17. No skin breakdown. Rash and bruises noted. Current %PO Good (75-100%) Estimated Nutritional Goals BEE in Kcals: Using Current wt Calories/Kcals/Kg Based on current wt 66.4 kg with consideration of dialysis Kcals Calculated 9595-8310 kcals/day (25-30 kcals/kg) Protein: Using Current wt Protein g/kg: Based on current wt 66.4 kg with consideration of dialysis Protein Calculated 80-93 gm/day (1.2-1.4 gm/kg) Fluid: ml Per MD/DO due to renal failure Nutritional Problem 1. Problem Problem Possible chewing difficulty related to Etiology complete edentulism as evidenced by Signs/Symptoms: RN reports. Malnutrition Alert Protein-Calorie Malnutrition N/A Is there a minimum of two criteria No selected? Query Text:Check all the applicable criteria. A minimum of two criteria are recommended for diagnosis of either severe or non-severe malnutrition. Malnutrition Related to Morbid Obesity Malnutrition related to morbid obesity No Intervention/Recommendation Comments 1. Recommend mechanical soft chopped, 90-gram renal diet to better meet estimated nutritional needs. Expected Outcomes/Goals Expected Outcomes/Goals Have pt meet at least 75% of estimated nutritional needs with acceptable tolerance. Physician Parameters for PEM Serum Albumin (g/dl) 2.4 - 3.0 (Moderate)
[2016-12-22] MEDS: Venelex 60gm Tube TP SCH (15:44)
[2016-12-23] MEDS: D5-0.9%NS 1,000 ML IV SCH (02:32)
[2016-12-23] MEDS: Piperacillin/Tazobact 2.25 gm in 0.9% NS 50 ML IV SCH ×3 (04:37→20:10)
[2016-12-23 07:52] LABS: CREATININE - SERUM 4.7 mg/dL (0.6-1.2)
--- NOTE | 2016-12-23 08:15 | General Progress Note ---
Subjective - Review of Systems Service Date: 12/23/16 Subjective: Patient was seen and examined this AM. More awake and alert this morning. dialysis today. herpetic lesions present to the left leg. will continue current dressing changes. Objective - Results Result Diagrams: 12/22/16 09:00 12/22/16 09:00 Recent Labs: Laboratory Last Values WBC 10.9 Th/cmm (4.8-10.8) H D 12/22/16 09:00 RBC 3.49 Mil/cmm (3.80-5.20) L 12/22/16 09:00 Hgb 11.8 gm/dL (12-16) L 12/22/16 09:00 Hct 35.5 % (41.0-60) L 12/22/16 09:00 MCV 101.6 fl (81-100) H 12/22/16 09:00 MCH 33.8 pg (27.0-31.0) H 12/22/16 09:00 MCHC Differential 33.3 pg (28.0-36.0) 12/22/16 09:00 RDW 17.5 % (11.5-20.0) 12/22/16 09:00 Plt Count 89 Th/cmm (150-400) L 12/22/16 09:00 MPV 9.3 fl 12/22/16 09:00 Neutrophils % 84.3 % (40.0-80.0) H 12/22/16 09:00 Band Neutrophils % 2 % (0-10) 12/18/16 06:09 Lymphocytes % 8.7 % (20.0-50.0) L 12/22/16 09:00 Monocytes % 6.5 % (2.0-10.0) 12/22/16 09:00 Eosinophils % 0.5 % (0.0-5.0) 12/22/16 09:00 Basophils % 0.0 % (0.0-2.0) 12/22/16 09:00 Neutrophils (Manual) 82 % (40-80) H 12/18/16 06:09 Lymphocytes 9 % (20-50) L 12/18/16 06:09 Monocytes 6 % (2-10) 12/18/16 06:09 Eosinophils 1 % (0-5) 12/18/16 06:09 Basophils 0 % (0-3) 12/13/16 19:37 Nucleated RBCs 1.0 % (0-0) H 12/18/16 06:09 Platelet Estimate DECREASED PLATELETS (NORMAL) 12/18/16 06:09 Platelet Morphology NORMAL (NORMAL) 12/18/16 06:09 Polychromasia 1+ 12/18/16 06:09 Anisocytosis 1+ 12/17/16 06:42 RBC Morph Micro Appear ABNORMAL (NORMAL) 12/18/16 06:09 PT 16.0 SECONDS (9.5-11.5) H 12/21/16 05:00 INR 1.51 (0.5-1.4) H 12/21/16 05:00 PTT (Actin FS) 39.0 SECONDS (26.0-38.0) H 12/13/16 19:37 Specimen Source Arterial 12/18/16 22:48 Sample Site R-B 12/18/16 22:48 pH 7.37 (7.35-7.45) 12/18/16 22:48 pCO2 47.0 mmHg (35.0-45.0) H 12/18/16 22:48 pO2 85.0 mmHg (80.0-100.0) 12/18/16 22:48 HCO3 26.0 mEq/L (20.0-26.0) 12/18/16 22:48 Base Excess 1.4 mEq/L (-3.0-3.0) 12/18/16 22:48 O2 Saturation 96.0 % (92.0-100.0) 12/18/16 22:48 Mario Test P 12/18/16 22:48 Vent Rate NA 12/18/16 22:48 Inspired O2 32 12/18/16 22:48 Tidal Volume NA 12/18/16 22:48 PEEP NA 12/18/16 22:48 Pressure (ins/psv/peep) NA 12/18/16 22:48 Critical Value RPINEIRA 12/18/16 22:48 Sodium 134 mEq/L (136-145) L 12/22/16 09:00 Potassium 3.3 mEq/L (3.5-5.1) L 12/22/16 09:00 Chloride 100 mEq/L (98-107) 12/22/16 09:00 Carbon Dioxide 24.8 mEq/L (21.0-31.0) 12/22/16 09:00 Anion Gap 12.5 (7.0-16.0) 12/22/16 09:00 BUN 36 mg/dL (7-25) H 12/22/16 09:00 Creatinine 4.7 mg/dL (0.6-1.2) H* 12/22/16 09:00 Est GFR ( Amer) TNP 12/22/16 09:00 Est GFR (Non-Af Amer) TNP 12/22/16 09:00 BUN/Creatinine Ratio 7.7 12/22/16 09:00 Glucose 171 mg/dL (70-105) H 12/22/16 09:00 POC Glucose 89 MG/DL (70 - 105) 12/18/16 19:57 Hemoglobin A1c % 5.1 % (4.0-6.0) 12/15/16 07:44 Calcium 8.7 mg/dL (8.6-10.3) 12/22/16 09:00 Total Bilirubin 2.1 mg/dL (0.3-1.0) H 12/22/16 09:00 AST 34 U/L (13-39) 12/22/16 09:00 ALT 12 U/L (7-52) 12/22/16 09:00 Alkaline Phosphatase 90 U/L (34-104) 12/22/16 09:00 Ammonia 51 umol/L (16-53) 12/21/16 05:00 Total Protein 4.8 gm/dL (6.0-8.3) L 12/22/16 09:00 Albumin 2.0 gm/dL (3.7-5.3) L 12/22/16 09:00 Globulin 2.8 gm/dL 12/22/16 09:00 Albumin/Globulin Ratio 0.7 (1.0-1.8) L 12/22/16 09:00 Triglycerides 146 mg/dL (<150) 12/15/16 07:44 Cholesterol 67 mg/dL (<200) 12/15/16 07:44 LDL Cholesterol Direct 18 mg/dL (75-193) L 12/15/16 07:44 HDL Cholesterol 7 mg/dL (23-92) L 12/15/16 07:44 TSH 1.39 uIU/ml (0.34-5.60) 12/15/16 07:44 Random Vancomycin 22.3 ug/mL (5.0-40.0) 12/22/16 09:00 Hepatitis A IgM Ab Negative (Negative) 12/20/16 14:37 Hep Bs Antigen Negative (Negative) 12/20/16 14:37 Hep B Core IgM Ab Negative (Negative) 12/20/16 14:37 Hepatitis C Antibody 0.1 s/co ratio (0.0-0.9) 12/20/16 14:37 - Physical Exam Vitals and I&O: Vital Signs Temp 97.6 F 12/23/16 07:52 Pulse 89 12/23/16 07:52 Resp 19 12/23/16 07:52 BP 146/65 12/23/16 07:52 Pulse Ox 100 12/23/16 07:52 Intake & Output 12/22/16 12/23/16 12/23/16 18:59 06:59 18:59 Intake Total 450 1460 Balance 450 1460 Weight (lbs) 85.729 kg 85.445 kg Intake: Intake, IV Amount 100 1100 D5-0.9%Ns 1,000 ml @ 50 1000 mls/hr IV .Q20H [facility] Rx#: [id number] Piperacillin Sodium/ 100 100 Tazobact 2.25 gm In Sodium Chloride 0.9% 50 ml @ 100 mls/hr IV Q8HR [facility] Rx#:[id number] Oral 350 360 Other: # Voids 3 3 # Bowel Movements 2 2 Stool Characteristics Soft Formed Active Medications: Current Medications Acetaminophen/Hydrocodone Bitart ([place] 5mg/325mg) 1 tab PO Q6H PRN PRN Reason: Pain Stop: 02/20/17 02:56 Last Admin: 12/22/16 22:05 Dose: 1 tab Amiodarone HCl (Cordarone) 200 mg PO BID ESMER Stop: 02/13/17 16:59 Last Admin: 12/22/16 16:10 Dose: 200 mg Calcitriol (Rocaltrol) 0.25 mcg PO DAILY E[facility] Stop: 02/12/17 08:59 Last Admin: 12/22/16 09:34 Dose: 0.25 mcg Calcium Carbonate (Calcium Carb) 600 mg PO TID ESMER Stop: 02/12/17 08:59 Last Admin: 12/22/16 20:33 Dose: 600 mg Folic Acid (Folate) 1 mg PO DAILY [facility] Stop: 02/12/17 08:59 Last Admin: 12/22/16 09:35 Dose: 1 mg Piperacillin Sod/Tazobactam (Sod 2.25 gm/ Sodium Chloride) 50 mls @ 100 mls/hr IV Q8HR [facility] Stop: 02/13/17 04:59 Last Infusion: 12/23/16 05:07 Dose: Infused Norepinephrine Bitartrate 4 mg (/ Dextrose) 254 mls @ 19.05 mls/hr IV TITR PRN ; Protocol; 5 MCG/MIN PRN Reason: BP MAINTENANCE (PER PROTOCOL) Stop: 02/17/17 00:56 Last Admin: 12/19/16 20:36 Dose: 5.9 mcg/min, 22.47 mls/hr Dextrose/Sodium Chloride (D5-0.9%Ns) 1,000 mls @ 50 mls/hr IV .Q20H [facility] Stop: 02/18/17 14:29 Last Admin: 12/23/16 02:32 Dose: 50 mls/hr Vancomycin HCl 1 gm/ Sodium (Chloride) 250 mls @ 165 mls/hr IV ONCE ONE Stop: 12/23/16 10:30 Lactobacillus Rhamnosus (Culturelle) 1 each PO DAILY [facility] Stop: 02/14/17 08:59 Last Admin: 12/22/16 09:34 Dose: 1 each Lactulose (Cephulac) 30 gm PO TID [facility] Stop: 02/18/17 14:44 Last Admin: 12/22/16 20:33 Dose: 30 gm Miscellaneous (Clinical Monitoring) 1 [facility] DAILY PRN PRN Reason: RENAL Stop: 02/12/17 11:19 Miscellaneous (Probiotic Screen) 1 [facility] PRN PRN PRN Reason: PROTOCOL Stop: 02/13/17 09:47 Pantoprazole Sodium (Protonix) 40 mg PO DAILY [facility] Stop: 02/12/17 08:59 Last Admin: 12/22/16 09:35 Dose: 40 mg Propranolol HCl (Inderal) 20 mg PO TID [facility] Stop: 02/12/17 08:59 Last Admin: 12/22/16 20:33 Dose: 20 mg Rifaximin (Xifaxan) 200 mg PO Q12H [facility] Stop: 02/12/17 08:59 Last Admin: 12/22/16 20:33 Dose: 200 mg Sevelamer Carbonate (Renvela) 800 mg PO TID ESMER Stop: 02/12/17 08:59 Last Admin: 12/22/16 20:33 Dose: 800 mg Vitamin B Complex/Vit C/Folic Acid (Vitamin B Complex W/Vitamin C) 1 tab PO DAILY [facility] Stop: 02/12/17 08:59 Last Admin: 12/22/16 09:34 Dose: 1 tab General: No acute distress, no Alert (intermittent confusion but conversant) HEENT: Atraumatic, PERRLA, EOMI Neck: Supple Cardiovascular: Normal S1, Normal S2 Lungs: Clear to auscultation Abdomen: Bowel sounds Extremities: Other (lue avf +), no Clubbing, no Cyanosis, no Edema Skin: Rash (vesicular rash present to the left hip cellulitis) Assessment/Plan - Problem List Patient Problems: All Active Problems Anemia (Acute) D64.9 Cellulitis (Acute) L03.90 Chronic atrial fibrillation (Acute) I48.2 Diabetes mellitus (Acute) E11.9 ESRD (end stage renal disease) on dialysis (Acute) N18.6, Z99.2 Herpes zoster (Acute) B02.9 Left hip pain (Acute) M25.552 BRADLEY (nonalcoholic steatohepatitis) (Acute) K75.81 Peripheral vascular disease (Acute) I73.9 Thrombocytopenia (Acute) D69.6 - Assessment Assessment: ALOC ... resolved. Acute Kidney Insufficiency on CKD ... will order gentle hydration of NS @ 50cc/ hr. hepatic encephalopathy .... repeat ammonia level, continue lactulose SD left leg pain secondary to cellulitis ... continue IV antibiotics per ID herpes zoster ... on acyclovir ESRD on HD per nephro Diabetes Mellitus ... continue to monitor, SSI Chronic Atrial Fibrillation ... will order Cardiology consults. please see dictated report Thrombocytopenia secondary to liver cirrhosis ... will order PT/INR Anemia stable PVD BRADLEY For transfer to SNF following dialysis. - Plan Plan: eft leg pain cellulitis herpes zoster End Stage Renal Disease on HD Diabetes Mellitus Chronic Atrial Fibrillation Thrombocytopenia Anemia PVD BRADLEY Nutritional Asmnt/Malnutr-PDOC - Dietary Evaluation Malnutrition Findings (Please click <Entered> for more info): Nutritional Asmnt/Malnutrition Start: 12/15/16 15: 13 Text: Status: Complete Freq: Document 12/15/16 15:13 [facility] (Rec: 12/15/16 15:28 [facility] [place]-[id number]) Nutritional Asmnt/Malnutrition Patient General Information Nutritional Screening High Risk Screening Diagnosis Left leg pain, rash suspicious of herpes zoster Pertinent Medical Hx/Surgical Hx CVA, TIA, ESRD on dialysis, DM Subjective Information Pt is a 71-year-old female admitted with chief complaint of pain to left side of hip. Pt was asleep and unarousable to sound. Pt appears overwt with loose skin. RD unable to complete full malnutrition- focused physical assessment. RN Gabby reports that pt feeds self independently. Pt has no teeth but currently tolerating food; RN request for soft foods in case. RD discussed with Dr. Domínguez, texture change approved. Current Diet Order/ Nutrition Support Renal Patient / S.O Indicated Pertinent Medications Rocaltrol, Calcium Carb, Cleocin, Folate, Morphine, Protonix, Renevla, Vitamin B Complex Pertinent Labs (12/14) BUN 45H and Creatinine 5 .8H (increasing), Total Bilrubin 2H, Alkaline Phosphatase 132H, Albumin 2.6L , Ammonia 89H Nutritional Hx/Data Height 1.55 m Height (Calculated Centimeters) 154.9 Current Weight (lbs) 66.224 kg Weight (Calculated Kilograms) 66.2 Weight (Calculated Grams) 22705.5 Gary Body Weight 105 % Gary Body Weight 139 Weight Status Overweight GI Symptoms GI Symptoms None Last BM Difficult in: Chewing Food Allergies No Cultural/Ethnic/Temple Belief No preferences noted. Skin Integrity/Comment: Jf 17. No skin breakdown. Rash and bruises noted. Current %PO Good (75-100%) Estimated Nutritional Goals BEE in Kcals: Using Current wt Calories/Kcals/Kg Based on current wt 66.4 kg with consideration of dialysis Kcals Calculated 8431-8118 kcals/day (25-30 kcals/kg) Protein: Using Current wt Protein g/kg: Based on current wt 66.4 kg with consideration of dialysis Protein Calculated 80-93 gm/day (1.2-1.4 gm/kg) Fluid: ml Per MD/DO due to renal failure Nutritional Problem 1. Problem Problem Possible chewing difficulty related to Etiology complete edentulism as evidenced by Signs/Symptoms: RN reports. Malnutrition Alert Protein-Calorie Malnutrition N/A Is there a minimum of two criteria No selected? Query Text:Check all the applicable criteria. A minimum of two criteria are recommended for diagnosis of either severe or non-severe malnutrition. Malnutrition Related to Morbid Obesity Malnutrition related to morbid obesity No Intervention/Recommendation Comments 1. Recommend mechanical soft chopped, 90-gram renal diet to better meet estimated nutritional needs. Expected Outcomes/Goals Expected Outcomes/Goals Have pt meet at least 75% of estimated nutritional needs with acceptable tolerance. Physician Parameters for PEM Serum Albumin (g/dl) 2.4 - 3.0 (Moderate)
[2016-12-23 09:04] LABS: % EOSINOPHILS 0.5 % (0.0-5.0); % MONOCYTES 3.7 % (2.0-10.0); % NEUTROPHILS 89.8 % (40.0-80.0); HEMATOCRIT 36.7 % (41.0-60); HEMOGLOBIN 12.3 gm/dL (12-16); MEAN CELL VOLUME 102.2 fl (81-100); MEAN CORPUSCULAR HEMOGLOBIN 34.3 pg (27.0-31.0); MEAN CORPUSCULAR HGB CONC 33.6 pg (28.0-36.0); MEAN PLATELET VOLUME 9.3 fl; NEUTROPHILE ABSOLUTE 10.6 Th/cmm (1.8-8.0); WHITE BLOOD COUNT 11.8 Th/cmm (4.8-10.8)
[2016-12-23 09:07] LABS: PLATELET COUNT 111 Th/cmm (150-400)
[2016-12-23] MEDS: Sevelamer Carnonate 800 mg Tab PO SCH ×3 (09:12→20:10)
[2016-12-23] MEDS: Pantoprazole 40 mg EC Tab PO SCH (09:12)
[2016-12-23] MEDS: Lactobacillus Rhamnosus 10 Billion CFU Capsule PO SCH (09:13)
[2016-12-23] MEDS: Lactulose 10 Gm/15 mL 30mL UDC PO SCH ×3 (09:14→20:11)
[2016-12-23] MEDS: Vitamin B Complex w/Vitamin C Tab PO SCH (09:14)
[2016-12-23 09:26] LABS: ALB/GLOB RATIO 0.6 (1.0-1.8); ALKALINE PHOSPHATASE 96 U/L (34-104); ANION GAP 14.3 (7.0-16.0); BUN - UREA NITROGEN 43 mg/dL (7-25); BUN/CREATININE RATIO 7.8; CHLORIDE 102 mEq/L (98-107); GLUCOSE 233 mg/dL (70-105); POTASSIUM SERUM 3.3 mEq/L (3.5-5.1); SGOT 23 U/L (13-39); SGPT/ALT 11 U/L (7-52); SODIUM SERUM 135 mEq/L (136-145)
[2016-12-23 09:37] LABS: CREATININE - SERUM 5.5 mg/dL (0.6-1.2)
[2016-12-23] MEDS: Venelex 60gm Tube TP SCH (16:36)
[2016-12-23] MEDS: Hydrocodone/APAP 5mg/325mg Tab PO PRN (21:32)
--- NOTE | 2016-12-24 11:04 | Discharge Summary ---
DATE OF DISCHARGE: 12/24/2016 PRELIMINARY DIAGNOSES: 1. Left leg pain. 2. Herpes zoster. 3. Cellulitis. 4. End-stage renal disease, on hemodialysis. 5. Diabetes mellitus. 6. Cerebrovascular accident. 7. Hypokalemia. 8. Chronic atrial fibrillation. 9. Thrombocytopenia. 10. Anemia. 11. Peripheral vascular disease. 12. Hepatic encephalopathy. DISCHARGE DIAGNOSES: 1. Left leg pain. 2. Herpes zoster. 3. Cellulitis. 4. End-stage renal disease, on hemodialysis. 5. Diabetes mellitus. 6. Cerebrovascular accident. 7. Hypokalemia. 8. Chronic atrial fibrillation. 9. Thrombocytopenia. 10. Anemia. 11. Peripheral vascular disease. 12. Hepatic encephalopathy. BRIEF HISTORY OF PRESENT ILLNESS: This is a 71-year-old female who presents to [facility] ER with complaints of pain to her left side. The patient presented with rash, which began a few days prior to admission. Denies any falls or trauma. The patient has a history of end-stage renal disease, on hemodialysis. Had dialysis one day prior to admission and developed extreme pain to the left side with presence of rash. The patient's past medical history includes CVA, TIA, history of diabetes, also has a history of end-stage renal disease, on hemodialysis. While in the ER, her initial lab work revealed white count of 4.5, hemoglobin 12.6, hematocrit 37.9, platelets was 44, bands were noted to be elevated at 12, lymphocytes noted to be elevated. Her PT/INR was 14.5 and 1.3. Sodium was 139, potassium 2.9, chloride 97, bicarbonate 26, BUN 40, creatinine elevated at 5.2. The patient was subsequently admitted for further evaluation and treatment. HOSPITAL COURSE: The patient did improve during her hospital stay, was initially seen and evaluated by Infectious Disease, was started on IV antibiotics to cover for cellulitis. Please see dictated report. The patient developed progression of her rash turning into cellulitis and was seen by General Surgery and had wound debridement to her left upper thigh and lower leg. Please see dictated report from general surgeon. The patient following had increased dehydration and was found to be hypotensive and spent a day and half in ICU for closed monitoring, was given IV fluid hydration, which improved and was subsequently transferred back to Med/Surg. A CT of the head was ordered due to increasing encephalopathy. CAT scan, however, did not show any acute disease. She was eventually discharged and [facility], wound dressing changes, and continued IV antibiotics. ROBERTS [place]AP[place]# [id number]
== END 2016-12-23 22:26 | DRG 871 ==
LOC: ER 18:21 → TELE 22:15 → ICU 12-18 21:25 → TELE 12-21 06:42
PROVIDERS: ADMIT Family Medicine; ATTEND Family Medicine
PROC: 0HDJXZZ Extraction of Left Upper Leg Skin, External Approach (ICD-10-PCS; principal; 2016-12-18)
PROC: 5A1D60Z (ICD-10-PCS; 2016-12-23)
DX: A41.9 Sepsis, unspecified organism (principal); N18.6 End stage renal disease; I12.0 Hypertensive chronic kidney disease with stage 5 chronic kidney disease or end stage renal disease; D69.6 Thrombocytopenia, unspecified; E11.21 Type 2 diabetes mellitus with diabetic nephropathy; L03.116 Cellulitis of left lower limb; B02.9 Zoster without complications; I48.2 Chronic atrial fibrillation; E87.6 Hypokalemia; E11.22 Type 2 diabetes mellitus with diabetic chronic kidney disease; K75.81 Nonalcoholic steatohepatitis (NASH); H54.61 Unqualified visual loss, right eye, normal vision left eye; K74.60 Unspecified cirrhosis of liver; R21 Rash and other nonspecific skin eruption; R56.9 Unspecified convulsions; E11.51 Type 2 diabetes mellitus with diabetic peripheral angiopathy without gangrene; D50.9 Iron deficiency anemia, unspecified; E11.40 Type 2 diabetes mellitus with diabetic neuropathy, unspecified; K72.90 Hepatic failure, unspecified without coma; E86.0 Dehydration; Z79.899 Other long term (current) drug therapy; Z99.2 Dependence on renal dialysis
CPT/HCPCS: 36415-UA; 70450-TC; 73060-TC-LT; 73501; 73560-TC-LT; 73590-TC-LT; 80053-TC; 80061-TC; 80074-90; 80202-TC; 82140-TC; 82803-TC; 82948-90; 83036-90; 84443-TC; 85007-TC; 85025-TC; 85027-TC; 85610-TC; 90732; 90937; 93005; 93925-TC; 94760; 96379; J1644; J2270; J2405; J2543; J3370; J7030; J7040; J7042; P9045; P9046; X3401; X5958; X6452; Z7610